=== PATIENT | male | born 1960 | race Caucasian/White ===

== ENCOUNTER → 2020-08-14 13:48 | Outpatient (BNVA) | payer OTHER, SELFPAY | PROVIDERS: PCP Internal Medicine; Referring Provider Internal Medicine; Visit Provider Internal Medicine | DX: R06.00 Dyspnea, unspecified (principal); J90 Pleural effusion, not elsewhere classified; N04.9 Nephrotic syndrome with unspecified morphologic changes; Z87.891 Personal history of nicotine dependence | CPT/HCPCS: 99203; 99214 ==

== ENCOUNTER 2020-09-05 12:34 | Outpatient (REF) | payer OTHER, SELFPAY ==
[2020-09-05 14:33] LABS: Glucose Urine UA NEG (NEG); Leukocyte Esterase Urine NEG (NEG); Nitrite Urine NEG (NEG); PH 6.5 (5.0-8.0); Specific Gravity - Urine 1.025 (1.005-1.025); Urine Blood 3+ (NEG); Urine Ketones NEG (NEG); Urine Protein 3+ MG/DL (NEG-TRACE)
[2020-09-05 14:34] LABS: Appearance Urine HAZY; Color Urine DARK YELLOW
[2020-09-05 14:40] LABS: Albumin Level 2.2 g/dL (3.5-5.0); Blood Urea Nitrogen 17 mg/dL (9-16); Calcium 7.4 mg/dL (8.4-10.2); Cholesterol 299 mg/dL; Estimated Glomerular Filt Rate > 60; HDL Cholesterol 46 mg/dL; LDL Cholesterol Calculated 230 mg/dl; Magnesium 2.2 mg/dL (1.6-2.6); Phosphorus 3.1 mg/dL (2.7-4.5); Triglycerides 116 mg/dL
[2020-09-05 14:43] LABS: Mucus Urine TRACE /LPF; RBC Urine 50-75 /HPF (0); WBC Urine 0-2 /HPF (0-4)
[2020-09-05 15:54] LABS: Creatinine Urine 293.96 mg/dL; Protein/Creatinine Ratio, Ur 6.55 (<0.2); Total Protein Urine Random 1925 mg/dL (<12)
[2020-09-05 15:55] LABS: Total Protein Urine Random 1925 mg/dL (<12)
[2020-09-05 17:10] LABS: Anion Gap 10 (12-20); Carbon Dioxide 27 mmol/L (22-29); Chloride 104 mmol/L (96-108); Potassium 3.8 mmol/l (3.3-5.1); Sodium 137 mmol/L (135-145)
[2020-09-05 18:43] LABS: Renal w Reflex Lab Use Only Order verified
[2020-09-08 17:57] LABS: LLE Markers 23
== END 2020-09-05 12:35 | disposition home or self-care (01) ==
LOC: HO.LAB 12:34
PROVIDERS: PCP Internal Medicine; Visit Provider Internal Medicine Nephrology
DX: N04.9 Nephrotic syndrome with unspecified morphologic changes (principal); N05.9 Unspecified nephritic syndrome with unspecified morphologic changes
CPT/HCPCS: 36415; 80051; 80061; 81001; 82040; 82043; 82310; 82565; 83735; 84100; 84156; 84520; 87086

== ENCOUNTER → 2020-09-10 16:32 | Outpatient (BNVA) | payer OTHER, SELFPAY | PROVIDERS: PCP Internal Medicine; Referring Provider Internal Medicine; Visit Provider Internal Medicine | DX: J44.9 Chronic obstructive pulmonary disease, unspecified (principal); J90 Pleural effusion, not elsewhere classified; Z79.899 Other long term (current) drug therapy; Z87.891 Personal history of nicotine dependence | CPT/HCPCS: 99212 ==

== ENCOUNTER 2020-09-26 10:59 | Outpatient (REF) | payer OTHER, SELFPAY ==
--- NOTE | 2020-09-26 13:23 | PFT_ITS ---
FLOWS: FEV1 of 57% of predicted at 2.30 L. FVC 57% of predicted at 3.04 L. FEV1 to FVC ratio of 0.76. No bronchodilator response. LUNG VOLUMES: Total lung capacity 61% of predicted at 4.68 L. Residual volume 64% of predicted at 1.54 L. Slow vital capacity 60% of predicted at 3.14 L. Expiratory reserve volume 76% of predicted at 1.22 L. Diffusion capacity is severely decreased, diffusion capacity adjust to being mildly decreased after correction for alveolar ventilation. IMPRESSION: Moderate restrictive ventilatory defect with no bronchodilator response. Decreased diffusion capacity suggests emphysema. MD MALINDA Lai/MODL / [id number]
== END 2020-09-26 11:00 | disposition home or self-care (01) ==
LOC: HO.RESP 10:59
PROVIDERS: PCP Internal Medicine; Visit Provider Internal Medicine
DX: R06.00 Dyspnea, unspecified (principal)
CPT/HCPCS: 94060; 94727; 94729

== ENCOUNTER 2020-09-26 14:06 | Outpatient (REF) | payer OTHER, SELFPAY ==
--- NOTE | 2020-09-26 | MR_ITS ---
EXAMINATION: MR LUMBAR SPINE WITHOUT AND WITH CONTRAST CLINICAL INFORMATION: Spinal stenosis. Neurogenic claudication. COMPARISON: CT abdomen and pelvis from 11/30/2019. CT chest from 01/25/2020. TECHNIQUE: MRI of the lumbar spine was obtained using routine sequences following the administration of 9 mL of Gadavist intravenous contrast. FINDINGS: Normal anatomic alignment. Moderate degenerative disease at L2-L3, L4-L5, and L5-S1. Overall, there is mildly decreased marrow signal throughout. Mixed Modic type discogenic endplate changes including mild Modic type I discogenic edema/enhancement from L2-L5. No suspicious marrow edema. The vertebral body heights are largely maintained. The conus medullaris terminates at the level of L2. The distal spinal cord is normal in appearance. No abnormal contrast enhancement. Moderate anasarca. Otherwise, no significant abnormalities of the paraspinal musculature. Limited evaluation of the intra-abdominal structures without significant abnormalities. The abdominal aorta is of normal contour and caliber. AXIAL SPINAL LEVELS: L1-L2: Normal annular contour. There is moderate bilateral facet joint arthropathy. There is no neural foraminal stenosis. There is no spinal canal stenosis. L2-L3: Shallow diffuse disc bulge. There is moderate bilateral facet joint arthropathy. There is no neural foraminal stenosis. There is narrowing of the subarticular zones with no overt spinal canal stenosis centrally. L3-L4: Mild diffuse disc bulge. There is moderate bilateral facet joint arthropathy. There is moderate right and mild left neural foraminal stenosis. There is narrowing of the subarticular zones with no overt spinal canal stenosis centrally moderate diffuse disc bulge. L4-L5: Moderate diffuse disc bulge. There is moderate bilateral facet joint arthropathy. There is moderate to severe left worse than right neural foraminal stenosis. There is stenosis of the left greater than right subarticular zones with mild spinal canal stenosis centrally. L5-S1: Mild diffuse disc bulge with superimposed right foraminal protrusion. There is moderate bilateral facet joint arthropathy. There is moderate to severe right worse than left neural foraminal stenosis. There is no spinal canal stenosis. MR/MR lumbar spine wo/w con IMPRESSION: 1. Moderate multilevel degenerative spinal arthropathy of the lumbar spine as described in detail above. Most notably, there is mild spinal canal stenosis at L4-L5. Narrowings of the subarticular zones from L2-L5. Moderate to severe neural foraminal stenoses from L3-S1. 2. Generalized decreased marrow signal throughout. Recommend correlation with potential underlying anemia/myelogenous disorders. 3. Moderate anasarca.
--- NOTE | 2020-09-26 14:14 | XR_ITS ---
EXAMINATION: XR SKULL CLINICAL INFORMATION: Metal shavings in eye. Foreign body. Pre-MRI screening exam. COMPARISON: None available. TECHNIQUE: 3 radiographic views of the orbits (lateral view and PA view looking up and looking down). FINDINGS: The osseous orbits are intact. Plate and screw fixation of the left frontozygomatic suture. Otherwise, no demonstrated metallic objects within the orbits. The visualized paranasal sinuses are largely clear. XR/XR pre mri screening IMPRESSION: Prior plate and screw fixation of the left frontozygomatic suture. Otherwise, no demonstrated radiopaque foreign bodies.
== END 2020-09-26 14:07 | disposition home or self-care (01) ==
LOC: HO.MRI 14:06
PROVIDERS: Visit Provider Psychiatry & Neurology Neurology
DX: M48.00 Spinal stenosis, site unspecified (principal); R06.00 Dyspnea, unspecified
CPT/HCPCS: 72158; A9585

== ENCOUNTER 2020-10-10 17:46 | Outpatient (REF) | payer OTHER, SELFPAY ==
--- NOTE | 2020-10-10 18:15 | MR_ITS ---
EXAMINATION: MR BRAIN/ORBITS WITHOUT AND WITH CONTRAST CLINICAL INFORMATION: Asymptomatic optic edema. COMPARISON: None available. TECHNIQUE: Multiplanar, multisequence MRI of the brain and orbits was obtained before and following the administration of 10 mL of Gadavist intravenous contrast. FINDINGS: No focal restricted diffusion is demonstrated to suggest acute or subacute cerebral ischemia. Few scattered periventricular and deep white matter T2 FLAIR hyperintensities most commonly seen with mild microangiopathy. The ventricles and sulcal spaces are proportional without evidence of obstructive hydrocephalus. No midline shift. No abnormalities of the posterior fossa with normal appearance of the brainstem and cerebellum. Normal positioning of the cerebellar tonsils. Susceptibility artifact associated with a metal plate along the left lateral orbital ridge. Otherwise, no demonstrated abnormalities of the orbits. No significant preseptal or retrobulbar edema. Normal appearance of the globes. Normal symmetric appearance of the extraocular musculature. No abnormalities of the intraconal or extraconal adipose tissue. Normal appearance of the optic nerves and their sheaths. Normal appearance of the lacrimal glands. No orbital fluid collections. No abnormalities of the orbital apices. Normal appearance of the optic chiasm. Normal appearance of the pituitary gland and infundibulum. Normal appearance of the cavernous sinuses without abnormal filling defects. No demonstrated abnormalities of the intracranial internal carotid or anterior cerebral arteries. Normal arterial and venous vascular flow voids are present. No abnormal contrast enhancement. The visualized premaxillary, retromaxillary, pterygopalatine fossa, and temporal fossa adipose tissue is maintained. Normal, homogeneous marrow signal. Mild mucosal thickening of the paranasal sinuses. No signal abnormalities within the mastoids. Pneumatization of the left petrous apex. MR/MR head/brain wo/w con IMPRESSION: 1. No acute intracranial abnormalities. No abnormal intracranial enhancement. 2. No MRI abnormalities of the orbits. 3. Minimal nonspecific white matter changes, most commonly seen with mild microangiopathy.
== END 2020-10-10 17:47 | disposition home or self-care (01) ==
LOC: HO.MRI 17:46
PROVIDERS: Visit Provider Psychiatry & Neurology Neurology
DX: H47.10 Unspecified papilledema (principal)
CPT/HCPCS: 70553; A9585

== ENCOUNTER 2020-11-04 11:53 | Outpatient (REF) | payer OTHER, SELFPAY ==
[2020-11-04 14:00] LABS: Anion Gap 7 (12-20); Blood Urea Nitrogen 23 mg/dL (9-16); Calcium 7.3 mg/dL (8.4-10.2); Carbon Dioxide 28 mmol/L (22-29); Chloride 109 mmol/L (96-108); Estimated Glomerular Filt Rate > 60; Magnesium 1.9 mg/dL (1.6-2.6); Phosphorus 3.5 mg/dL (2.7-4.5); Potassium 4.4 mmol/l (3.3-5.1); Sodium 140 mmol/L (135-145)
[2020-11-04 14:12] LABS: Vitamin D 25-OH Total 7.2 ng/mL (>30)
[2020-11-04 14:13] LABS: SARS COV2 IgG Negative (Negative)
[2020-11-04 16:47] LABS: Glucose Urine UA NEG (NEG); Leukocyte Esterase Urine NEG (NEG); Nitrite Urine NEG (NEG); Specific Gravity - Urine 1.025 (1.005-1.025); Urine Blood 3+ (NEG); Urine Ketones NEG (NEG); Urine Protein 3+ MG/DL (NEG-TRACE)
[2020-11-04 16:47] LABS: Renal w Reflex Lab Use Only Order verified
[2020-11-04 16:48] LABS: Appearance Urine CLEAR; Color Urine YELLOW
[2020-11-04 16:55] LABS: Bacteria Urine 1+ /LPF; WBC Urine 0 /HPF (0-4)
[2020-11-04 17:36] LABS: Creatinine Urine 131.94 mg/dL; Protein/Creatinine Ratio, Ur 3.93 (<0.2); Total Protein Urine Random 519 mg/dL (<12)
[2020-11-04 18:16] LABS: Creatinine Urine 131.82 mg/dL
[2020-11-05 18:33] LABS: Calcium (PTHI) 7.5 mg/dL (8.6-10.3); PTHI 80 pg/mL (14-64)
== END 2020-11-04 11:54 | disposition home or self-care (01) ==
LOC: HO.LAB 11:53
PROVIDERS: Visit Provider Internal Medicine Nephrology
DX: N04.9 Nephrotic syndrome with unspecified morphologic changes (principal); N05.9 Unspecified nephritic syndrome with unspecified morphologic changes; Z20.828 Contact with and (suspected) exposure to other viral communicable diseases
CPT/HCPCS: 80051; 81001; 82040; 82043; 82306; 82310; 82565; 83735; 83970; 84100; 84156; 84520; 86769

== ENCOUNTER → 2020-11-13 15:27 | Outpatient (BNVA) | payer OTHER, SELFPAY | PROVIDERS: Visit Provider Internal Medicine | DX: N04.9 Nephrotic syndrome with unspecified morphologic changes (principal); J90 Pleural effusion, not elsewhere classified; R06.00 Dyspnea, unspecified; J98.4 Other disorders of lung | CPT/HCPCS: 99212 ==

== ENCOUNTER 2020-12-18 16:43 | Outpatient (REF) | payer OTHER, SELFPAY | END 2020-12-18 16:44 | disposition home or self-care (01) | LOC: HO.LAB 16:43 | PROVIDERS: Visit Provider Internal Medicine | DX: Z20.822 Contact with and (suspected) exposure to COVID-19 (principal) | CPT/HCPCS: 36415; C9803; U0003; U0005 ==

== ENCOUNTER → 2021-01-27 10:48 | Outpatient (BNVA) | payer OTHER, SELFPAY | PROVIDERS: PCP Internal Medicine; Visit Provider Internal Medicine | DX: J98.4 Other disorders of lung (principal); J90 Pleural effusion, not elsewhere classified; R91.1 Solitary pulmonary nodule; R06.00 Dyspnea, unspecified; Z87.891 Personal history of nicotine dependence; Z79.899 Other long term (current) drug therapy | CPT/HCPCS: 99212 ==

== ENCOUNTER 2021-02-18 07:54 | Inpatient (IN) | payer OTHER, SELFPAY ==
--- NOTE | ~2021-02-18 | MR_ITS ---
EXAMINATION: MR BRAIN WITHOUT CONTRAST CLINICAL INFORMATION: Uncontrollable movement. Right arm paralysis. COMPARISON: CTA head and neck from 02/18/2021. TECHNIQUE: MRI of the brain was obtained using routine sequences without contrast. FINDINGS: Moderately motion degraded exam. There is a region of restricted diffusion involving the left arrington radiata and left caudate body. Faintly increased T2 FLAIR hyperintensity in this region. No additional restricted diffusion. No evidence of acute or chronic hemorrhagic products on heme-sensitive imaging. Scattered periventricular and deep white matter T2 FLAIR hyperintensities consistent with mild underlying microangiopathy. The ventricles are normal in morphology and size. No abnormal mass effect. No midline shift. Normal appearance of the pituitary gland. Normal positioning of the cerebellar tonsils. Normal arterial and venous vascular flow voids are present. Normal, homogeneous marrow signal. Mild mucosal thickening of the paranasal sinuses. No signal abnormalities within the mastoids. MR/MR head/brain wo con IMPRESSION: 1. Acute infarct of the left arrington radiata and left caudate body. No evidence of hemorrhagic conversion. 2. No additional acute intracranial abnormalities. Mild underlying microangiopathy.
--- NOTE | ~2021-02-18 | CT_ITS ---
EXAMINATION: CT HEAD WITHOUT CONTRAST (STROKE PROTOCOL) CLINICAL INFORMATION: Stroke protocol. Right arm paralysis since 1:30 AM. COMPARISON: MRI brain 10/10/2020 TECHNIQUE: Contiguous axial imaging was performed from the skull base to vertex without intravenous administration of contrast. Axial images are provided. This CT examination was performed using dose optimization techniques as appropriate, variously including the following: *Automated exposure control *Adjustment of mA and/or kV according to patient size (this includes techniques or standardized protocols for targeted exams where dose is matched to indication/reason for exam; i.e. extremities or head) *Use of iterative reconstruction technique DLP: 761 mGy-cm FINDINGS: There is no intracranial hemorrhage, hematoma, or extra-axial fluid collection. The ventricles are normal in size. There is no hydrocephalus, edema, or mass effect. The bueno-white matter differentiation appears symmetric. There is no visible acute territorial infarct or mass lesion. There is some left vertex dural or vascular calcification. No central dense vessel sign. There is calcification in the right basal ganglia. The calvarium appears intact. There is no pneumocephalus or orbital emphysema. The visualized sinuses and middle ears and mastoid air cells show no significant mucosal thickening. There are no air-fluid levels. There is prior reduction with hardware left superior lateral orbit. Results called and discussed with Dr. Willie Santos in the Emergency Department at [address]/CT head for stroke IMPRESSION: No acute intracranial abnormality.
--- NOTE | ~2021-02-18 | CT_ITS ---
EXAMINATION: CTA NECK WITH CONTRAST (STROKE) CTA BRAIN WITH CONTRAST (STROKE) CLINICAL INFORMATION: Suspect acute stroke. Assess for major vessel occlusion. Please call report. COMPARISON: CT scan of the head earlier 02/18/2021. MRI scan of the brain 10/10/2020. TECHNIQUE: Test bolus series followed by intravenous administration 70 mL of Omnipaque 350. Helical imaging was performed in the axial plane from the mediastinum to the skull vertex. The degree of stenosis is based off NASCET criteria. The data was processed at the geospatial information technologist workstation for generation of MIP images. Three-dimensional volume rendered reformatted images were also generated at an offline 3-D workstation. This CT examination was performed using dose optimization techniques as appropriate, variously including the following: *Automated exposure control *Adjustment of mA and/or kV according to patient size (this includes techniques or standardized protocols for targeted exams where dose is matched to indication/reason for exam; i.e. extremities or head) *Use of iterative reconstruction technique DLP: 1333 mGy-cm. FINDINGS: CT Head: There is no evidence of acute intracranial hemorrhage or territorial infarction. No abnormal mass-effect or midline shift is seen. Razo to white matter differentiation is well preserved. No extra-axial fluid collections are identified. The ventricles are normal in size. There is a small calcification in the right basal ganglia. Brain parenchymal attenuation otherwise appears normal. There is no abnormal enhancement. There are no acute osseous findings. Plate and screws are noted over the left zygomaticofrontal region. The mastoid air cells and visualized portions of the paranasal sinuses are well-aerated. CTA Neck: There is a classic configuration of the arch of the aorta. Beam hardening artifact from intravenous contrast mild distorts evaluation of the vasculature at the thoracic inlet. The great vessels of the neck are widely patent. The subclavian arteries appear normal bilaterally. The common carotid arteries have normal caliber. The carotid bifurcations bilaterally appear normal. Mild motion artifact is noted at the level of C2. The internal carotid arteries in the neck bilaterally have uniform and normal caliber. The origins of both vertebral arteries are well seen and appear normal. Both vertebral arteries are widely patent and demonstrate good opacification throughout their cervical course. The left vertebral artery is dominant. Nonvascular: There are moderate left and mild right pleural effusions. There are adjacent atelectatic changes. There are relatively extensive emphysematous changes in the upper lung zones bilaterally. There are multiple subpleural blebs and bullae are noted bilaterally. The thyroid gland appears normal. There is no cervical lymphadenopathy. There are moderate spondylitic and facet arthropathic changes in the cervical spine. CTA Head: In the anterior circulation, the distal internal carotid arteries within the neck appear normal. The intracranial internal carotid arteries and their bifurcations appear normal. The middle and anterior cerebral arteries bilaterally demonstrate normal caliber with no evidence of focal stenosis, aneurysm or vascular malformation. There is normal arborization of the middle cerebral artery branches. The anterior communicating artery is normal. In the posterior circulation, the left vertebral artery is dominant. The vertebral arteries intradurally have normal caliber; there is partial duplication of the proximal and mid intradural right vertebral artery. The basilar artery appears normal. The posterior cerebral arteries have normal caliber. The venous sinuses opacify normally. CT/CT angio head neck stroke IMPRESSION: CT head and neck: 1. There are no acute intracranial bleeds or territorial infarcts. 2. There are no masses or areas of abnormal enhancement. 3. There is fixation hardware in the left frontozygomatic region. 4. There are extensive emphysematous changes. 5. There are moderate left and mild right pleural effusions. Correlate with chest x-ray. CTA head and neck: 1. Artifact mildly degrades imaging as described above. 2. In the neck, there are no significant stenoses, and the carotid and vertebral arteries are widely patent. 3. Intracranially, there are no aneurysms, vascular malformations or areas of focal stenosis. This critical result was discussed with Dr. Kirt Santos by telephone on 02/18/2021 at 8:55 AM and it was ascertained that the content and urgency of the report was understood at the time of direct communication.
--- NOTE | ~2021-02-18 | XR_ITS ---
EXAMINATION: XR CHEST CLINICAL INFORMATION: Weakness. Rule out pneumonia. COMPARISON: CT chest 01/25/2020 TECHNIQUE: Frontal view of the chest was obtained. FINDINGS: The lungs are somewhat expanded with blunting of left CP angle and haziness left lung base likely effusion with underlying atelectasis. There is mild haziness in the right lung base with mild blunting of CP angle from small pleural effusion. Heart size is normal. Pulmonary vascularity is slightly prominent but no congestion seen. No gross bony abnormality seen. XR/XR chest 1V IMPRESSION: Bibasilar haziness and blunting of CP angle from pleural effusion, minimally larger on the left side.
--- NOTE | 2021-02-18 07:58 | ECG_ITS ---
Test Reason : STROKE PROTOCOL Blood Pressure : / mmHG Vent. Rate : 069 BPM Atrial Rate : 069 BPM P-R Int : 180 ms QRS Dur : 086 ms QT Int : 396 ms P-R-T Axes : 086 043 052 degrees QTc Int : 424 ms Normal sinus rhythm Normal ECG When compared with ECG of 02-DEC-2019 16:35, Vent. rate has decreased BY 34 BPM T wave amplitude has increased in Lateral leads Referred By: Kirt Santos Electronically Signed By:RASHAWN ROMERO
[2021-02-18 08:02] LABS: Prothrombin Time Whole Bld POC 11.9 sec (11.1-13.5)
[2021-02-18 08:10] VITALS: BP 125/67; BP 138/68; PULSE 74; PULSE 80; RESP 16; TEMP 36.9; O2SAT 100; BMI 27.3
[2021-02-18 08:27] LABS: MANUAL DIFF FLAG NO
[2021-02-18 08:29] LABS: Basophils Percent Auto 0.3 % (0-2); Eosinophils Absolute Auto 0.3 X10*3/uL (0.0-0.4); Eosinophils Percent Auto 5.4 % (0-4); Hematocrit 34.2 % (42-52); Hemoglobin 10.8 g/dl (14.0-18.0); Imm Gran Abs Auto 0.02 X10*3/uL (0.00-0.03); Imm Gran Pct Auto 0.3 % (0.0-0.4); Lymphocytes Absolute Auto 1.4 X10*3/uL (1.2-4.9); Lymphocytes Percent Auto 24.2 % (20-40); Mean Corpuscular HGB Conc 31.6 g/dl (31.0-36.0); Mean Corpuscular Hemoglobin 26.7 pg (27.0-33.0); Mean Corpuscular Volume 84.4 fL (80-98); Mean Platelet Volume 8.7 fL (9.4-12.4); Monocytes Absolute Auto 0.6 X10*3/uL (0.1-1.2); Monocytes Percent Auto 10.4 % (2-11); Neutrophils Absolute Auto 3.5 X10*3/uL (2.0-8.3); Neutrophils Percent Auto 59.4 % (45-73); Platelet Count 196 X10*3/uL (160-400); Red Blood Count 4.05 X10*6/uL (4.60-5.80); Red Cell Distribution Width 14.6 % (11.0-16.0); White Blood Count 5.9 X10*3/uL (4.8-10.8)
[2021-02-18 08:32] LABS: Glucose, Whole Blood 105 mg/dL (60-115)
[2021-02-18 08:33] LABS: INTERNATIONAL NORM RATIO 0.9 (0.9-1.1); Prothrombin Time 10.8 SEC (10.8-13.0)
[2021-02-18 08:36] LABS: Partial Thromboplastin Time 28.7 SEC (24.1-38.0)
[2021-02-18 08:39] LABS: Stroke Lab Use COMPLETE
[2021-02-18] MEDS: iohexoL 350 MG/ML 100 ML INFUS..BTL IV (08:39)
[2021-02-18 08:40] VITALS: BP 134/90
[2021-02-18 08:50] LABS: Alanine Aminotransferase 11 U/L (0-40); Albumin Level 1.7 g/dL (3.5-5.0); Alkaline Phosphatase 139 U/L (39-117); Anion Gap 8 (12-20); Aspartate Amino Transferase 24 U/L (5-37); Bilirubin Direct < 0.2 mg/dL (0.0-0.5); Bilirubin Total 0.3 mg/dL (0.0-1.0); Blood Urea Nitrogen 27 mg/dL (9-16); Calcium 7.2 mg/dL (8.4-10.2); Carbon Dioxide 23 mmol/L (22-29); Chloride 110 mmol/L (96-108); Creatinine Clr Calc Pharmacy 80.2; Estimated Glomerular Filt Rate > 60; Glucose Random 109 mg/dL (60-115); Potassium 4.9 mmol/L (3.3-5.1); Sodium 136 mmol/L (135-145)
[2021-02-18 08:53] LABS: Troponin-I High Sensitivity < 3.5 ng/L (<3.5-35.0)
--- NOTE | 2021-02-18 09:32 | ED_ITS ---
HPI - Neuro Symptoms/Deficit General Chief Complaint: Stroke Stated Complaint: STROKE ALERT,R SIDED WEAKNESS SINCE 0130 Time Seen by Provider: 02/18/21 07:58 Source: patient and family (, In[place]) Mode of arrival: EMS Limitations: no limitations History of Present Illness HPI Narrative: 60-year-old male who presents emergency department for evaluation of right-sided weakness. The patient woke up at 0130 hours to go to the bathroom. He states that he noticed weakness in his right arm and right leg. According to his , the patient fell backwards in the bathroom, he did not have any loss of consciousness. He was having difficulty moving his right arm and right leg but refused to go to the emergency department. The help the patient back to bed and the patient insisted on lying down on the floor. The patient woke up at 5:00 a.m. and was still unable to move his right arm and right leg. The states that it took her several hours to convince him to come to the emergency department. The patient presented to the emergency department as a stroke alert. I examined the patient immediately on presentation. He had some slightly dysarthric speech but answered all questions appropriately. The patient was only able to minimally move his right arm and right leg against gravity. He had decreased light touch on the right side compared to the left. The patient was taken immediately to CT scan for for CT scan of the head and a CTA of the head and neck Related Data Home Medications Medication Instructions Recorded Confirmed bupropion HCl 200 mg tablet,12 hr 200 mg PO DAILY 08/14/20 08/14/20 sustained-release carbidopa 50 mg-levodopa 200 1 tab PO DAILY 08/14/20 08/14/20 mg-entacapone 200 mg tablet cyclobenzaprine 5 mg tablet 5 mg PO BEDTIME 08/14/20 08/14/20 docusate sodium 100 mg tablet 100 mg PO BID 08/14/20 08/14/20 hydroxyzine pamoate 50 mg capsule 50 mg PO BEDTIME 08/14/20 08/14/20 melatonin 5 mg capsule 5 mg PO .qhs cap 08/14/20 08/14/20 ropinirole 1 mg tablet 1 mg PO BEDTIME 08/14/20 08/14/20 sertraline 50 mg tablet 75 mg PO DAILY tab 08/14/20 08/14/20 sildenafil 100 mg tablet 100 mg PO DAILY PRN 08/14/20 08/14/20 tamsulosin 0.4 mg capsule 0.4 mg PO BEDTIME 08/14/20 08/14/20 albuterol sulfate 90 mcg/actuation 2 puff INHALATION Q6H PRN 01/27/21 aerosol inhaler Allergies Allergy/AdvReac Type Severity Reaction Status Date / Time Penicillins [PENICILLINS] Allergy Unknown UNKNOWN Verified 01/27/21 10:58 Review of Systems Review of Systems: Yes all other systems are reviewed and are negative Neurologic: Reports Abnormal speech present (Dysarthric but comprehensible) [facility] Past Medical History [facility] Narrative: Past medical history, see below: Patient being evaluated for optic nerve swelling noted on 09/[address] Ramos, neurologist at [facility]. Patient also has Sjogren syndrome. The patient is a former smoker. He stopped smoking 6 years prior. He has a greater than 35 pack-year history of smoking, denies alcohol use. States he occasionally smokes marijuana. Medical History (Updated 02/18/21 @ 10:27 by Kirt Santos MD) Dyspnea on exertion Nephrotic syndrome Pleural effusion on right Pulmonary nodule Restrictive lung disease Social History Social History Smoking Status: Former smoker Years Smoked: 30 years of smoking Advance Directives: Yes Advance Directives Information Provided: Yes Advance Directives on File: No Physical Exam Vital Signs: Vital Signs: Last Vital Signs Temp 98.4 F 02/18/21 08:10 Pulse 80 02/18/21 08:10 Resp 16 02/18/21 08:10 BP 134/90 H 02/18/21 08:40 Pulse Ox 100 02/18/21 08:10 Body Mass Index 27.3 Const: General: cooperative, no acute distress, alert and awake Orientati on/consciousness: oriented to person, oriented to place and Other orientation findings (Speech is dysarthric but comprehensible) Limitations: no limitations HENMT: Head: Yes normal to inspection, Yes normocephalic and Yes atraumatic Ears: external ears normal Eyes: General: appearance normal, both eyes and all related structures Periorbital: periorbital findings normal Eyelids: Yes eyelids normal Conjunctivae: conjunctivae normal Sclerae: sclerae normal Corneas: corneas normal Pupils: Equal, round and reactive pupils present Direct Ophthalmoscopy: normal light reflex Neck: Neck: Yes normal visual inspection and Yes supple Lymphatic: no lymphadenopathy noted Chest: Chest palpation & inspection: normal inspection of the chest and normal palpation of entire chest wall Resp: Effort & Inspection: normal respiratory effort, abnormal respiratory pattern, no audible wheezes and no respiratory distress Auscultation: clear to auscultation bilaterally, no crackles, no rales, no rhonchi and no wheezes Cardio: Rate: regular rate Rhythm: regular rhythm Heart sounds: S1 normal heart sound present, S2 normal heart sound present and Murmur heart sound present GI: Inspection: No distended Palpation (GI): Soft to palpation, nontender, no guarding and No hepatosplenomegaly present Auscultation: normal bowel sounds : General: Yes no CVA tenderness Back/Spine/Pelvis: Back: no CVA tenderness Skin: General skin exam: no rashes or lesions noted Lesions: no lesions Rashes: no rashes Wounds: no wounds Neuro: General: oriented to person and oriented to place Cranial nerves: Ye s CN's II-XII intact bilaterally and Yes Equal, round and reactive pupils present Cognition (Neuro): normal cognition Speech: Abnormal speech present (Dysarthric but comprehensible) Motor exam (neuro): Other motor observations present (Minimal movement against gravity of right upper and lower extremities) Extrem: General: Yes normal to inspection, Yes full ROM, Yes no pedal edema and Yes no calf tenderness Psych: Appearance: grossly normal Mental Status: mental status grossly normal Speech and movement: Clear speech present Affect: normal affect Thought process: Normal thought process present Course Course Course Narrative: 60-year-old male who presents emergency department for evaluation of right upper and lower extremity weakness that began at 1:30 a.m. on the morning arrival. The patient had a NIH stroke scale of 10 and had only very minimal movement against gravity of his right upper and right lower extremities with some slight dysarthric speech. By the time the patient arrived in the emergency department at around 0820 he was outside the therapeutic window for tPA. CT scan of the brain revealed no acute process. CTA of the head and neck revealed no retrievable clots. CBC revealed mild anemia with an H&H of 10.8 and 34.2 which is chronic. Point of care glucose was 105. LFTs revealed an elevated alkaline phosphatase of 139. CK was elevated at 221 (the patient did sleep on the floor overnight). High sensitivity troponin was not detectable. I did discuss these findings with the covering neurologist Dr. Johns who recommended that the patient received aspirin 81 mg orally and that the patient be admitted to the hospital for further workup of his acute symptoms/stroke. 1026: I did discuss the patient's presentation with the covering hospitalist, Dr. Wiggins and the patient will be admitted to the hospital service for further treatment. MDM - Neuro Symptoms/Deficit Lab Data Result diagrams: 02/18/21 08:23 02/18/21 08:23 Labs: Lab Results 02/18/21 02/18/21 02/18/21 Range/Units 07:59 08:23 08:23 WBC 5.9 (4.8-10.8) X10*3/uL RBC 4.05 L (4.60-5.80) X10*6/uL Hgb 10.8 L (14.0-18.0) g/dl Hct 34.2 L (42-52) % MCV 84.4 (80-98) fL MCH 26.7 L (27.0-33.0) pg MCHC 31.6 (31.0-36.0) g/dl RDW 14.6 (11.0-16.0) % Plt Count 196 (160-400) X10*3/uL MPV 8.7 L (9.4-12.4) fL Immature Gran % (Auto) 0.3 (0.0-0.4) % Neut % (Auto) 59.4 (45-73) % Lymph % (Auto) 24.2 (20-40) % [place] % (Auto) 10.4 (2-11) % Eos % (Auto) 5.4 H (0-4) % Baso % (Auto) 0.3 (0-2) % Lymph # (Auto) 1.4 (1.2-4.9) X10*3/uL [place] # (Auto) 0.6 (0.1-1.2) X10*3/uL Eos # (Auto) 0.3 (0.0-0.4) X10*3/uL Baso # (Auto) 0.0 (0.0-0.2) X10*3/uL Abs Immat Gran (auto) 0.02 (0.00-0.03) X10*3/uL Absolute Neuts (auto) 3.5 (2.0-8.3) X10*3/uL Absolute Nucleated RBC 0.000 (0.0-0.012) X10*3/uL Nucleated RBC % (auto) 0.0 (0.0-0.2) /100WBC PT 10.8 (10.8-13.0) SEC Whole Blood PT 11.9 (11.1-13.5) sec INR 0.9 (0.9-1.1) Whole Blood INR 1.0 (0.9-1.1) APTT 28.7 (24.1-38.0) SEC Sodium (135-145) mmol/L Potassium (3.3-5.1) mmol/L Chloride (96-108) mmol/L Carbon Dioxide (22-29) mmol/L Anion Gap (12-20) BUN (9-16) mg/dL Creatinine (0.5-1.4) mg/dL Estim Creat Clear Calc Estimated GFR POC Glucose (60-115) mg/dL Random Glucose (60-115) mg/dL Calcium (8.4-10.2) mg/dL Total Bilirubin (0.0-1.0) mg/dL Direct Bilirubin (0.0-0.5) mg/dL AST (5-37) U/L ALT (0-40) U/L Alkaline Phosphatase (39-117) U/L Total Creatine Kinase (38-174) U/L Troponin I High Sens (<3.5-35.0) ng/L Total Protein (6.5-8.0) g/dL Albumin (3.5-5.0) g/dL 02/18/21 02/18/21 02/18/21 Range/Units 08:23 08:23 08:26 WBC (4.8-10.8) X10*3/uL RBC (4.60-5.80) X10*6/uL Hgb (14.0-18.0) g/dl Hct (42-52) % MCV (80-98) fL MCH (27.0-33.0) pg MCHC (31.0-36.0) g/dl RDW (11.0-16.0) % Plt Count (160-400) X10*3/uL MPV (9.4-12.4) fL Immature Gran % (Auto) (0.0-0.4) % Neut % (Auto) (45-73) % Lymph % (Auto) (20-40) % [place] % (Auto) (2-11) % Eos % (Auto) (0-4) % Baso % (Auto) (0-2) % Lymph # (Auto) (1.2-4.9) X10*3/uL [place] # (Auto) (0.1-1.2) X10*3/uL Eos # (Auto) (0.0-0.4) X10*3/uL Baso # (Auto) (0.0-0.2) X10*3/uL Abs Immat Gran (auto) (0.00-0.03) X10*3/uL Absolute Neuts (auto) (2.0-8.3) X10*3/uL Absolute Nucleated RBC (0.0-0.012) X10*3/uL Nucleated RBC % (auto) (0.0-0.2) /100WBC PT (10.8-13.0) SEC Whole Blood PT (11.1-13.5) sec INR (0.9-1.1) Whole Blood INR (0.9-1.1) APTT (24.1-38.0) SEC Sodium 136 (135-145) mmol/L Potassium 4.9 (3.3-5.1) mmol/L Chloride 110 H (96-108) mmol/L Carbon Dioxide 23 (22-29) mmol/L Anion Gap 8 L (12-20) BUN 27 H (9-16) mg/dL Creatinine 1.12 (0.5-1.4) mg/dL Estim Creat Clear Calc 80.2 Estimated GFR > 60 POC Glucose 105 (60-115) mg/dL Random Glucose 109 (60-115) mg/dL Calcium 7.2 L (8.4-10.2) mg/dL Total Bilirubin 0.3 (0.0-1.0) mg/dL Direct Bilirubin < 0.2 (0.0-0.5) mg/dL AST 24 (5-37) U/L ALT 11 (0-40) U/L Alkaline Phosphatase 139 H (39-117) U/L Total Creatine Kinase 221 H (38-174) U/L Troponin I High Sens < 3.5 (<3.5-35.0) ng/L Total Protein 4.0 L (6.5-8.0) g/dL Albumin 1.7 L (3.5-5.0) g/dL NIH Stroke Scale Internal: Initial- Upon Arrival Level of Consciousness: Alert Level of Consciousness Questions: Answers both questions correctly Level of Consciousness Commands: Performs both tasks correctly Best Gaze: Normal Visual: No visual loss Facial Palsy: Normal Motor Arm (Right): No movement Motor Arm (Left): No drift Motor Leg (Right): No movement Motor Leg (Left): No drift Limb Ataxia: Absent Sensory: Mild to moderate sensory loss Best Language: No aphasia Dysarthia: Mild to moderate dysarthria Extinction and Inattention: No abnormality Score: 10 Discharge Plan Discharge Clinical Impression: Stroke Patient Disposition: Admitted As Inpatient Prescriptions: No Action bupropion HCl 200 mg tablet sustained-release 12 hr 200 mg PO DAILY RF: 0 omqffkopj-zljrrikk-khtbtrkcrq 50-200-200 mg tablet 1 tab PO DAILY RF: 0 cyclobenzaprine 5 mg tablet 5 mg PO BEDTIME RF: 0 docusate sodium 100 mg tablet 100 mg PO BID RF: 0 hydroxyzine pamoate 50 mg capsule 50 mg PO BEDTIME RF: 0 melatonin 5 mg capsule 5 mg PO .qhs RF: 0 ropinirole 1 mg tablet 1 mg PO BEDTIME RF: 0 sertraline 50 mg tablet 75 mg PO DAILY RF: 0 sildenafil 100 mg tablet 100 mg PO DAILY PRNRF: 0 tamsulosin 0.4 mg capsule 0.4 mg PO BEDTIME RF: 0 albuterol sulfate [ProAir HFA] 90 mcg/actuation HFA aerosol inhaler 2 puff inhalation Q6H PRNRF: 0
[2021-02-18 10:00] VITALS: BP 140/77; PULSE 75; RESP 16; TEMP 36.9; O2SAT 96
[2021-02-18] MEDS: Aspirin 81 MG TAB.CHEW PO (10:56)
[2021-02-18] MEDS: ondansetron HCL 4 MG/2 ML VIAL IVPUSH (10:57)
[2021-02-18 12:00] VITALS: BP 147/80; PULSE 81; RESP 16; TEMP 36.8; O2SAT 96
--- NOTE | 2021-02-18 12:38 | MHC.STROKE ---
Addendum entered by Mireya Oneal RN 02/20/21 12:10: I MET WITH THE PATIENT AND HIS SO MARISOL TO REINFORCE STROKE EDUCATION. I PROVIDED A SCREENSHOT OF THE MRI LOCATION OF THE STROKE AND EXPLAINED THE DEFICITS RELATED TO THAT AREA OF THE BRAIN. I ANSWERED ALL OF THEIR QUESTIONS. HE IS INTERESTED IN GOING TO [place] AND HAS BEEN ACCEPTED PENDING INUSRANCE APPROVAL ALTHOUGH HE STATED [facility]. I ALSO SPOKE WITH THE SOTERO AND SHE REINFORCED THIS WITH THE PATIENT AND MARISOL. THEY ARE PLANNING FOR DISCHARGE TODAY. Addendum entered by Mireya Oneal RN 02/18/21 16:45: I MET WITH THE PATIENT AND SIGNIFICANT OTHER TO PROVIDE STROKE EDUCATION AND REVIEW THE PLAN OF CARE. THE PATIENT WAS LKW ON 02/17/21 2030 WHEN HE WENT TO BED ACCORDING TO MARISOL THE SO. SHE SAID HE GOT UP AROUND 0130 AND HE WAS WEAK BUT HE HAS A HISTORY OF NEUROLOGICAL ISSUES AND SEES A [id number] AT [facility], HE EVEN HAD A RECENT MRI BRAIN W/WO CONTRAST ON 02/04/21 AND SHE REPORTED NO ABNORMAL FINDINGS BUT SHE THOUGHT THEY WANTED A MRV. I DID RELAY THIS TO DR FARRIS BUT HE SAID IT IS NOT NEEDED AT THIS TIME. PATIENT WAS EXCLUDED FROM TPA BASED ON DELAY IN ARRIVAL FROM ONSET OF SYMPTOMS. I EXPLAINED THE PLAN OF CARE, MARISOL MENTIONED THAT HIS MOTHER WILL BE IN WITH SOME QUESTIONS. HE HAS 2 SONS AND ONE OF THEM HAS SEVERE LUNG CANCER. THE FAMILY IS GOING THROUGH A LOT. 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 MRI IS PENDING AND ALL STROKE MEASURES ARE IN PLACE. I WILL CONTINUE TO FOLLOW. Original Note: 0750 EMS PRE-NOTIFIED FOR STROKE ALERT . 0758 NOTIFIED BY THE ED, STROKE ALERT CALLED IN BY [facility]. PATIENT WITH RIGHT HEMIPARESIS ONSET 0130. NIHSS = 10. STAT CTH AND CTA H/N. NO LVO. EXCLUDED FROM TPA DUE TO DELAY IN ARRIVAL FROM SYMPTOM ONSET. PASSED SWALLOW SCREEN AT 0830 PRIOR TO ANY PO. I WILL CONTINUE TO FOLLOW.
--- NOTE | 2021-02-18 13:24 | P.CNNE_ITS ---
History of Present Illness Data of Consult Service Date: 02/18/21 Primary Care Provider: 60 years old man with underlying history of nephrotic syndrome and restrictive lung disease noted a right-sided weakness at about 01:00 in the morning today but refused to come to emergency room. He went back to bed and woke up few hours later and still noted the weakness and then came to emergency room few hours after that. When he arrived he was already out of to acute treatment protocol for stroke window and was not treated with intravenous tPA. He was noted to have right hemiparesis. It was investigated with CTA that did not reveal any large vessel disease. He was admitted for further evaluation. There was no associated headache speech or language difficulty or eye symptoms. Or dizziness. Review of Systems Review of Systems: No cold or flu-like illness trauma or seizure-like episode PMFSH Past Medical History Medical History (Updated 02/18/21 @ 13:30 by Kimberly Johns MD) Dyspnea on exertion Nephrotic syndrome Pleural effusion on right Pulmonary nodule Restrictive lung disease Social History Social History Smoking Status: Former smoker Years Smoked: 30 years of smoking Advance Directives: Yes Advance Directives Information Provided: Yes Advance Directives on File: No Meds Allergies Allergy/AdvReac Type Severity Reaction Status Date / Time Penicillins [PENICILLINS] Allergy Unknown UNKNOWN Verified 01/27/21 10:58 Active Medications: Current Medications Generic Name Dose Route Start Last Admin Trade Name Freq PRN Reason Stop Dose Admin Pharmacy Consult 1 each 02/18/21 10:50 Consult Rx Perform Med Rec MISCELLANE ONCE PRN Consult order Home Medications Medication Instructions Recorded Confirmed Last Taken Type bupropion HCl 200 mg tablet,12 hr 200 mg PO DAILY 08/14/20 02/18/21 02/17/21 History sustained-release carbidopa 50 mg-levodopa 200 2 tab PO DAILY 08/14/20 02/18/21 02/17/21 History mg-entacapone 200 mg tablet hydroxyzine pamoate 50 mg capsule 50 mg PO BEDTIME 08/14/20 02/18/21 Unknown History ropinirole 1 mg tablet 1 mg PO DAILY 08/14/20 02/18/21 02/18/21 History ropinirole 4 mg PO BEDTIME 02/18/21 02/18/21 02/17/21 History sertraline 1 tab PO BEDTIME 02/18/21 02/18/21 02/17/21 History torsemide 3 tab PO DAILY 02/18/21 02/18/21 02/17/21 History Physical Exam Vital Signs: Vital Signs: Last Vital Signs Temp 98.2 F 02/18/21 12:00 Pulse 81 02/18/21 12:00 Resp 16 02/18/21 12:00 BP 147/80 H 02/18/21 12:00 Pulse Ox 96 02/18/21 12:00 Body Mass Index 27.3 He was alert and awake with normal spontaneity of speech fluency comprehension and affect. Pupils were equal and reactive to light and extraocular muscles were intact. Visual gottlieb seem to be full to threat. There was mild right- sided facial weakness of central type. He was unable to lift his arm and leg against gravity and unable to wiggle toes. He was able to wiggle his fingers. Reflexes were absent with flexor plantars. There was no obvious neglect. Speech was slightly slurred. Results Labs CBC & Chem 7: 02/18/21 08:23 02/18/21 08:23 Labs: Short CBC 02/18/21 Range/Units 08:23 WBC 5.9 (4.8-10.8) X10*3/uL Hgb 10.8 L (14.0-18.0) g/dl Hct 34.2 L (42-52) % Plt Count 196 (160-400) X10*3/uL BMP 02/18/21 08:23 Sodium 136 Potassium 4.9 Chloride 110 H Carbon Dioxide 23 BUN 27 H Creatinine 1.12 Calcium 7.2 L Cardiac Enzymes 02/18/21 Range/Units 08:23 Total Creatine Kinase 221 H (38-174) U/L Liver Function 02/18/21 Range/Units 08:23 Total Bilirubin 0.3 (0.0-1.0) mg/dL Direct Bilirubin < 0.2 (0.0-0.5) mg/dL AST 24 (5-37) U/L ALT 11 (0-40) U/L Alkaline Phosphatase 139 H (39-117) U/L Albumin 1.7 L (3.5-5.0) g/dL His head CT without contrast did not reveal any obvious abnormality and CTA of brain and neck did not reveal any obvious vascular lesion. EKG revealed normal sinus rhythm Assessment and Plan (1) Stroke: Qualifiers: CVA mechanism: unspecified Qualified Code(s): I63.9 - Cerebral infarction, unspecified Problem details: 60 years old man who probably has a pontine infarct. This type of infarct happen from atherothrombotic disease of small to medium size arteries. Unfortun ately impact of this type of stroke would be tremendous with per minute significant hemiparesis. At this time mainstay of management is avoidance of hypotension, anti-platelet agent, statin and control of other vascular risk factors. He could be treated with subQ heparin for DVT prophylaxis. PT OT consultation is recommended. I also recommend an MRI brain without contrast to definitively make the diagnosis. Status: Acute
[2021-02-18 13:42] LABS: Glucose Urine UA NEG (NEG); Leukocyte Esterase Urine NEG (NEG); Nitrite Urine NEG (NEG); Specific Gravity - Urine 1.015 (1.005-1.025); Urine Blood 3+ (NEG); Urine Ketones NEG (NEG); Urine Protein 3+ MG/DL (NEG-TRACE)
[2021-02-18 13:43] LABS: Appearance Urine CLEAR; Color Urine YELLOW
[2021-02-18 13:50] LABS: COVID-19 Test Negative (Negative); IDNOW Serial# 08D9AD1C
[2021-02-18 14:01] LABS: WBC Urine 0 /HPF (0-4)
--- NOTE | 2021-02-18 14:14 | P.HPHOSP_ITS ---
History of Present Illness Date of Service: 02/18/21 Chief Complaint: Right sided weakness and aphasia 60-year-old male with Neuropathy, no HTN, no Diabetes, no prior history of stroke. He has neuropathy and has frequent falls. Around 130, he woke to the bathroom and fell and thought it was usual fall related to neuropathy. Around 5 am, he was noticealbly weak on right side and with garbled speech and this time brought to the ED. CT of head and CT of head and neck shows no acute changes. ECG shows no afib. Neuology recommends MRI without contrast, Aspirin and Statin. Review of Systems Review of Systems: Gen: no fever Resp: no sob, no cough CV: no chest, no JOE, no leg edema GI: No n/v, no abd pain Neuro: weak on right side, garbled speech Yes all other systems are reviewed and are negative [facility] Medical History BPH (benign prostatic hyperplasia) Depression Dyspnea on exertion Facial fracture Nephrotic syndrome Pleural effusion on right Pulmonary nodule Restless leg Restrictive lung disease Sjogren's syndrome Surgical History H/O facial fracture repair H/O left knee surgery H/O thumb surgery Social History Household Members: Spouse Housing: House Do you presently have visiting nurse or other home services: No Smoking Status: Former smoker Years Smoked: 30 years of smoking Use of substances other than those prescribed or required for medical reasons: No Have you been hit, kicked, punched, or otherwise hurt by someone within the past year? If so, by whom?: No Do you feel safe in your current relationship?: No Is there a partner from a previous relationship who is making you feel unsafe now?: No Are you made to feel afraid or neglected: No Advance Directives: Yes Advance Directives Information Provided: Yes Advance Directives on File: No Advance Directives Date on File: 02/19/21 Do you have thoughts of harming others: None Do you have a plan to hurt others: No Plan Recently lost weight without trying: No Meds Allergies Allergy/AdvReac Type Severity Reaction Status Date / Time Penicillins [PENICILLINS] Allergy Unknown UNKNOWN Verified 01/27/21 10:58 Active Medications: Current Medications Generic Name Dose Route Start Last Admin Trade Name Alize PRN Reason Stop Dose Admin Heparin Sodium (Porcine) 5,000 unit 02/18/21 14:15 Heparin Sodium,Porcine 5,000 Unit/Ml Vial SUBCUT Q8H [facility] Dextrose/Sodium Chloride 1,000 mls @ 100 mls/hr 02/18/21 14:15 D5ns IVCONT .Q10H [facility] Pharmacy Consult 1 each 02/18/21 10:50 Consult Rx Perform Med Rec MISCELLANE ONCE PRN Consult order Sodium Chloride 3 ml 02/18/21 16:00 0.9 % Sodium Chloride Flush 3 Ml Syringe IVFLUSH QSHIFT [facility] Home Medications Medication Instructions Recorded Confirmed Last Taken Type bupropion HCl 200 mg tablet,12 hr 200 mg PO DAILY 08/14/20 02/18/21 02/17/21 History sustained-release carbidopa 50 mg-levodopa 200 2 tab PO DAILY 08/14/20 02/18/21 02/17/21 History mg-entacapone 200 mg tablet hydroxyzine pamoate 50 mg capsule 50 mg PO BEDTIME 08/14/20 02/18/21 Unknown History ropinirole 1 mg tablet 1 mg PO DAILY 08/14/20 02/18/21 02/18/21 History ropinirole 4 mg PO BEDTIME 02/18/21 02/18/21 02/17/21 History sertraline 1 tab PO BEDTIME 02/18/21 02/18/21 02/17/21 History torsemide 3 tab PO DAILY 02/18/21 02/18/21 02/17/21 History Physical Exam Vital Signs and Narrative: Vital Signs: Last Vital Signs Temp 98.2 F 02/18/21 12:00 Pulse 81 02/18/21 12:00 Resp 16 02/18/21 12:00 BP 147/80 H 02/18/21 12:00 Pulse Ox 96 02/18/21 12:00 Body Mass Index 27.3 Const: Other: Constitutional Awake and Alert, No apparent distress, speech is not audible HEENT--normal eye, normal eye movment, mouth is crooked to the left Neck Supple, No lymphadenopathy Cardiovascular RRR, No M/R/G, S1 S2, No S3 S4, No pedal edema Respiratory Lungs clear, No respiratory distress Gastrointestinal Non tender, Non-distended Skin No rash Neurological Alert & oriented x3, right sided paralysis, Psychological Appropriate affect Results Labs CBC and Chem 7: 02/18/21 08:23 02/18/21 08:23 Labs: Laboratory Results - last 24 hr 02/18/21 02/18/21 02/18/21 07:59 08:23 08:23 MCV 84.4 MCH 26.7 L MCHC 31.6 RDW 14.6 Plt Count 196 MPV 8.7 L Immature Gran % (Auto) 0.3 Neut % (Auto) 59.4 Lymph % (Auto) 24.2 Foard % (Auto) 10.4 Eos % (Auto) 5.4 H Baso % (Auto) 0.3 Lymph # (Auto) 1.4 Foard # (Auto) 0.6 Eos # (Auto) 0.3 Baso # (Auto) 0.0 Abs Immat Gran (auto) 0.02 Absolute Neuts (auto) 3.5 Absolute Nucleated RBC 0.000 Nucleated RBC % (auto) 0.0 PT 10.8 Whole Blood PT 11.9 INR 0.9 Whole Blood INR 1.0 APTT 28.7 Anion Gap Estim Creat Clear Calc Estimated GFR POC Glucose Random Glucose Calcium Total Bilirubin Direct Bilirubin AST ALT Alkaline Phosphatase Total Creatine Kinase Troponin I High Sens Total Protein Albumin Urine Color Urine Appearance Urine pH Ur Specific [place] Urine Protein Urine Glucose (UA) Urine Ketones Urine Blood Urine Nitrite Ur Leukocyte Esterase Urine RBC Urine WBC Ur Squamous Epith Cells Urine Bacteria COVID-19 ([facility]) COVID-19 Clin Com 02/18/21 02/18/21 02/18/21 08:23 08:23 08:26 MCV MCH MCHC RDW Plt Count MPV Immature Gran % (Auto) Neut % (Auto) Lymph % (Auto) Foard % (Auto) Eos % (Auto) Baso % (Auto) Lymph # (Auto) Foard # (Auto) Eos # (Auto) Baso # (Auto) Abs Immat Gran (auto) Absolute Neuts (auto) Absolute Nucleated RBC Nucleated RBC % (auto) PT Whole Blood PT INR Whole Blood INR APTT Anion Gap 8 L Estim Creat Clear Calc 80.2 Estimated GFR > 60 POC Glucose 105 Random Glucose 109 Calcium 7.2 L Total Bilirubin 0.3 Direct Bilirubin < 0.2 AST 24 ALT 11 Alkaline Phosphatase 139 H Total Creatine Kinase 221 H Troponin I High Sens < 3.5 Total Protein 4.0 L Albumin 1.7 L Urine Color Urine Appearance Urine pH Ur Specific [place] Urine Protein Urine Glucose (UA) Urine Ketones Urine Blood Urine Nitrite Ur Leukocyte Esterase Urine RBC Urine WBC Ur Squamous Epith Cells Urine Bacteria COVID-19 ([facility]ONNY) COVID-19 Clin Com 02/18/21 02/18/21 13:25 13:25 MCV MCH MCHC RDW Plt Count MPV Immature Gran % (Auto) Neut % (Auto) Lymph % (Auto) Foard % (Auto) Eos % (Auto) Baso % (Auto) Lymph # (Auto) Foard # (Auto) Eos # (Auto) Baso # (Auto) Abs Immat Gran (auto) Absolute Neuts (auto) Absolute Nucleated RBC Nucleated RBC % (auto) PT Whole Blood PT INR Whole Blood INR APTT Anion Gap Estim Creat Clear Calc Estimated GFR POC Glucose Random Glucose Calcium Total Bilirubin Direct Bilirubin AST ALT Alkaline Phosphatase Total Creatine Kinase Troponin I High Sens Total Protein Albumin Urine Color YELLOW Urine Appearance CLEAR Urine pH 7.0 Ur Specific [place] 1.015 Urine Protein 3+ H Urine Glucose (UA) NEG Urine Ketones NEG Urine Blood 3+ H Urine Nitrite NEG Ur Leukocyte Esterase NEG Urine RBC 10-14 H Urine WBC 0 Ur Squamous Epith Cells NONE Urine Bacteria NONE COVID-19 ([facility]ONNY) Negative COVID-19 Clin Com See Note Imaging Radiologist's Impressions: Impressions Chest X-Ray 02/18/21 07:58 IMPRESSION: Bibasilar haziness and blunting of CP angle from pleural effusion, minimally larger on the left side. Head CT 02/18/21 07:58 IMPRESSION: No acute intracranial abnormality. Head/Neck CTA 02/18/21 07:58 IMPRESSION: CT head and neck: 1. There are no acute intracranial bleeds or territorial infarcts. 2. There are no masses or areas of abnormal enhancement. 3. There is fixation hardware in the left frontozygomatic region. 4. There are extensive emphysematous changes. 5. There are moderate left and mild right pleural effusions. Correlate with chest x-ray. CTA head and neck: 1. Artifact mildly degrades imaging as described above. 2. In the neck, there are no significant stenoses, and the carotid and vertebral arteries are widely patent. 3. Intracranially, there are no aneurysms, vascular malformations or areas of focal stenosis. This critical result was discussed with Dr. Kirt Santos by telephone on 02/18/2021 at 8:55 AM and it was ascertained that the content and urgency of the report was understood at the time of direct communication. Head/Neck CTA 02/18/21 07:58 IMPRESSION: CT head and neck: 1. There are no acute intracranial bleeds or territorial infarcts. 2. There are no masses or areas of abnormal enhancement. 3. There is fixation hardware in the left frontozygomatic region. 4. There are extensive emphysematous changes. 5. There are moderate left and mild right pleural effusions. Correlate with chest x-ray. CTA head and neck: 1. Artifact mildly degrades imaging as described above. 2. In the neck, there are no significant stenoses, and the carotid and vertebral arteries are widely patent. 3. Intracranially, there are no aneurysms, vascular malformations or areas of focal stenosis. This critical result was discussed with Dr. Kirt Santos by telephone on 02/18/2021 at 8:55 AM and it was ascertained that the content and urgency of the report was understood at the time of direct communication. Assessment and Plan (1) Stroke: Qualifiers: CVA mechanism: unspecified Qualified Code(s): I63.9 - Cerebral infarction, unspecified Status: Acute (2) COPD (chronic obstructive pulmonary disease): Status: Acute (3) Nephrotic syndrome: Status: Acute 60 year male with neuropathy, COPD here with left sided stroke with right sided troy paresis --likely from embolic stroke Plan: Acute embolic stroke-with sided weakness -MRI without contrast -ASA, Statin, -PT, OT, speech therapy -Monitor for AFIB -Get Echo -Fastin lipids Depression--Continue SSRI (Stertraline), Bupropion, Hydroxyzine Restless leg syndrome--continue ropinirole ? Parkinsonian--continue levodopa Nephrotic syndrome--not active right now, continue Torsemide Subcutaneous heparin for DVT prophylaxis.
[2021-02-18] MEDS: Heparin Sodium,Porcine 5,000 UNIT/ML VIAL 5000 UNIT SUBCUT ×2 (16:37→23:19)
[2021-02-18] MEDS: Dextrose 5 % and 0.9 % NaCl 1,000 ML 100 ML IVCONT (16:37)
[2021-02-18 17:08] VITALS: BP 139/47; PULSE 67; RESP 10; TEMP 36.6; O2SAT 98
[2021-02-18 19:26] VITALS: BP 129/76; PULSE 81; RESP 13; TEMP 36.4; O2SAT 95
--- NOTE | 2021-02-18 19:29 | PC.NURSE ---
Pt aaox4 resting on stretcher in NAD, breathing with ease on 2L NC not baseline. Pt denies complaints of pain/discomfort at this time. when asked why pt is at hospital, he states this leg wasn't working, motioning to his RLE. This RN appreciates R side facial droop, significant RUE weakness with hand grasps, significant RLE weakness unable to dorsi/plantarflex, unable to lift off stretcher against gravity. Pt stretcher is in lowest locked position, rails raised, call serrato within reach. Pt NSR on ekg monitor.
--- NOTE | 2021-02-18 20:18 | PC.NURSE ---
Report attempted x1, awaiting RN to call back
[2021-02-18 20:28] LABS: Glucose, Whole Blood 92 mg/dL (60-115)
--- NOTE | 2021-02-18 21:42 | PC.NURSE ---
Report attempted x 2
--- NOTE | 2021-02-18 21:46 | PC.NURSE ---
Provider TT with caroline to continue home meds so this RN can medicate with Requip for restless leg per pt's request.
--- NOTE | 2021-02-18 22:21 | PC.NURSE ---
Report given to MONTANA Serrano
[2021-02-19] VITALS (13 sets, daily range): BP systolic 124–164; BP diastolic 68–88; PULSE 71–98; RESP 14–20; TEMP 36.2–37.1; O2SAT 94–98; BMI 27.3
[2021-02-19] MEDS: diphenhydrAMINE HCL 50 MG/ML VIAL 25 MG IVPUSH (00:46)
[2021-02-19 01:33] LABS: Glucose, Whole Blood 124 mg/dL (60-115)
[2021-02-19] MEDS: LORazepam 2 MG/ML VIAL 0.5 MG IVPUSH (01:45)
[2021-02-19] MEDS: rOPINIRole HCL 1 MG TABLET PO ×2 (02:37→08:08)
[2021-02-19] MEDS: Dextrose 5 % and 0.9 % NaCl 1,000 ML 100 ML IVCONT ×2 (06:10→19:59)
[2021-02-19] MEDS: Heparin Sodium,Porcine 5,000 UNIT/ML VIAL 5000 UNIT SUBCUT ×3 (06:17→21:52)
[2021-02-19 08:06] LABS: Cholesterol 298 mg/dL; HDL Cholesterol 36 mg/dL; LDL Cholesterol Calculated 233 mg/dl; Triglycerides 149 mg/dL
[2021-02-19] MEDS: Torsemide 20 MG TABLET 60 MG PO (08:08)
[2021-02-19] MEDS: buPROPion HCl XL 150 MG TAB.ER.24H PO (08:08)
[2021-02-19] MEDS: Aspirin Enteric Coated 81 MG TABLET.DR PO (08:09)
--- NOTE | 2021-02-19 10:00 | CA_ITS ---
Transthoracic Echocardiogram Patient (Last, First, Middle): Ramses Leonard, Gender: Male Date of : 1960 Age: 60 Procedure Date: 02/19/2021 Procedure Type: Transthoracic Echocardiogram Location: [facility] Height: 185.42 cm Weight: 93.9 kg BSA: 2.18 m2 Heart Rate: bpm BP: 160 / 80 mmHg Lead Coater: KOREY Referring MD: Michael Kim MD Symptoms: Stroke Study Quality: Fair ECG Rhythm: Sinus Conclusions: - The left ventricular systolic function is normal. The visually estimated ejection fraction is between 55-60%. - No obvious valvular pathology seen on this study. Findings Left Ventricle Normal left ventricular cavity size. There is normal left ventricular wall thickness. The left ventricular systolic function is normal. The visually estimated ejection fraction is between 55-60%. There is no evidence of regional wall motion abnormalities. Diastolic function is normal for age. Right Ventricle Normal right ventricular cavity size and systolic function. Atria Both atria are normal in size. Aortic Valve There is a normal trileaflet aortic valve. There is no aortic valve stenosis. There is no aortic valve regurgitation. Mitral Valve The mitral valve appears normal. There is no mitral valve regurgitation. There is no mitral valve stenosis. Pulmonic Valve The pulmonic valve was not well visualized. Tricuspid Valve Normal tricuspid valve structure. There is no tricuspid valve regurgitation. Tricuspid regurgitation envelope is inadequate for calculation of right ventricular systolic pressure. Great Vessels The aortic annulus, sinuses of valsalva, and asc aorta are normal in size. Venous The inferior vena cava is normal in size and collapses greater than 50% with inspiration. Pericardium/Pleural There is no evidence of pericardial effusion. Prior Study Comparison No significant change compared to prior study dated: 02/04/2020. Recommendations, Care & Conclusions No obvious valvular pathology seen on this study. Measurements 2D Linear Measurements IVSd: 0.87 0.6-0.9/0.6-1.0 cm LVIDd: 4.74 3.9-5.3/4.2-5.9 cm LVIDd Index: 2.17 2.4-3.2/2.2-3.1 cm/m2 LVIDs: 3.03 2.0-3.6 cm LVPWd: 0.88 0.7-1.1 cm Ao Root: 3.40 2.1-3.5 cm LA Diam: 3.30 2.7-3.8/3.0-4.0 cm LAIDs Index: 1.51 1.5-2.3 cm/m2 LV Mass: 173.41 67-162/88-224 g LV Mass Index: 79.54 43-95/49-115 g/m2 LVOT Diam: 2.20 3.0+(-)1.3 cm 2D Systolic Function EF 4C: 55.70 >55% EF 2C: 62.80 >55% EF BiP: 58.20 >55% Mitral Valve MV Pk E: 0.74 MV PK A: 0.82 MV Decel Time: 289.00 E/A: 0.90 E'Lateral: 12.80 E'Medial: 9.38 E/E' Med: 7.90 E/E' Lat: 5.80 PHT: 85.00 MVA PHT: 2.59 Decel Calvert: 2.55 Aortic Valve AoV Pk Pablo: 1.38 AoV Mn Pablo: 0.95 AoV VTI: 0.31 AoV Pk Grad: 8.00 Aov Mn Grad: 4.00 KENN Cont.VTI: 2.58 LVOT LVOT Pk Pablo: 0.92 LVOT Mn Pablo: 0.58 LVOT VTI: 0.21 LVOT Pk Grad: 3.00 LVOT Mn Grad: 2.00 LVOT Diam: 2.20 LVOT Area: 3.80 Diastolic Function MV Pk E: 0.74 MV Pk A: 0.82 E/A: 0.90 E'Medial: 9.38 E/E' Med: 7.90 E' Laterial: 12.80 E/E' Lat: 5.80 Great Vessels Aorta Ao Root-2D: 3.40 2.0-3.7 cm Ao Asc: 3.40 2.1-3.4 cm Updated in Other Vendor System with Status of Final Salvatore Fuentes MD electronically signed on 02/19/2021 3:35:08 PM with status of Final
--- NOTE | 2021-02-19 10:04 | HO.PM.IMPN ---
Subjective Subjective Date of Service: 02/19/21 Interval History: Seen in f/u for acute stroke with right sided paralysis. He remains weak on right side but his speech is clear Review of Systems Gen: no fever Resp: no sob, no cough CV: no chest, no JOE, no leg edema GI: No n/v, no abd pain Neuro: No confusion, weak on right side Physical Exam Vital Signs: Vital Signs: Last Vital Signs Temp 97.7 F 02/19/21 07:40 Pulse 83 02/19/21 08:24 Resp 18 02/19/21 07:40 BP 160/88 H 02/19/21 08:24 Pulse Ox 97 02/19/21 08:24 Body Mass Index 27.3 Const: Other: Constitutional Awake and Alert, No apparent distress, speech is not audible HEENT--normal eye, normal eye movment, mouth is crooked to the left Neck Supple, No lymphadenopathy Cardiovascular RRR, No M/R/G, S1 S2, No S3 S4, No pedal edema Respiratory Lungs clear, No respiratory distress Gastrointestinal Non tender, Non-distended Skin No rash Neurological Alert & oriented x3, right sided paralysis, Psychological Appropriate affect Objective Data Current Medications Generic Name Dose Route Start Last Admin Trade Name Freq PRN Reason Stop Dose Admin Acetaminophen 650 mg 02/18/21 19:33 Acetaminophen Supp 650 Mg Supp.Rect [place] Q6H PRN Pain, Mild (Pain Scale 1-3) Aspirin 81 mg 02/19/21 09:00 02/19/21 08:09 Aspirin Enteric Coated 81 Mg Tablet.Dr PO 81 mg DAILY MARTY Administration Bupropion HCl 150 mg 02/19/21 09:00 02/19/21 08:08 Bupropion Hcl Xl 150 Mg Tab.Er.24h PO 150 mg DAILY MARTY Administration Heparin Sodium (Porcine) 5,000 unit 02/18/21 14:15 02/19/21 06:17 Heparin Sodium,Porcine 5,000 Unit/Ml Vial SUBCUT 5,000 unit Q8H MARTY Administration Dextrose/Sodium Chloride 1,000 mls @ 100 mls/hr 02/18/21 14:15 02/19/21 08:09 D5ns IVCONT 0 mls/hr .Q10H MARTY Infusion Non-Formulary Medication 2 tab 02/19/21 09:00 Xnuffkyae-Gqsdofxc-Vqqxyoslyz PO DAILY COUNT INCLUDES THE [facility] Pharmacy Consult 1 each 02/18/21 10:50 Consult Rx Perform Med Rec MISCELLANE ONCE PRN Consult order Pravastatin Sodium 40 mg 02/19/21 21:00 Pravastatin Sodium 40 Mg Tablet PO BEDTIME MARTY Ropinirole HCl 4 mg 02/19/21 21:00 Ropinirole Hcl 1 Mg Tablet PO BEDTIME MARTY Ropinirole HCl 1 mg 02/19/21 09:00 02/19/21 08:08 Ropinirole Hcl 1 Mg Tablet PO 1 mg DAILY MARTY Administration Sertraline HCl 50 mg 02/19/21 21:00 Sertraline Hcl 50 Mg Tablet PO BEDTIME MARTY Sodium Chloride 3 ml 02/18/21 16:00 02/18/21 23:18 0.9 % Sodium Chloride Flush 3 Ml Syringe IVFLUSH Not Given QSHIFT MARTY Torsemide 60 mg 02/19/21 09:00 02/19/21 08:08 Torsemide 20 Mg Tablet PO 60 mg DAILY MARTY Administration Protocol Labs CBC & Chem 7: 02/18/21 08:23 02/18/21 08:23 Assessment and Plan (1) Stroke: Status: Acute (2) COPD (chronic obstructive pulmonary disease): Status: Acute (3) Nephrotic syndrome: Status: Acute Assessment and Plan: 60 year male with neuropathy, COPD here with left sided stroke with right sided troy paresis --likely from embolic stroke Plan: Acute embolic stroke-with sided weakness -MRI confirms acute infarct of the left arrington radiata and left caudate body. -ASA -PT, OT, speech therapy -No AFIB on monitor -Echo today -Fastin lipids: TG149, Chol 298, LDL 233, HdL 36 -Lipitor 80 Depression--Continue SSRI (Stertraline), Bupropion, Hydroxyzine Restless leg syndrome--continue ropinirole ? Parkinsonian--continue levodopa Nephrotic syndrome--not active right now, continue Torsemide Subcutaneous heparin for DVT prophylaxis.: Heparin
--- NOTE | 2021-02-19 11:50 | MHC.CM.PN ---
CM met with Patient and his /HCP, at Bedside. The goal for dc is Acute Rehab and Patient's first choice is [facility], but he is agreeable to the 2 other area Acute Rehabs as well. CM has initiated and will follow for dc planning. 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
[2021-02-19] MEDS: Sertraline HCL 50 MG TABLET 75 MG PO (21:52)
[2021-02-19] MEDS: Pravastatin Sodium 40 MG TABLET PO (21:52)
[2021-02-19] MEDS: rOPINIRole HCL 1 MG TABLET 4 MG PO (21:52)
[2021-02-20] VITALS (8 sets, daily range): BP systolic 119–176; BP diastolic 65–88; PULSE 68–79; RESP 14–20; TEMP 36.4–36.7; O2SAT 92–98
[2021-02-20] MEDS: Dextrose 5 % and 0.9 % NaCl 1,000 ML 100 ML IVCONT ×2 (05:05→14:06)
[2021-02-20] MEDS: Heparin Sodium,Porcine 5,000 UNIT/ML VIAL 5000 UNIT SUBCUT ×3 (05:10→21:03)
[2021-02-20] MEDS: Aspirin Enteric Coated 81 MG TABLET.DR PO (08:27)
[2021-02-20] MEDS: rOPINIRole HCL 1 MG TABLET PO (08:27)
[2021-02-20] MEDS: Torsemide 20 MG TABLET 60 MG PO (08:27)
[2021-02-20] MEDS: 0.9 % Sodium Chloride Flush 3 ML SYRINGE IVFLUSH ×3 (08:30→21:03)
--- NOTE | 2021-02-20 11:17 | PM.DS ---
DS: Providers Provider Date of Service: 03/10/21 Date of admission: 02/18/21 14:03 Primary care physician: Finn Ray Consults: 02/19/21 09:57 Consult to Neurology Routine Consulting Provider: [facility] Reason for consultation: stroke Has provider been notified: Yes DS: Diagnosis Discharge Diagnosis (1) Stroke: Status: Acute (2) COPD (chronic obstructive pulmonary disease): (3) Nephrotic syndrome: DS: Medications Discharge Medications Home Medications: Home Medications Medication Instructions Recorded Confirmed bupropion HCl 200 mg tablet,12 hr 200 mg PO DAILY 08/14/20 02/18/21 sustained-release hydroxyzine pamoate 50 mg capsule 50 mg PO BEDTIME 08/14/20 02/18/21 ropinirole 1 mg tablet 1 mg PO DAILY 08/14/20 02/18/21 ropinirole 4 mg PO BEDTIME 02/18/21 02/18/21 sertraline 1.5 tab PO BEDTIME 02/18/21 02/19/21 lidocaine 1 appl TOPICAL BID 02/19/21 02/19/21 melatonin 10 mg PO BEDTIME PRN 02/19/21 02/19/21 DS: Summary Hospital Course Hospital Course: Chief Complaint: Right sided weakness and aphasia 60-year-old male with Neuropathy, no HTN, no Diabetes, no prior history of stroke. He has neuropathy and has frequent falls. Around 130, he woke to the bathroom and fell and thought it was usual fall related to neuropathy. Around 5 am, he was noticealbly weak on right side and with garbled speech and this time brought to the ED. CT of head and CT of head and neck shows no acute changes. ECG shows no afib. Neuology recommends MRI without contrast, Aspirin and Statin. Hospital course: He presented with right sided weakness with MRI finding of acute embolic stroke of arrington radiata and caudate body. He was out of window for TPA. Further w/u with CT of head and neck show no significant corotid disease., Echo showed no cardiac clot with normal EF--see details. He has hyperlipidemia with -Fastin lipids: TG149, Chol 298, LDL 233, HdL 36. There has not been evidence of AFIB on monitor. He has been evaulated by Neurologist Dr. Johns who recommend Statin, ASA, and BP controll. He has been on Asprin, lipitor , initially was noted to have elevated systolic blood pressure, Bur blood pressure is stable in last 24 hours, will require close outpatient blood pressure follow-up. He has been evaluated by rehab team include PT, OT and speech. His speech is back to normal and now eating with no swallowing problem. He remains weak on right side, however he showed signs sign of slight movment in the right leg continue Medical therapy including ASA, Lipitor and to be started on Blood pressure meds if needed. Acute embolic stroke-with right sided weakness Depression--Continue SSRI (Stertraline), Bupropion, Hydroxyzine Restless leg syndrome--continue ropinirole twice daily Nephrotic syndrome--not active right now, continue Torsemide To acute inpatient rehab upon discharge. Time Spent with Patient Time attestation: Total time spent providing and/or coordinating discharge services: Discharge coordination time: Greater than 30 minutes Quality: Stroke Pt Provided Written Stroke Discharge Instructions: Patient given written information Physical Exam Vital Signs: Vital Signs: Last Vital Signs Temp 97.6 F 02/20/21 07:53 Pulse 71 02/20/21 08:24 Resp 20 02/20/21 07:53 BP 176/84 H 02/20/21 08:24 Pulse Ox 96 02/20/21 08:24 Body Mass Index 27.3 Constitutional Awake and Alert, No apparent distress Neck Supple, No lymphadenopathy Cardiovascular RRR, No M/R/G, S1 S2, No S3 S4, No pedal edema Respiratory Lungs clear, No respiratory distress Gastrointestinal Non tender, Non-distended Skin No rash Neurological Alert & oriented x3, weak on right side--negligeable movment in right foot, intact speech Psychological Appropriate affect DS: Data Additional Comments Additional comments: Echo-- The left ventricular systolic function is normal. The visually estimated ejection fraction is between 55-60%. - No obvious valvular pathology seen on this study. MRI:IMPRESSION: 1. Acute infarct of the left arrington radiata and left caudate body. No evidence of hemorrhagic conversion. 2. No additional acute intracranial abnormalities. Mild underlying microangiopathy. Discharge Plan Discharge Anticipated Discharge Date/Time: 02/20/21 10:57 Patient Disposition: er SNF Discharge Diagnosis: Acute embolic stroke Referrals: [facility] [Outside] - 1 Week Finn Ray [Primary Care Provider] - 1 Week Discharge Medications: New aspirin 81 mg Tablet,Delayed Release (Dr/Ec) 81 mg PO DAILY Qty: 30 RF: 0 atorvastatin [Lipitor] 80 mg tablet 80 mg PO BEDTIME Qty: 30 RF: 0 Continued ropinirole 1 mg Tablet 4 mg PO BEDTIME RF: 0 sertraline 50 mg tablet 1.5 tab PO BEDTIME RF: 0 lidocaine 5 % Ointment 1 appl TOPICAL BID RF: 0 melatonin 10 mg Tablet 10 mg PO BEDTIME PRN (Reason: Insomnia) RF: 0 bupropion HCl 200 mg tablet sustained-release 12 hr 200 mg PO DAILY RF: 0 hydroxyzine pamoate 50 mg capsule 50 mg PO BEDTIME RF: 0 ropinirole 1 mg tablet 1 mg PO DAILY RF: 0 Discharge Orders: Discharge Order (Routine); Ordered 02/21/21 Ordered By: Michael Kim Diet: advance to usual diet Activity on Discharge: As tolerated Stand Alone Forms: Patient Portal Discharge page Care Plan Goals: Rehab for recovery from stroke Health Concerns: Acute stroke Plan of Treatment: Subacute rehab Assessment: Acuite stroke with right sided paralysis and needs rehab Discharge Date/Time: 02/21/21 16:30
--- NOTE | 2021-02-20 15:55 | MHC.CM.PN ---
pt is dcd continue to wait for ins auth from [employer] calls placed and messages left for venita [phone] did receive a call back from [employer] suggesting we call pradeep [phone] ,but, that the approval was till pending , call placed to pradeep and message was left ..additikonall a contact was made with huan from,the [employer] who says that shi is not contracted with [employer] that pts secondatry insurance which is [employer] would be the payor.cm will continue to follow and check for approval in the am another [employer] number for mpre cert is [phone] dr hall is aware caesar contacted as well [phone].
--- NOTE | 2021-02-20 18:05 | P.PNIM_ITS ---
Subjective Subjective Date of Service: 02/20/21 Interval History: Seen in f/u for acute stroke with right sided paralysis. He remains weak on right, side with subtle movment in righ leg Review of Systems Gen: no fever Resp: no sob, no cough CV: no chest, no JOE, no leg edema GI: No n/v, no abd pain Neuro: No confusion, weak on right side Physical Exam Vital Signs: Vital Signs: Last Vital Signs Temp 97.7 F 02/20/21 15:06 Pulse 72 02/20/21 15:06 Resp 18 02/20/21 15:06 BP 145/72 H 02/20/21 15:06 Pulse Ox 96 02/20/21 15:06 Body Mass Index 27.3 Const: Other: Constitutional Awake and Alert, No apparent distress, speech is not audible HEENT--normal eye, normal eye movment, mouth is crooked to the left Neck Supple, No lymphadenopathy Cardiovascular RRR, No M/R/G, S1 S2, No S3 S4, No pedal edema Respiratory Lungs clear, No respiratory distress Gastrointestinal Non tender, Non-distended Skin No rash Neurological Alert & oriented x3, right sided paralysis, Psychological Appropriate affect Objective Data Current Medications Generic Name Dose Route Start Last Admin Trade Name Freq PRN Reason Stop Dose Admin Acetaminophen 650 mg 02/18/21 19:33 Acetaminophen Supp 650 Mg Supp.Rect [place] Q6H PRN Pain, Mild (Pain Scale 1-3) Aspirin 81 mg 02/19/21 09:00 02/20/21 08:27 Aspirin Enteric Coated 81 Mg Tablet.Dr PO 81 mg DAILY MRATY Administration Bupropion HCl 150 mg 02/19/21 09:00 02/19/21 08:08 Bupropion Hcl Xl 150 Mg Tab.Er.24h PO 150 mg DAILY MARTY Administration Heparin Sodium (Porcine) 5,000 unit 02/18/21 14:15 02/20/21 14:06 Heparin Sodium,Porcine 5,000 Unit/Ml Vial SUBCUT 5,000 unit Q8H MARTY Administration Dextrose/Sodium Chloride 1,000 mls @ 100 mls/hr 02/18/21 14:15 02/20/21 14:06 D5ns IVCONT 100 mls/hr .Q10H MARTY Administration Pharmacy Consult 1 each 02/18/21 10:50 Consult Rx Perform Med Rec MISCELLANE ONCE PRN Consult order Pravastatin Sodium 40 mg 02/19/21 21:00 02/19/21 21:52 Pravastatin Sodium 40 Mg Tablet PO 40 mg BEDTIME MARTY Administration Ropinirole HCl 4 mg 02/19/21 21:00 02/19/21 21:52 Ropinirole Hcl 1 Mg Tablet PO 4 mg BEDTIME MARTY Administration Ropinirole HCl 1 mg 02/19/21 09:00 02/20/21 08:27 Ropinirole Hcl 1 Mg Tablet PO 1 mg DAILY MARTY Administration Sertraline HCl 75 mg 02/19/21 21:00 02/19/21 21:52 Sertraline Hcl 50 Mg Tablet PO 75 mg BEDTIME MARTY Administration Sodium Chloride 3 ml 02/18/21 16:00 02/20/21 15:41 0.9 % Sodium Chloride Flush 3 Ml Syringe IVFLUSH 3 ml QSHIFT MARTY Administration Torsemide 60 mg 02/19/21 09:00 02/20/21 08:27 Torsemide 20 Mg Tablet PO 60 mg DAILY MARTY Administration Protocol Labs CBC & Chem 7: 02/18/21 08:23 02/18/21 08:23 Assessment and Plan (1) Stroke: Status: Acute (2) COPD (chronic obstructive pulmonary disease): Status: Acute (3) Nephrotic syndrome: Status: Acute Assessment and Plan: 60 year male with neuropathy, COPD here with left sided stroke with right sided troy paresis --likely from embolic stroke Plan: Acute embolic stroke-with sided weakness -MRI confirms acute infarct of the left arrington radiata and left caudate body. -ASA, -PT, OT, speech therapy -No AFIB on monitor -Echo 02/19, normal EF, no clot -Fasting lipids: TG149, Chol 298, LDL 233, HdL 36--Lipitor 80 -Permissive HTN for72 hours, if BP high tomorrow, start Norvasc 5 Depression--Continue SSRI (Stertraline), Bupropion, Hydroxyzine Restless leg syndrome--continue ropinirole Nephrotic syndrome--not active right now, continue Torsemide Subcutaneous heparin for DVT prophylaxis.: Heparin He was supposed to go to rehab today but there won't be insurance authorization until Tuesday given that Tuesday is Holiday () in [facility]
--- NOTE | 2021-02-20 19:00 | MHC.CM.PN ---
CM in contact with liaison from [facility]. They do not have auth yet. It is in MD review. Pt will be here over weekend, as [employer] is not open on Tuesday. Unsure if insurance is open on Tuesday, [employer] Day. RN aware and will speak with pt. Expect d/c to [facility] either Tuesday or Tuesday. CM to follow for d/c needs.
[2021-02-20] MEDS: rOPINIRole HCL 1 MG TABLET 4 MG PO (21:40)
[2021-02-20] MEDS: Sertraline HCL 50 MG TABLET 75 MG PO (21:41)
[2021-02-21 04:00] VITALS: BP 126/69; PULSE 70; RESP 18; TEMP 36.3; O2SAT 94
[2021-02-21] MEDS: Heparin Sodium,Porcine 5,000 UNIT/ML VIAL 5000 UNIT SUBCUT ×2 (05:55→13:09)
[2021-02-21] MEDS: Aspirin Enteric Coated 81 MG TABLET.DR PO (07:45)
[2021-02-21] MEDS: 0.9 % Sodium Chloride Flush 3 ML SYRINGE IVFLUSH (07:45)
[2021-02-21 07:58] VITALS: BP 121/69; PULSE 65; RESP 17; TEMP 36.3; O2SAT 93
--- NOTE | 2021-02-21 08:25 | MHC.CM.PN ---
Pt has been accepted at [facility]. Auth request was sent to [facility] who sent it to their MD to review late Tuesday. [facility] failed to provide a determination by the end of the business day on Tuesday and they are closed through the weekend.
[2021-02-21 08:44] VITALS: BP 121/69; PULSE 65; O2SAT 93
[2021-02-21 11:22] VITALS: BP 135/61; PULSE 65; RESP 18; TEMP 36.6; O2SAT 94
--- NOTE | 2021-02-21 12:18 | P.PNIM_ITS ---
Subjective Subjective Date of Service: 02/21/21 Interval History: Patient awake alert answering questions appropriately offers no acute complaints , denies pain, has persistent right-sided weakness, some improvement in right lower extremity weakness. ROS General no headache, no dizziness, no fever chills. CVS no chest pain, no palpitation. Respiratory no cough , no sob. Gastrointestinal no nausea, no vomiting, no abdominal pain Physical Exam Vital Signs: Vital Signs: Last Vital Signs Temp 97.8 F 02/21/21 11:22 Pulse 65 02/21/21 11:22 Resp 18 02/21/21 11:22 BP 135/61 02/21/21 11:22 Pulse Ox 94 02/21/21 11:22 Body Mass Index 27.3 General no acute distress, resting in recliner. Neck is supple no JVD. CVS regular rate rhythm, Respiratory lungs clear to auscultation, no respiratory distress, no wheeze, no rhonchi. Gastrointestinal abdomen soft, nontender, bowel sounds audible Extremities no edema. Neuro alert oriented x3 speech clear, persistent right-sided paralysis , some improvement in right lower extremity weakness. Skin no rash Objective Data Current Medications Generic Name Dose Route Start Last Admin Trade Name Freq PRN Reason Stop Dose Admin Acetaminophen 650 mg 02/18/21 19:33 Acetaminophen Supp 650 Mg Supp.Rect LA Q6H PRN Pain, Mild (Pain Scale 1-3) Aspirin 81 mg 02/19/21 09:00 02/21/21 07:45 Aspirin Enteric Coated 81 Mg Tablet. PO 81 mg DAILY [facility] Administration Bupropion HCl 150 mg 02/19/21 09:00 02/21/21 07:49 Bupropion Hcl Xl 150 Mg Tab.Er.24h PO Not Given DAILY [facility] Heparin Sodium (Porcine) 5,000 unit 02/18/21 14:15 02/21/21 05:55 Heparin Sodium,Porcine 5,000 Unit/Ml Vial SUBCUT 5,000 unit Q8H [facility] Administration Pharmacy Consult 1 each 02/18/21 10:50 Consult Rx Perform Med Rec MISCELLANE ONCE PRN Consult order Pravastatin Sodium 40 mg 02/19/21 21:00 02/19/21 21:52 Pravastatin Sodium 40 Mg Tablet PO 40 mg BEDTIME MARTY Administration Ropinirole HCl 4 mg 02/19/21 21:00 02/20/21 21:40 Ropinirole Hcl 1 Mg Tablet PO 4 mg BEDTIME MARTY Administration Ropinirole HCl 1 mg 02/19/21 09:00 02/20/21 08:27 Ropinirole Hcl 1 Mg Tablet PO 1 mg DAILY MARTY Administration Sertraline HCl 75 mg 02/19/21 21:00 02/20/21 21:41 Sertraline Hcl 50 Mg Tablet PO 75 mg BEDTIME MARTY Administration Sodium Chloride 3 ml 02/18/21 16:00 02/21/21 07:45 0.9 % Sodium Chloride Flush 3 Ml Syringe IVFLUSH 3 ml QSHIFT MARTY Administration Torsemide 60 mg 02/19/21 09:00 02/21/21 07:49 Torsemide 20 Mg Tablet PO Not Given DAILY MARTY Protocol Labs CBC & Chem 7: 02/18/21 08:23 02/18/21 08:23 Assessment and Plan (1) Stroke: Status: Acute (2) Restless leg: Status: Acute (3) Depression: Status: Acute (4) Nephrotic syndrome: Status: Acute (5) COPD (chronic obstructive pulmonary disease): Status: Acute Assessment and Plan: 60 year male with neuropathy, COPD here with left sided stroke with right sided troy paresis --likely from embolic stroke Acute embolic stroke-with sided weakness No significant change in neuro examination,MRI confirms acute infarct of the left arrington radiata and left caudate body. Will continue ASA, and Lipitor 80 mg, LDL 233, total cholesterol 298 no AFib on tele monitor, echo 02/19 showed normal EF no clot stable blood pressure cont. PT, OT, speech therapy, awaiting insurance authorization for discharge to acute rehab facility Depression--Continue SSRI (Stertraline), Bupropion, Hydroxyzine Restless leg syndrome--continue ropinirole resume home dose. Nephrotic syndrome--not active right now, continue Torsemide Subcutaneous heparin for DVT prophylaxis
--- NOTE | 2021-02-21 13:16 | MHC.CM.PN ---
Addendum entered by Alexandrea Hoyt 02/21/21 13:29: PT SET TO DC TO [facility] TODAY AT 1530 HOURS [facility]. Original Note: CM received a call from [facility] [place] liaison, who reports she received a message from [employer] today and they have provided auth for pt to be transfered to acute rehab. Pt will need an updated COVID swab. [facility] requests transport be scheduled for 1530 hours. Pt aware and reports he will call his .
--- NOTE | 2021-02-21 13:16 | PM.DS ---
DS: Providers Provider Date of Service: 02/21/21 Date of admission: 02/18/21 14:03 Primary care physician: Finn Ray Consults: 02/19/21 09:57 Consult to Neurology Routine Consulting Provider: [facility] Reason for consultation: stroke Has provider been notified: Yes DS: Diagnosis Discharge Diagnosis (1) Stroke: Status: Acute (2) Restless leg: Status: Acute (3) Depression: Status: Acute (4) Nephrotic syndrome: Status: Acute (5) COPD (chronic obstructive pulmonary disease): Status: Acute DS: Medications Discharge Medications Home Medications: Home Medications Medication Instructions Recorded Confirmed bupropion HCl 200 mg tablet,12 hr 200 mg PO DAILY 08/14/20 02/18/21 sustained-release hydroxyzine pamoate 50 mg capsule 50 mg PO BEDTIME 08/14/20 02/18/21 ropinirole 1 mg tablet 1 mg PO DAILY 08/14/20 02/18/21 ropinirole 4 mg PO BEDTIME 02/18/21 02/18/21 sertraline 1.5 tab PO BEDTIME 02/18/21 02/19/21 lidocaine 1 appl TOPICAL BID 02/19/21 02/19/21 melatonin 10 mg PO BEDTIME PRN 02/19/21 02/19/21 Previous Rx's Medication Instructions Recorded aspirin 81 mg PO DAILY #30 tab 02/20/21 atorvastatin [Lipitor] 80 mg PO BEDTIME #30 tab 02/20/21 DS: Summary Hospital Course Hospital Course: Chief Complaint: Right sided weakness and aphasia 60-year-old male with Neuropathy, no HTN, no Diabetes, no prior history of stroke. He has neuropathy and has frequent falls. Around 130, he woke to the bathroom and fell and thought it was usual fall related to neuropathy. Around 5 am, he was noticealbly weak on right side and with garbled speech and this time brought to the ED. CT of head and CT of head and neck shows no acute changes. ECG shows no afib. Neuology recommends MRI without contrast, Aspirin and Statin. Hospital course: He presented with right sided weakness with MRI finding of acute embolic stroke of arrington radiata and caudate body. He was out of window for TPA. Further w/u with CT of head and neck show no significant corotid disease., Echo showed no cardiac clot with normal EF--see details. He has hyperlipidemia with -Fastin lipids: TG149, Chol 298, LDL 233, HdL 36. There has not been evidence of AFIB on monitor. He has been evaulated by Neurologist Dr. Johns who recommend Statin, ASA, and BP controll. He has been on Asprin, lipitor , initially was noted to have elevated systolic blood pressure, Bur blood pressure is stable in last 24 hours, will require close outpatient blood pressure follow-up. He has been evaluated by rehab team include PT, OT and speech. His speech is back to normal and now eating with no swallowing problem. He remains weak on right side, however he showed signs sign of slight movment in the right leg continue Medical therapy including ASA, Lipitor and to be started on Blood pressure meds if needed. Acute embolic stroke-with right sided weakness Depression--Continue SSRI (Stertraline), Bupropion, Hydroxyzine Restless leg syndrome--continue ropinirole twice daily Nephrotic syndrome--not active right now, continue Torsemide To acute inpatient rehab upon discharge. Time Spent with Patient Time attestation: Total time spent providing and/or coordinating discharge services: Discharge coordination time: Greater than 30 minutes Quality: Stroke Pt Provided Written Stroke Discharge Instructions: Patient given written information Physical Exam Vital Signs: Vital Signs: Last Vital Signs Temp 97.8 F 02/21/21 11:22 Pulse 65 02/21/21 11:22 Resp 18 02/21/21 11:22 BP 135/61 02/21/21 11:22 Pulse Ox 94 02/21/21 11:22 Body Mass Index 27.3 General patient resting comfortably in no acute distress. Neck is supple no JVD. CVS regular rate rhythm, Respiratory lungs clear to auscultation, no respiratory distress, no wheeze, no rhonchi. Gastrointestinal abdomen soft, nontender, bowel sounds audible, no guarding , no rigidity. Extremities no edema. Neuro persistent right-sided weakness, able to move right leg, speech clear. Skin no rash Discharge Plan Discharge Anticipated Discharge Date/Time: 02/20/21 10:57 Patient Disposition: Xfer SNF Discharge Diagnosis: Acute embolic stroke Referrals: Finn Ray [Primary Care Provider] - 1 Week Discharge Medications: New aspirin 81 mg Tablet,Delayed Release (Dr/Ec) 81 mg PO DAILY Qty: 30 RF: 0 atorvastatin [Lipitor] 80 mg tablet 80 mg PO BEDTIME Qty: 30 RF: 0 Continued ropinirole 1 mg Tablet 4 mg PO BEDTIME RF: 0 sertraline 50 mg tablet 1.5 tab PO BEDTIME RF: 0 lidocaine 5 % Ointment 1 appl TOPICAL BID RF: 0 melatonin 10 mg Tablet 10 mg PO BEDTIME PRN (Reason: Insomnia) RF: 0 bupropion HCl 200 mg tablet sustained-release 12 hr 200 mg PO DAILY RF: 0 hydroxyzine pamoate 50 mg capsule 50 mg PO BEDTIME RF: 0 ropinirole 1 mg tablet 1 mg PO DAILY RF: 0 Discharge Orders: Discharge Order (Routine); Ordered 02/21/21 Ordered By: Michael Kim Diet: advance to usual diet Activity on Discharge: As tolerated Stand Alone Forms: Patient Portal Discharge page Care Plan Goals: Rehab for recovery from stroke Health Concerns: Acute stroke Plan of Treatment: Subacute rehab Assessment: Acuite stroke with right sided paralysis and needs rehab
[2021-02-21] MEDS: rOPINIRole HCL 1 MG TABLET PO (13:28)
[2021-02-21 14:04] LABS: COVID-19 Test Negative (Negative)
== END 2021-02-21 16:30 | disposition skilled nursing facility (03) | DRG 65 ==
LOC: HO.ED 10:27 → HO.EDOVER 14:19 → HO.IMC 20:06
PROVIDERS: Admitting Provider Internal Medicine; Emergency Provider Emergency Medicine Emergency Medical Services; PCP Internal Medicine; Visit Provider Hospitalist
DX: I63.19 Cerebral infarction due to embolism of other precerebral artery (principal); N04.9 Nephrotic syndrome with unspecified morphologic changes; R29.710 NIHSS score 10; R47.01 Aphasia; J44.9 Chronic obstructive pulmonary disease, unspecified; G62.9 Polyneuropathy, unspecified; F32.9 Major depressive disorder, single episode, unspecified; G25.81 Restless legs syndrome; G20 Parkinson's disease; Z20.822 Contact with and (suspected) exposure to COVID-19; Z88.0 Allergy status to penicillin; Z79.82 Long term (current) use of aspirin; Z79.899 Other long term (current) drug therapy
CPT/HCPCS: 36415; 70450; 70496; 70498; 70551; 71045; 80048; 80061; 80076; 81001; 82550; 82947; 84484; 85025; 85610; 85730; 87635; 92507; 93005; 93306; 96125; 96374; 97110; 97112; 97116; 97162; 97167; 97535; 99285; J1200; J2060; J2405; Q9967

== ENCOUNTER → 2021-03-30 14:56 | Outpatient (BNVA) | payer OTHER, SELFPAY | PROVIDERS: PCP Internal Medicine; Visit Provider Internal Medicine ==

== ENCOUNTER 2021-04-01 11:50 | Outpatient (REF) | payer OTHER, SELFPAY ==
--- NOTE | ~2021-04-01 | XR_ITS ---
EXAMINATION: XR CHEST CLINICAL INFORMATION: J90 - Pleural effusion, not elsewhere classified COMPARISON: Chest radiographs 03/20/2021, 01/23/2020, CT chest noncontrast 01/25/2020 TECHNIQUE: Sitting AP and lateral views of the chest are obtained. FINDINGS: There are chronic bibasilar effusions, both increased since prior study 02/18/2021. Right effusion is larger than left, small to moderate in size with associated fluid tracking in the oblique fissure. Vascularity is within normal. There is no central vascular engorgement or definite Skye B lines. No lobar or segmental airspace consolidation. The cardiac and hilar and mediastinal contours and bony structures are unremarkable. XR/XR chest 2V IMPRESSION: Chronic bibasilar effusions, larger on right, both increased since prior study 02/18/2021.
[2021-04-01 12:43] LABS: MANUAL DIFF FLAG NO
[2021-04-01 12:47] LABS: Basophils Percent Auto 0.2 % (0-2); Eosinophils Absolute Auto 0.4 X10*3/uL (0.0-0.4); Eosinophils Percent Auto 7.2 % (0-4); Hematocrit 35.7 % (42-52); Hemoglobin 11.8 g/dl (14.0-18.0); Imm Gran Abs Auto 0.01 X10*3/uL (0.00-0.03); Imm Gran Pct Auto 0.2 % (0.0-0.4); Lymphocytes Absolute Auto 1.2 X10*3/uL (1.2-4.9); Lymphocytes Percent Auto 21.6 % (20-40); Mean Corpuscular HGB Conc 33.1 g/dl (31.0-36.0); Mean Corpuscular Volume 84.6 fL (80-98); Mean Platelet Volume 9.1 fL (9.4-12.4); Monocytes Absolute Auto 0.3 X10*3/uL (0.1-1.2); Monocytes Percent Auto 5.5 % (2-11); Neutrophils Absolute Auto 3.7 X10*3/uL (2.0-8.3); Neutrophils Percent Auto 65.3 % (45-73); Platelet Count 210 X10*3/uL (160-400); Red Blood Count 4.22 X10*6/uL (4.60-5.80); White Blood Count 5.7 X10*3/uL (4.8-10.8)
[2021-04-01 13:25] LABS: Anion Gap 9 (12-20); Blood Urea Nitrogen 29 mg/dL (9-16); Carbon Dioxide 28 mmol/L (22-29); Chloride 105 mmol/L (96-108); Estimated Glomerular Filt Rate > 60; Magnesium 2.1 mg/dL (1.6-2.6); Phosphorus 4.4 mg/dL (2.7-4.5); Potassium 4.2 mmol/L (3.3-5.1); Sodium 138 mmol/L (135-145)
[2021-04-01 13:31] LABS: Vitamin D 25-OH Total 6.6 ng/mL (>30)
[2021-04-01 13:39] LABS: Albumin Level 1.8 g/dL (3.5-5.0); Calcium 7.5 mg/dL (8.4-10.2)
[2021-04-01 14:22] LABS: Appearance Urine CLOUDY; Color Urine DARK YELLOW; Glucose Urine UA NEG (NEG); Leukocyte Esterase Urine NEG (NEG); Nitrite Urine NEG (NEG); Specific Gravity - Urine 1.025 (1.005-1.025); Urine Blood 2+ (NEG); Urine Ketones NEG (NEG); Urine Protein 3+ MG/DL (NEG-TRACE)
[2021-04-01 14:33] LABS: Granular Casts Urine 0-2 /LPF; Mucus Urine TRACE /LPF; WBC Urine 0-2 /HPF (0-4)
[2021-04-01 16:48] LABS: Total Protein Urine Random 1816 mg/dL (<12)
[2021-04-01 16:51] LABS: Creatinine Urine 281.27 mg/dL; Protein/Creatinine Ratio, Ur 6.46 (<0.2)
[2021-04-02 15:47] LABS: Antibody to SS-A Antigen >8.0 POS AI (<1.0 NEG); Antibody to SS-B Antigen <1.0 NEG AI (<1.0 NEG)
[2021-04-03 10:22] LABS: Calcium (PTHI) 7.7 mg/dL (8.6-10.3); PTHI 82 pg/mL (14-64)
[2021-04-03 22:57] LABS: Anti Nuclear Antibody Screen POSITIVE (NEGATIVE)
== END 2021-04-01 11:51 | disposition home or self-care (01) ==
LOC: HO.XRAY 11:50
PROVIDERS: Internal Medicine Nephrology; PCP Internal Medicine; Visit Provider Internal Medicine
DX: J90 Pleural effusion, not elsewhere classified (principal)
CPT/HCPCS: 36415; 71046; 80051; 81001; 82040; 82043; 82306; 82310; 82565; 83735; 83970; 84100; 84156; 84520; 85025; 86038; 86039; 86235; 87086

== ENCOUNTER 2021-04-13 15:20 | Inpatient (IN) | payer OTHER, SELFPAY ==
--- NOTE | ~2021-04-13 | US_ITS ---
EXAMINATION: US VENOUS ULTRASOUND WITH DOPPLER LOWER EXTREMITY, RIGHT CLINICAL INFORMATION: Swelling COMPARISON: None TECHNIQUE: Ultrasound of the deep veins is performed from the hip to the calf with compression sonography and color and pulse Doppler assessment. Spectral analysis with color-flow imaging is performed. FINDINGS: There is normal venous compression and respiratory variation and augmented flow. The visualized common femoral vein, superficial femoral vein, profunda femoral vein, popliteal vein, and the trifurcation region shows no evidence of deep venous thrombosis. Right peroneal vein is not well appreciated on these images. There is no significant popliteal fossa cyst. Diffuse soft tissue edema. If the patient's symptoms persist, followup ultrasound in 5 days 7 days might be of value to exclude proximal propagation from a non-visualized calf vein. US/US venous duplex LE RT IMPRESSION: No DVT demonstrated in the right lower extremity. The peroneal vein is not well appreciated on these images, possibly technique related.
--- NOTE | ~2021-04-13 | XR_ITS ---
EXAMINATION: XR CHEST CLINICAL INFORMATION: CHF. COMPARISON: Chest 04/01/2021 TECHNIQUE: Frontal view of the chest was obtained. FINDINGS: There is bibasilar haziness suggestive of effusion and underlying atelectasis. The upper lungs are clear. The heart size and pulmonary vascularity is normal. No gross bony abnormality seen. XR/XR chest 1V IMPRESSION: Bibasilar effusion with underlying atelectasis. Infiltrate cannot be excluded.
[2021-04-13 15:23] VITALS: BP 123/65; PULSE 85; RESP 16; TEMP 35.8; O2SAT 96; BMI 26.7
--- NOTE | 2021-04-13 16:15 | ED.GENADULT ---
HPI - General Adult General Chief complaint: General Medical Stated complaint: leg swelling Time Seen by Provider: 04/13/21 16:15 Source: patient Mode of arrival: ambulatory Limitations: no limitations History of Present Illness HPI narrative: Patient's history of CVA with right-sided weakness sjogrens syndrome, membranous glomerulonephropathy comes in with increased swelling of the right leg which is going on for last 1 month patient does have a swelling of right leg all the time but for last 1 month it is getting worse spreading to the lower abdomen and scrotum seen by a rustic fence builder advised to get IV diuresis patient already on torsemide 20 mg daily patient does complain of exertional shortness of breath Related Data Home Medications Medication Instructions Recorded Confirmed aspirin 81 mg PO DAILY 04/13/21 04/13/21 bupropion HCl 200 mg PO BEDTIME 04/13/21 04/13/21 hydroxyzine HCl 50 mg PO BEDTIME 04/13/21 04/13/21 ropinirole 1 mg PO DAILY 04/13/21 04/13/21 ropinirole 4 mg PO BEDTIME 04/13/21 04/13/21 sertraline 50 mg PO BEDTIME 04/13/21 04/13/21 tamsulosin 0.4 mg PO BEDTIME 04/13/21 04/13/21 torsemide 60 mg PO DAILY 04/13/21 04/13/21 Allergies Allergy/AdvReac Type Severity Reaction Status Date / Time Penicillins [PENICILLINS] Allergy Unknown UNKNOWN Verified 04/13/21 19:23 atorvastatin [From Lipitor] AdvReac Unknown Vomiting Verified 04/13/21 19:23 Review of Systems Review of Systems: Constitutional : No Weight loss, No Fever, No Chills ENT/Mouth : No sore throat, No Rhinorrhea Eyes: No Eye Pain, No Swelling Cardiovascular : No Chest Pain, no palpitations Respiratory : No Cough, No Sputum, ++ shortness of breath Gastrointestinal : no Nausea, No Vomiting, No Diarrhea, No abdominal Pain, no black stools Genitourinary : No Dysuria, No Urinary Frequency Musculoskeletal : No joint pain, No Myalgias, No Joint Swelling Skin : No Skin Lesions, No rash Neuro : No Weakness, No Numbness, No Dizziness, No Headache Psych : No Anxiety/Panic, No Depression Heme/Lymph: No Bruising, No Lymphadenopathy Endocrine : No Polyuria, No Polydipsia All other systems reviewed and are negative [facility] Past Medical History Medical History BPH (benign prostatic hyperplasia) COPD (chronic obstructive pulmonary disease) Depression Dyspnea on exertion Facial fracture Nephrotic syndrome Pleural effusion on right Pulmonary nodule Restless leg Restrictive lung disease Sjogren's syndrome Surgical History H/O facial fracture repair H/O left knee surgery H/O thumb surgery Social History Social History Household Members: Spouse Housing: Apartment Do you presently have visiting nurse or other home services: No Patient Tobacco Use Status: Never used Tobacco Years Smoked: 30 years of smoking Use of substances other than those prescribed or required for medical reasons: Yes Substance Use Type: Marijuana Substance Use Frequency: Occasionally Last Used Substance: Unknown Currently Displaying Signs/Symptoms of Drug Intoxication Withdrawal: No Any prior treatment program specific to substance use: No Have you been hit, kicked, punched, or otherwise hurt by someone within the past year? If so, by whom?: No Do you feel safe in your current relationship?: Yes Is there a partner from a previous relationship who is making you feel unsafe now?: No Are you made to feel afraid or neglected: No Advance Directives: Yes Advance Directives on File: Yes Advance Directives Date on File: 02/19/21 Do you have thoughts of harming others: None Do you have a plan to hurt others: No Plan Recently lost weight without trying: No Nutrition Risks: No Nutritional Risk Poor oral hygiene: No service: Yes Current occupational status: employed Physical Exam Vital Signs: Vital Signs: Last Vital Signs Temp 98.2 F 04/13/21 23:54 Pulse 76 04/13/21 23:54 Resp 18 04/13/21 23:54 BP 153/85 H 04/13/21 23:54 Pulse Ox 94 04/13/21 23:54 Body Mass Index 26.7 Appearance: Alert. Oriented X3. No acute distress. Eyes: PERRLA, No Nystagmus ENT: Pharynx normal. Oral Mucosa moist Neck: Normal inspection. Neck supple. CVS: Normal heart rate and rhythm. Pulses normal. Respiratory: No respiratory distress. Equal air entry bilateral, no wheezing/rales/rhonchi Abdomen: Soft and nontender. Bowel sounds are present, no mass palpable, no CVA tenderness Skin: Skin warm and dry. Normal skin color. Normal skin turgor. Extremities: Right 3+ lower extremity edema. No calf tenderness Neuro: Oriented X 3. Right-sided hemiparesis No sensory deficit.No cerebellar signs , cranial nerves II-XII intact Medical Decision Making MDM Narrative Medical decision making narrative: Patient with nephrotic syndrome secondary to membranous glomerulonephropathy with significant swelling of the right leg with hypoalbuminemia .case discussed Dr. Booker rustic fence builder who sent the patient to the ER for admission advised to have IV diuresis. Also wants neurologist to see the patient for hypercoagulable state in nephrotic syndrome will admit the patient for further evaluation venous Doppler negative for DVT in right leg Lab Data Lab results reviewed: Yes I reviewed the patient's lab results. Result diagrams: 04/13/21 17:15 04/13/21 17:15 Labs: Lab Results 04/13/21 04/13/21 04/13/21 Range/Units 17:15 17:15 17:15 WBC 5.9 (4.8-10.8) X10*3/uL RBC 3.98 L (4.60-5.80) X10*6/uL Hgb 11.0 L (14.0-18.0) g/dl Hct 34.0 L (42-52) % MCV 85.4 (80-98) fL MCH 27.6 (27.0-33.0) pg MCHC 32.4 (31.0-36.0) g/dl RDW 13.8 (11.0-16.0) % Plt Count 218 (160-400) X10*3/uL MPV 9.0 L (9.4-12.4) fL Immature Gran % (Auto) 0.3 (0.0-0.4) % Neut % (Auto) 55.6 (45-73) % Lymph % (Auto) 24.1 (20-40) % [place] % (Auto) 10.4 (2-11) % Eos % (Auto) 9.4 H (0-4) % Baso % (Auto) 0.2 (0-2) % Lymph # (Auto) 1.4 (1.2-4.9) X10*3/uL [place] # (Auto) 0.6 (0.1-1.2) X10*3/uL Eos # (Auto) 0.6 H (0.0-0.4) X10*3/uL Baso # (Auto) 0.0 (0.0-0.2) X10*3/uL Abs Immat Gran (auto) 0.02 (0.00-0.03) X10*3/uL Absolute Neuts (auto) 3.3 (2.0-8.3) X10*3/uL Absolute Nucleated RBC 0.000 (0.0-0.012) X10*3/uL Nucleated RBC % (auto) 0.0 (0.0-0.2) /100WBC PT 11.4 (10.8-13.0) SEC INR 1.0 (0.9-1.1) Sodium 141 (135-145) mmol/L Potassium 4.2 (3.3-5.1) mmol/L Chloride 107 (96-108) mmol/L Carbon Dioxide 30 H (22-29) mmol/L Anion Gap 8 L (12-20) BUN 30 H (9-16) mg/dL Creatinine 1.23 (0.5-1.4) mg/dL Estim Creat Clear Calc 70.0 Estimated GFR > 60 Random Glucose 75 (60-115) mg/dL Calcium 7.4 L (8.4-10.2) mg/dL Phosphorus 4.6 H (2.7-4.5) mg/dL Magnesium 2.1 (1.6-2.6) mg/dL Total Bilirubin 0.3 (0.0-1.0) mg/dL Direct Bilirubin < 0.2 (0.0-0.5) mg/dL AST 14 D (5-37) U/L ALT < 6 (0-40) U/L Alkaline Phosphatase 150 H (39-117) U/L B-Natriuretic Peptide (<100) pg/mL Total Protein 4.0 L (6.5-8.0) g/dL Albumin 1.7 L (3.5-5.0) g/dL Urine Color Urine Appearance Urine pH (5.0-8.0) Ur Specific [place] (1.005-1.025) Urine Protein (NEG-TRACE) MG/DL Urine Glucose (UA) (NEG) MG/DL Urine Ketones (NEG) MG/DL Urine Blood (NEG) Urine Nitrite (NEG) Ur Leukocyte Esterase (NEG) Urine RBC (0) /HPF Urine WBC (0-4) /HPF Ur Squamous Epith Cells /LPF Urine Bacteria /LPF Granular Casts /LPF Urine Yeast /HPF U Random Total Protein (<12) mg/dL Urine Creatinine mg/dL 04/13/21 04/13/21 04/13/21 Range/Units 17:15 17:15 17:15 WBC (4.8-10.8) X10*3/uL RBC (4.60-5.80) X10*6/uL Hgb (14.0-18.0) g/dl Hct (42-52) % MCV (80-98) fL MCH (27.0-33.0) pg MCHC (31.0-36.0) g/dl RDW (11.0-16.0) % Plt Count (160-400) X10*3/uL MPV (9.4-12.4) fL Immature Gran % (Auto) (0.0-0.4) % Neut % (Auto) (45-73) % Lymph % (Auto) (20-40) % [place] % (Auto) (2-11) % Eos % (Auto) (0-4) % Baso % (Auto) (0-2) % Lymph # (Auto) (1.2-4.9) X10*3/uL [place] # (Auto) (0.1-1.2) X10*3/uL Eos # (Auto) (0.0-0.4) X10*3/uL Baso # (Auto) (0.0-0.2) X10*3/uL Abs Immat Gran (auto) (0.00-0.03) X10*3/uL Absolute Neuts (auto) (2.0-8.3) X10*3/uL Absolute Nucleated RBC (0.0-0.012) X10*3/uL Nucleated RBC % (auto) (0.0-0.2) /100WBC PT (10.8-13.0) SEC INR (0.9-1.1) Sodium (135-145) mmol/L Potassium (3.3-5.1) mmol/L Chloride (96-108) mmol/L Carbon Dioxide (22-29) mmol/L Anion Gap (12-20) BUN (9-16) mg/dL Creatinine (0.5-1.4) mg/dL Estim Creat Clear Calc Estimated GFR Random Glucose (60-115) mg/dL Calcium (8.4-10.2) mg/dL Phosphorus (2.7-4.5) mg/dL Magnesium (1.6-2.6) mg/dL Total Bilirubin (0.0-1.0) mg/dL Direct Bilirubin (0.0-0.5) mg/dL AST (5-37) U/L ALT (0-40) U/L Alkaline Phosphatase (39-117) U/L B-Natriuretic Peptide 14 (<100) pg/mL Total Protein (6.5-8.0) g/dL Albumin (3.5-5.0) g/dL Urine Color DARK YELLOW Urine Appearance HAZY Urine pH 6.0 (5.0-8.0) Ur Specific [place] 1.025 (1.005-1.025) Urine Protein 3+ H (NEG-TRACE) MG/DL Urine Glucose (UA) NEG (NEG) MG/DL Urine Ketones NEG (NEG) MG/DL Urine Blood 2+ H (NEG) Urine Nitrite NEG (NEG) Ur Leukocyte Esterase NEG (NEG) Urine RBC 10-14 H (0) /HPF Urine WBC 1-4 (0-4) /HPF Ur Squamous Epith Cells NONE /LPF Urine Bacteria 1+ /LPF Granular Casts 1-4 /LPF Urine Yeast 1+ /HPF U Random Total Protein 1537 H (<12) mg/dL Urine Creatinine 307.75 mg/dL Discharge Plan Discharge Clinical Impression: Nephrotic syndrome, Right leg swelling Patient Disposition: Admitted As Inpatient Interventions: Admission Worksheet (ED) Last Done: 04/13/21 23:22 Discharge Date/Time: 04/13/21 23:43
[2021-04-13 17:22] LABS: MANUAL DIFF FLAG NO
[2021-04-13 17:24] LABS: Basophils Percent Auto 0.2 % (0-2); Eosinophils Absolute Auto 0.6 X10*3/uL (0.0-0.4); Eosinophils Percent Auto 9.4 % (0-4); Imm Gran Abs Auto 0.02 X10*3/uL (0.00-0.03); Imm Gran Pct Auto 0.3 % (0.0-0.4); Lymphocytes Absolute Auto 1.4 X10*3/uL (1.2-4.9); Lymphocytes Percent Auto 24.1 % (20-40); Mean Corpuscular HGB Conc 32.4 g/dl (31.0-36.0); Mean Corpuscular Hemoglobin 27.6 pg (27.0-33.0); Mean Corpuscular Volume 85.4 fL (80-98); Monocytes Absolute Auto 0.6 X10*3/uL (0.1-1.2); Monocytes Percent Auto 10.4 % (2-11); Neutrophils Absolute Auto 3.3 X10*3/uL (2.0-8.3); Neutrophils Percent Auto 55.6 % (45-73); Platelet Count 218 X10*3/uL (160-400); Red Blood Count 3.98 X10*6/uL (4.60-5.80); Red Cell Distribution Width 13.8 % (11.0-16.0); White Blood Count 5.9 X10*3/uL (4.8-10.8)
[2021-04-13 17:31] LABS: Prothrombin Time 11.4 SEC (10.8-13.0)
[2021-04-13 17:36] LABS: Glucose Urine UA NEG (NEG); Leukocyte Esterase Urine NEG (NEG); Nitrite Urine NEG (NEG); Specific Gravity - Urine 1.025 (1.005-1.025); Urine Blood 2+ (NEG); Urine Ketones NEG (NEG); Urine Protein 3+ MG/DL (NEG-TRACE)
[2021-04-13 17:48] LABS: Appearance Urine HAZY; Color Urine DARK YELLOW
[2021-04-13 18:04] LABS: Bacteria Urine 1+ /LPF
[2021-04-13 18:08] LABS: Alanine Aminotransferase < 6 U/L (0-40); Albumin Level 1.7 g/dL (3.5-5.0); Alkaline Phosphatase 150 U/L (39-117); Anion Gap 8 (12-20); Aspartate Amino Transferase 14 U/L (5-37); Bilirubin Direct < 0.2 mg/dL (0.0-0.5); Bilirubin Total 0.3 mg/dL (0.0-1.0); Blood Urea Nitrogen 30 mg/dL (9-16); Calcium 7.4 mg/dL (8.4-10.2); Carbon Dioxide 30 mmol/L (22-29); Chloride 107 mmol/L (96-108); Estimated Glomerular Filt Rate > 60; Glucose Random 75 mg/dL (60-115); Magnesium 2.1 mg/dL (1.6-2.6); Phosphorus 4.6 mg/dL (2.7-4.5); Potassium 4.2 mmol/L (3.3-5.1); Sodium 141 mmol/L (135-145)
[2021-04-13 18:09] LABS: B Type Natriuretic Peptide 14 pg/mL (<100); Creatinine Urine 307.75 mg/dL
[2021-04-13 18:26] LABS: Total Protein Urine Random 1537 mg/dL (<12)
--- NOTE | 2021-04-13 19:39 | PC.NURSE ---
Contacted pharmacy to obtain medication reconciliation from patient.
[2021-04-13 19:49] VITALS: BP 118/70; PULSE 76; RESP 16; TEMP 36.1; O2SAT 98
--- NOTE | 2021-04-13 19:56 | PM.IMHP ---
History of Present Illness Date of Service: 04/13/21 Chief Complaint: Right lower extremity swelling 61-year-old male with a past medical history of COPD, left chronic syndrome, Sjogren syndrome, restrictive lung disease, pulmonary nodule, history of right pleural effusion, restless leg syndrome, recent history of CVA with residual right-sided weakness; presented to the hospital with chief complaint of right lower extremity swelling. Patient reports that he has been having right lower extremity swelling for some time which has been gradually increasing. On Bumex as outpatient, follows Nephrology Dr. Booker who has seen him in the clinic today and felt that prior other extremities increasing in size and recommended him to go to the ER for further evaluation. Patient denies any pain. Patient denies any chest pain palpitations shortness of breath. Denies any fever chills cough. Denies any GI or symptoms. Review of all other systems is negative except mentioned above ER course: Per ER team patient right lower extremity appears to be swollen, venous duplex was negative for any DVT. Spoke to Dr. Booker who recommended admission for IV diuresis and further evaluation including question hypercoagulable to workup. [facility] Medical History BPH (benign prostatic hyperplasia) COPD (chronic obstructive pulmonary disease) Depression Dyspnea on exertion Facial fracture Nephrotic syndrome Pleural effusion on right Pulmonary nodule Restless leg Restrictive lung disease Sjogren's syndrome Surgical History H/O facial fracture repair H/O left knee surgery H/O thumb surgery Social History Household Members: Spouse Housing: Apartment Do you presently have visiting nurse or other home services: No Patient Tobacco Use Status: Never used Tobacco Years Smoked: 30 years of smoking Use of substances other than those prescribed or required for medical reasons: Yes Substance Use Type: Marijuana Substance Use Frequency: Occasionally Last Used Substance: Unknown Currently Displaying Signs/Symptoms of Drug Intoxication Withdrawal: No Any prior treatment program specific to substance use: No Have you been hit, kicked, punched, or otherwise hurt by someone within the past year? If so, by whom?: No Do you feel safe in your current relationship?: Yes Is there a partner from a previous relationship who is making you feel unsafe now?: No Are you made to feel afraid or neglected: No Advance Directives: Yes Advance Directives on File: Yes Advance Directives Date on File: 02/19/21 Do you have thoughts of harming others: None Do you have a plan to hurt others: No Plan Recently lost weight without trying: No Nutrition Risks: No Nutritional Risk Poor oral hygiene: No service: Yes Current occupational status: employed Meds Allergies Allergy/AdvReac Type Severity Reaction Status Date / Time Penicillins [PENICILLINS] Allergy Unknown UNKNOWN Verified 04/13/21 19:23 atorvastatin [From Lipitor] AdvReac Unknown Vomiting Verified 04/13/21 19:23 Active Medications: Current Medications Generic Name Dose Route Start Last Admin Trade Name Freq PRN Reason Stop Dose Admin Acetaminophen 650 mg 04/13/21 19:49 Acetaminophen 325 Mg Tablet PO Q6H PRN Pain, Mild (Pain Scale 1-3) Enoxaparin Sodium 40 mg 04/13/21 20:00 Enoxaparin Sodium 40 Mg/0.4 Ml Syringe SUBCUT Q24H [facility] Furosemide 40 mg 04/14/21 09:00 Furosemide 40 Mg/4 Ml Vial IVPUSH DAILY [facility] Protocol Albumin Human 100 mls @ 100 mls/hr 04/13/21 19:30 Kedbumin 25 % IV 04/13/21 21:29 Q1H MARTY Magnesium Hydroxide 30 ml 04/13/21 19:49 Milk Of Magnesia 30 Ml Oral.Susp PO DAILY PRN Constipation Pharmacy Consult 1 each 04/13/21 19:52 Consult Rx Perform Med Rec MISCELLANE ONCE PRN Consult order Senna 17.2 mg 04/13/21 19:49 Sennosides 8.6 Mg Tablet PO BEDTIME PRN Constipation Sodium Chloride 3 ml 04/14/21 00:00 0.9 % Sodium Chloride Flush 3 Ml Syringe IVFLUSH QSHIFT [facility] Home Medications Medication Instructions Recorded Confirmed Last Taken Type bupropion HCl 200 mg PO BEDTIME 04/13/21 04/13/21 04/12/21 History hydroxyzine HCl 50 mg PO BEDTIME 04/13/21 04/13/21 04/12/21 History ropinirole 1 mg PO DAILY 04/13/21 04/13/21 04/13/21 History ropinirole 4 mg PO BEDTIME 04/13/21 04/13/21 04/12/21 History sertraline 50 mg PO BEDTIME 04/13/21 04/13/21 04/12/21 History tamsulosin 0.4 mg PO BEDTIME 04/13/21 04/13/21 04/12/21 History torsemide 60 mg PO DAILY 04/13/21 04/13/21 04/13/21 History Physical Exam Vital Signs and Narrative: Vital Signs: Last Vital Signs Temp 96.4 F L 04/13/21 15:23 Pulse 85 04/13/21 15:23 Resp 16 04/13/21 15:23 BP 123/65 04/13/21 15:23 Pulse Ox 96 04/13/21 15:23 Body Mass Index 26.7 Gen: Appears be in no acute distress HEENT: NCAT, Moist mucosa. Pulmonary: Vesicular breath sounds, fair air entry CVS: Normal S1-S2 Abdomen: BS+, Soft, Nontender Extremities: Warm well perfused; right lower extremity swelling, pitting edema present, no erythema or tenderness. Neuro: Alert and awake. Noted right-sided weakness, patient is more weak on the right upper extremity than right lower extremity. Results Labs CBC and Chem 7: 04/15/21 05:00 04/15/21 04:53 Labs: Laboratory Results - last 24 hr 04/13/21 04/13/21 04/13/21 17:15 17:15 17:15 MCV 85.4 MCH 27.6 MCHC 32.4 RDW 13.8 Plt Count 218 MPV 9.0 L Immature Gran % (Auto) 0.3 Neut % (Auto) 55.6 Lymph % (Auto) 24.1 [place] % (Auto) 10.4 Eos % (Auto) 9.4 H Baso % (Auto) 0.2 Lymph # (Auto) 1.4 [place] # (Auto) 0.6 Eos # (Auto) 0.6 H Baso # (Auto) 0.0 Abs Immat Gran (auto) 0.02 Absolute Neuts (auto) 3.3 Absolute Nucleated RBC 0.000 Nucleated RBC % (auto) 0.0 PT 11.4 INR 1.0 Anion Gap 8 L Estim Creat Clear Calc 70.0 Estimated GFR > 60 Random Glucose 75 Calcium 7.4 L Phosphorus 4.6 H Magnesium 2.1 Total Bilirubin 0.3 Direct Bilirubin < 0.2 AST 14 D ALT < 6 Alkaline Phosphatase 150 H B-Natriuretic Peptide Total Protein 4.0 L Albumin 1.7 L Urine Color Urine Appearance Urine pH Ur Specific [place] Urine Protein Urine Glucose (UA) Urine Ketones Urine Blood Urine Nitrite Ur Leukocyte Esterase Urine RBC Urine WBC Ur Squamous Epith Cells Urine Bacteria Granular Casts Urine Yeast U Random Total Protein Urine Creatinine 04/13/21 04/13/21 04/13/21 17:15 17:15 17:15 MCV MCH MCHC RDW Plt Count MPV Immature Gran % (Auto) Neut % (Auto) Lymph % (Auto) [place] % (Auto) Eos % (Auto) Baso % (Auto) Lymph # (Auto) [place] # (Auto) Eos # (Auto) Baso # (Auto) Abs Immat Gran (auto) Absolute Neuts (auto) Absolute Nucleated RBC Nucleated RBC % (auto) PT INR Anion Gap Estim Creat Clear Calc Estimated GFR Random Glucose Calcium Phosphorus Magnesium Total Bilirubin Direct Bilirubin AST ALT Alkaline Phosphatase B-Natriuretic Peptide 14 Total Protein Albumin Urine Color DARK YELLOW Urine Appearance HAZY Urine pH 6.0 Ur Specific [place] 1.025 Urine Protein 3+ H Urine Glucose (UA) NEG Urine Ketones NEG Urine Blood 2+ H Urine Nitrite NEG Ur Leukocyte Esterase NEG Urine RBC 10-14 H Urine WBC 1-4 Ur Squamous Epith Cells NONE Urine Bacteria 1+ Granular Casts 1-4 Urine Yeast 1+ U Random Total Protein 1537 H Urine Creatinine 307.75 Imaging Radiologist's Impressions: Impressions Venous Duplex 04/13/21 16:24 IMPRESSION: No DVT demonstrated in the right lower extremity. The peroneal vein is not well appreciated on these images, possibly technique related. Chest X-Ray 04/13/21 16:30 IMPRESSION: Bibasilar effusion with underlying atelectasis. Infiltrate cannot be excluded. Assessment and Plan (1) Right leg swelling: Status: Acute 61-year-old male with a past medical history of nephrology syndrome, CVA with right-sided weakness, Sjogren syndrome, restrictive lung disease, restless leg syndrome, BPH presented to the hospital with a chief complaint of right lower extremity swelling. Right extremity swelling: Patient reported it has been present chronically but has been gradually increasing. Denies any pain or tenderness. No signs of infection. Venous duplex negative for DVT. Nephrology recommended IV diuresis. Will give the patient Lasix 40 mg IV daily. Patient has known history of nephrotic syndrome. History of CVA: Question hypercoagulable state contributing to the CVA. Will consult Neurology and Hematology for further recommendations including if needed for any anticoagulation. Patient denies any new symptoms. For all other chronic conditions, home medications will be continued. DVT prophylaxis: Lovenox Code status: Full code
[2021-04-13] MEDS: Albumin Human 25 % 100 ML IV ×2 (20:25→21:36)
[2021-04-13] MEDS: Furosemide 20 MG/2 ML VIAL IVPUSH (20:25)
[2021-04-13] MEDS: Enoxaparin Sodium 40 MG/0.4 ML SYRINGE SUBCUT (20:26)
[2021-04-13 21:00] LABS: COVID-19 Test Negative (Negative)
[2021-04-13] MEDS: Sertraline HCL 50 MG TABLET PO (21:36)
[2021-04-13] MEDS: buPROPion HCl XL 150 MG TAB.ER.24H PO (21:36)
[2021-04-13] MEDS: Tamsulosin HCL 0.4 MG CAPSULE PO (21:36)
[2021-04-13] MEDS: hydrOXYzine HCL 50 MG TABLET PO (21:36)
[2021-04-13 23:54] VITALS: BP 153/85; PULSE 76; RESP 18; TEMP 36.8; O2SAT 94
[2021-04-13] MEDS: 0.9 % Sodium Chloride Flush 3 ML SYRINGE IVFLUSH (23:56)
[2021-04-14 03:44] VITALS: BP 137/76; PULSE 73; RESP 18; TEMP 36.8; O2SAT 94
[2021-04-14 06:44] LABS: MANUAL DIFF FLAG NO
[2021-04-14 06:49] LABS: Basophils Percent Auto 0.4 % (0-2); Eosinophils Absolute Auto 0.6 X10*3/uL (0.0-0.4); Eosinophils Percent Auto 11.1 % (0-4); Hematocrit 29.2 % (42-52); Hemoglobin 9.6 g/dl (14.0-18.0); Imm Gran Abs Auto 0.01 X10*3/uL (0.00-0.03); Imm Gran Pct Auto 0.2 % (0.0-0.4); Lymphocytes Absolute Auto 1.6 X10*3/uL (1.2-4.9); Lymphocytes Percent Auto 29.8 % (20-40); Mean Corpuscular HGB Conc 32.9 g/dl (31.0-36.0); Mean Corpuscular Hemoglobin 27.9 pg (27.0-33.0); Mean Corpuscular Volume 84.9 fL (80-98); Mean Platelet Volume 9.4 fL (9.4-12.4); Monocytes Absolute Auto 0.6 X10*3/uL (0.1-1.2); Monocytes Percent Auto 11.9 % (2-11); Neutrophils Absolute Auto 2.4 X10*3/uL (2.0-8.3); Neutrophils Percent Auto 46.6 % (45-73); Platelet Count 193 X10*3/uL (160-400); Red Blood Count 3.44 X10*6/uL (4.60-5.80); Red Cell Distribution Width 13.7 % (11.0-16.0); White Blood Count 5.2 X10*3/uL (4.8-10.8)
[2021-04-14 07:19] LABS: Magnesium 2.1 mg/dL (1.6-2.6)
[2021-04-14 07:31] LABS: Anion Gap 8 (12-20); Blood Urea Nitrogen 26 mg/dL (9-16); Calcium 7.5 mg/dL (8.4-10.2); Carbon Dioxide 27 mmol/L (22-29); Chloride 110 mmol/L (96-108); Creatinine Clr Calc Pharmacy 82.9; Estimated Glomerular Filt Rate > 60; Glucose Random 89 mg/dL (60-115); Potassium 3.9 mmol/L (3.3-5.1); Sodium 141 mmol/L (135-145)
[2021-04-14 07:41] VITALS: BP 126/69; PULSE 68; RESP 18; TEMP 36.8; O2SAT 95
--- NOTE | 2021-04-14 08:35 | MHC.CM.PN ---
CM met with Patient at bedside; Patient lives in an apartment with his /HCP and he uses a w/c to assist with mobility. [facility].Returning home is the goal for dc and CM has initiated and will follow for dc planning. PCP is Dr. Finn Ray.
[2021-04-14] MEDS: rOPINIRole HCL 1 MG TABLET PO (09:16)
[2021-04-14] MEDS: Furosemide 40 MG/4 ML VIAL IVPUSH ×2 (09:16→17:36)
[2021-04-14] MEDS: Torsemide 20 MG TABLET 60 MG PO (09:17)
[2021-04-14] MEDS: 0.9 % Sodium Chloride Flush 3 ML SYRINGE IVFLUSH ×3 (09:17→20:32)
[2021-04-14] MEDS: Aspirin Enteric Coated 81 MG TABLET.DR PO (09:17)
[2021-04-14 11:07] VITALS: BP 119/67; PULSE 68; RESP 20; TEMP 37; O2SAT 94
[2021-04-14 16:00] VITALS: BP 132/68; PULSE 53; RESP 16; TEMP 36.8; O2SAT 95
--- NOTE | 2021-04-14 16:02 | HO.PM.IMPN ---
Subjective Subjective Date of Service: 04/14/21 Interval History: the patient was seen and evaluated this morning Laying in bed, feels comfortable overall Right lower extremity swollen but no tenderness reported Notified right-sided upper extremity significant weakness Denies any fever, chills or shortness of breath No reported other overnight events. Systemic review: No fever, chills but reports increase weakness No chest pain, palpitation , right lower extremity swelling No shortness of breath or coughing No abdominal pain, nausea or vomiting No urinary symptoms No any rash or wounds Physical Exam Vital Signs: Vital Signs: Last Vital Signs Temp 98.6 F 04/14/21 11:07 Pulse 68 04/14/21 11:07 Resp 20 04/14/21 11:07 BP 119/67 04/14/21 11:07 Pulse Ox 94 04/14/21 11:07 Body Mass Index 26.7 Const: Other: Constitutional : Alert, oriented, not in distress Neck : Normal inspection, Supple Cardiovascular : RRR, S1 S2, +3 right lower extremity edema Respiratory : Good bilateral air entry, no crackles, wheezes or rhonchi Gastrointestinal: soft, lax, Normal bowel sounds, Non tender Skin : Warm/Dry, No rash Neurological : Alert & oriented x3, right hemiparesis Objective Data Current Medications Generic Name Dose Route Start Last Admin Trade Name Freq PRN Reason Stop Dose Admin Acetaminophen 650 mg 04/13/21 19:49 Acetaminophen 325 Mg Tablet PO Q6H PRN Pain, Mild (Pain Scale 1-3) Aspirin 81 mg 04/14/21 09:00 04/14/21 09:17 Aspirin Enteric Coated 81 Mg Tablet.Dr PO 81 mg DAILY MARTY Administration Bupropion HCl 150 mg 04/13/21 21:25 04/13/21 21:38 Bupropion Hcl Xl 150 Mg Tab.Er.24h PO Not Given BEDTIME MARTY Enoxaparin Sodium 40 mg 04/13/21 20:00 04/13/21 20:26 Enoxaparin Sodium 40 Mg/0.4 Ml Syringe SUBCUT 40 mg Q24H MARTY Administration Furosemide 40 mg 04/14/21 09:00 04/14/21 09:16 Furosemide 40 Mg/4 Ml Vial IVPUSH 40 mg DAILY MARTY Administration Protocol Hydroxyzine HCl 50 mg 04/13/21 21:00 04/13/21 21:36 Hydroxyzine Hcl 50 Mg Tablet PO 50 mg BEDTIME MARTY Administration Magnesium Hydroxide 30 ml 04/13/21 19:49 Milk Of Magnesia 30 Ml Oral.Susp PO DAILY PRN Constipation Pharmacy Consult 1 each 04/13/21 19:52 Consult Rx Perform Med Rec MISCELLANE ONCE PRN Consult order Ropinirole HCl 1 mg 04/14/21 09:00 04/14/21 09:16 Ropinirole Hcl 1 Mg Tablet PO 1 mg DAILY MARTY Administration Ropinirole HCl 4 mg 04/13/21 21:25 04/13/21 21:38 Ropinirole Hcl 2 Mg Tablet PO Not Given BEDTIME MARTY Senna 17.2 mg 04/13/21 19:49 Sennosides 8.6 Mg Tablet PO BEDTIME PRN Constipation Sertraline HCl 50 mg 04/13/21 21:00 04/13/21 21:36 Sertraline Hcl 50 Mg Tablet PO 50 mg BEDTIME MARTY Administration Sodium Chloride 3 ml 04/14/21 00:00 04/14/21 09:17 0.9 % Sodium Chloride Flush 3 Ml Syringe IVFLUSH 3 ml QSHIFT MARTY Administration Tamsulosin HCl 0.4 mg 04/13/21 21:00 04/13/21 21:36 Tamsulosin Hcl 0.4 Mg Capsule PO 0.4 mg BEDTIME MARTY Administration Torsemide 60 mg 04/14/21 09:00 04/14/21 09:17 Torsemide 20 Mg Tablet PO 60 mg DAILY MARTY Administration Protocol Labs CBC & Chem 7: 04/14/21 05:57 04/14/21 05:57 Assessment and Plan (1) Right leg swelling: Status: Acute Assessment and Plan: 61-year-old male with a past medical history of nephrology syndrome, CVA with right-sided weakness, Sjogren syndrome, restrictive lung disease, restless leg syndrome, BPH presented to the hospital with a chief complaint of right lower extremity swelling. Right extremity swelling Secondary to fluid overload Nephrotic syndrome Venous duplex negative for DVT. Continue IV diuresis b.i.d. Nephrology input appreciated History of CVA Question hypercoagulable state contributing to CVA. Consult placed for Neurology and Hematology for further recommendations including if needed for any anticoagulation to prevent further CVA Patient denies any new symptoms. For all other chronic conditions, home medications will be continued. DVT prophylaxis: Lovenox
--- NOTE | 2021-04-14 16:37 | P.CNNE_ITS ---
History of Present Illness Data of Consult Service Date: 04/14/21 Primary Care Provider: Finn SARGENT Reason for consult: Swelling of the right lower extremity. Left hemisphere stroke in February This is a 61-year-old man with a history of nephrotic syndrome, Sjogren's syndrome, Stroke in the left hemisphere in February 2021, restrictive pulmonary disease and pleural effusion, who is now admitted because of increased swelling in the right lower extremity. His venous duplex does not show any evidence of DVT. He has right hemiparalysis from his previous stroke. We were asked to consult upon him regarding anticoagulation. Review of Systems Eyes: Eyes: Reports no additional eye complaints ENT: Reports system reviewed and no additional complaints, except as documented and Reports Normal hearing present Cardiovascular: Cardiovascular: Reports no additional cardiovascular complaints Respiratory: Respiratory: Reports no additional respiratory complaints Gastrointestinal: Gastrointestinal: Reports no additional gastrointestinal complaints Genitourinary: Genitourinary: Reports no additional male genitourinary complaints Musculoskeletal: Musculoskeletal: Reports no additional musculoskeletal complaints Integumentary/Breasts: Skin/Breast: Reports system reviewed and no additional complaints, except as docu Neurologic: Reports as per HPI and Reports Normal hearing present Psychiatric: Psychiatric: Reports as per HPI Endocrine: Endocrine: Reports no additional endocrine complaints Hematologic/Lymphatic: Hematologic/Lymphatic: Reports no additional hematologic/lymphatic complaints Allergic/Immunologic: Allergic/Immunologic: Reports no additional allergic/immunologic complaints [facility] Past Medical History Medical History BPH (benign prostatic hyperplasia) COPD (chronic obstructive pulmonary disease) Depression Dyspnea on exertion Facial fracture Nephrotic syndrome Pleural effusion on right Pulmonary nodule Restless leg Restrictive lung disease Sjogren's syndrome Surgical History Surgical History H/O facial fracture repair H/O left knee surgery H/O thumb surgery Social History Social History Household Members: Spouse Housing: Apartment Do you presently have visiting nurse or other home services: No Patient Tobacco Use Status: Never used Tobacco Years Smoked: 30 years of smoking Use of substances other than those prescribed or required for medical reasons: Yes Substance Use Type: Marijuana Substance Use Frequency: Occasionally Last Used Substance: Unknown Currently Displaying Signs/Symptoms of Drug Intoxication Withdrawal: No Any prior treatment program specific to substance use: No Have you been hit, kicked, punched, or otherwise hurt by someone within the past year? If so, by whom?: No Do you feel safe in your current relationship?: Yes Is there a partner from a previous relationship who is making you feel unsafe now?: No Are you made to feel afraid or neglected: No Advance Directives: Yes Advance Directives on File: Yes Advance Directives Date on File: 02/19/21 Do you have thoughts of harming others: None Do you have a plan to hurt others: No Plan Recently lost weight without trying: No Nutrition Risks: No Nutritional Risk Poor oral hygiene: No service: Yes Current occupational status: employed Meds Allergies Allergy/AdvReac Type Severity Reaction Status Date / Time Penicillins [PENICILLINS] Allergy Unknown UNKNOWN Verified 04/13/21 19:23 atorvastatin [From Lipitor] AdvReac Unknown Vomiting Verified 04/13/21 19:23 Active Medications: Current Medications Generic Name Dose Route Start Last Admin Trade Name Freq PRN Reason Stop Dose Admin Acetaminophen 650 mg 04/13/21 19:49 Acetaminophen 325 Mg Tablet PO Q6H PRN Pain, Mild (Pain Scale 1-3) Aspirin 81 mg 04/14/21 09:00 04/14/21 09:17 Aspirin Enteric Coated 81 Mg Tablet. PO 81 mg DAILY MARTY Administration Bupropion HCl 150 mg 04/13/21 21:25 04/13/21 21:38 Bupropion Hcl Xl 150 Mg Tab.Er.24h PO Not Given BEDTIME MARTY Enoxaparin Sodium 40 mg 04/13/21 20:00 04/13/21 20:26 Enoxaparin Sodium 40 Mg/0.4 Ml Syringe SUBCUT 40 mg Q24H MARTY Administration Furosemide 40 mg 04/14/21 18:00 Furosemide 40 Mg/4 Ml Vial IVPUSH BID@0900,1800 [facility] Protocol Hydroxyzine HCl 50 mg 04/13/21 21:00 04/13/21 21:36 Hydroxyzine Hcl 50 Mg Tablet PO 50 mg BEDTIME MARTY Administration Magnesium Hydroxide 30 ml 04/13/21 19:49 Milk Of Magnesia 30 Ml Oral.Susp PO DAILY PRN Constipation Pharmacy Consult 1 each 04/13/21 19:52 Consult Rx Perform Med Rec MISCELLANE ONCE PRN Consult order Ropinirole HCl 1 mg 04/14/21 09:00 04/14/21 09:16 Ropinirole Hcl 1 Mg Tablet PO 1 mg DAILY MARTY Administration Ropinirole HCl 4 mg 04/13/21 21:25 04/13/21 21:38 Ropinirole Hcl 2 Mg Tablet PO Not Given BEDTIME MARTY Senna 17.2 mg 04/13/21 19:49 Sennosides 8.6 Mg Tablet PO BEDTIME PRN Constipation Sertraline HCl 50 mg 04/13/21 21:00 04/13/21 21:36 Sertraline Hcl 50 Mg Tablet PO 50 mg BEDTIME MARTY Administration Sodium Chloride 3 ml 04/14/21 00:00 04/14/21 09:17 0.9 % Sodium Chloride Flush 3 Ml Syringe IVFLUSH 3 ml QSHIFT MARTY Administration Tamsulosin HCl 0.4 mg 04/13/21 21:00 04/13/21 21:36 Tamsulosin Hcl 0.4 Mg Capsule PO 0.4 mg BEDTIME MARTY Administration Home Medications Medication Instructions Recorded Confirmed Last Taken Type aspirin 81 mg PO DAILY 04/13/21 04/13/21 04/13/21 History bupropion HCl 200 mg PO BEDTIME 04/13/21 04/13/21 04/12/21 History hydroxyzine HCl 50 mg PO BEDTIME 04/13/21 04/13/21 04/12/21 History ropinirole 1 mg PO DAILY 04/13/21 04/13/21 04/13/21 History ropinirole 4 mg PO BEDTIME 04/13/21 04/13/21 04/12/21 History sertraline 50 mg PO BEDTIME 04/13/21 04/13/21 04/12/21 History tamsulosin 0.4 mg PO BEDTIME 04/13/21 04/13/21 04/12/21 History torsemide 60 mg PO DAILY 04/13/21 04/13/21 04/13/21 History Physical Exam Vital Signs: Vital Signs: Last Vital Signs Temp 98.3 F 04/14/21 16:00 Pulse 53 04/14/21 16:00 Resp 16 04/14/21 16:00 BP 132/68 04/14/21 16:00 Pulse Ox 95 04/14/21 16:00 Body Mass Index 26.7 Const: General: cooperative, comfortable, no acute distress, well developed, alert and awake Nutritional Appearance: well nourished Orientation/consciousness: oriented to person, oriented to place and oriented to time Limitations: no limitations HENMT: Head: Yes normal to inspection, Yes normocephalic and Yes atraumatic Ears: hearing grossly normal bilaterally General nose exam: Normal external nose present Face and sinus: Yes normal facial exam Mouth: Normal oral and palatal mucosa present Eyes: General: appearance normal, both eyes and all related structures Visual Sullivan: normal visual sullivan by confrontation Alignment and Position: alignment normal Periorbital: periorbital findings normal Eyelids: Yes eyelids normal Conjunctivae: conjunctivae normal Sclerae: sclerae normal Corneas: corneas normal Pupils: Equal, round and reactive pupils present and Pupil accommodation reflex normal EOM: EOMs intact bilaterally Direct Ophthalmoscopy: normal light reflex Neck: Neck: Yes normal visual inspection, Yes full ROM and Yes no meningeal signs Thyroid: Thyroid normal Carotids: normal carotid upstroke and bounding pulses Chest: Chest palpation & inspection: normal inspection of the chest Resp: Effort & Inspection: normal respiratory effort Auscultation: clear to auscultation bilaterally Cardio: Rate: regular rate Rhythm: regular rhythm Heart sounds: S1 normal heart sound present and S2 normal heart sound present Peripheral pulses: Peripheral pulses 2+ throughout GI: Inspection: Yes normal to inspection Percussion: Yes normal to percussion Auscultation: normal bowel sounds Rectal Exam - Male: Yes deferred Back/Spine/Pelvis: Cervical Spine: normal cervical lordosis and cervical ROM normal Thoracic/Lumbar Spine: thoracic and lumbar spine normal to inspection Skin: General skin exam: no rashes or lesions noted Neuro: Other: Spastic right hemiplegia with upper extremity 2/5. Right lower extremity 4 minus/5, with edema and right-sided hyperreflexia. Extensor plantar response on the right General: oriented to person, oriented to place, oriented to time, gait normal, tone normal, moves all extremities, Normal light touch and pain sensation, no meningeal signs, no focal motor deficits, CN's II-XI intact bilaterally, normal sensation to monofilament and deep tendon reflexes 2+ bilaterally Cranial nerves: Yes CN's II-XII intact bilaterally, Yes Equal, round and reactive pupils present, Yes Bilaterally intact EOM present, Yes Nystagmus not present, Yes Normal facial strength present, Yes Midline tongue present, Yes Normal gag reflex present, Yes Symmetric palate elevation present, Yes Normal hearing present and Yes Ability to bilaterally rotate head present Cognition (Neuro): normal cognition Speech: Other speech findings present (Neuro) Motor exam (neuro): no tremor noted, no asterixis, Motor fasciculations not present and Motor abnormalities not present Sensory Exam: Bilaterally intact graphesthesia Deep tendon reflexes (DTR's): Right triceps reflex intensity grade: 2+, Left triceps reflex intensity grade: 3+, Rt Biceps (C5, C6): 2+, Left biceps reflex intensity grade: 2+, Right brachioradialis reflex intensity grade: 2+, Left brachioradialis reflex intensity grade: 2+, Right patellar reflex intensity grade: 2+, Left patellar reflex intensity grade: 2+, Right ankle reflex intensity grade: 2+ and Left ankle reflex intensity grade: 2+ Plantar Reflex Responses: downgoing: left and upgoing (positive Babinski): right Pupils: Normal pupillary reactivity/response: bilateral Extrem: General: Yes normal to inspection, Yes normal exam except as noted and Yes no pedal edema Psych: Appearance: grossly normal Mental Status: mental status grossly normal Speech and movement: Normal speech and movement present and Clear speech present Affect: normal affect Attitude: cooperative Thought process: Normal thought process present Results Labs CBC & Chem 7: 04/14/21 05:57 04/14/21 05:57 Labs: Short CBC 04/13/21 04/14/21 Range/Units 17:15 05:57 WBC 5.9 5.2 (4.8-10.8) X10*3/uL Hgb 11.0 L 9.6 L (14.0-18.0) g/dl Hct 34.0 L 29.2 L (42-52) % Plt Count 218 193 (160-400) X10*3/uL BMP 04/13/21 04/14/21 17:15 05:57 Sodium 141 141 Potassium 4.2 3.9 Chloride 107 110 H Carbon Dioxide 30 H 27 BUN 30 H 26 H Creatinine 1.23 1.04 Calcium 7.4 L 7.5 L Liver Function 04/13/21 Range/Units 17:15 Total Bilirubin 0.3 (0.0-1.0) mg/dL Direct Bilirubin < 0.2 (0.0-0.5) mg/dL AST 14 D (5-37) U/L ALT < 6 (0-40) U/L Alkaline Phosphatase 150 H (39-117) U/L Albumin 1.7 L (3.5-5.0) g/dL Urine 04/13/21 Range/Units 17:15 Urine Color DARK YELLOW Urine Appearance HAZY Urine pH 6.0 (5.0-8.0) Ur Specific [place] 1.025 (1.005-1.025) Urine Protein 3+ H (NEG-TRACE) MG/DL Urine Glucose (UA) NEG (NEG) MG/DL Assessment and Plan (1) Stroke: Qualifiers: CVA mechanism: unspecified Qualified Code(s): I63.9 - Cerebral infarction, unspecified Status: Acute 6 weeks status post left hemisphere ischemic infarct in the [place] radiate and basal ganglia. Spastic right hemiparesis. I would recommend starting physical therapy. He can be started on anticoagulation as there is no contraindication. Check previous workup to see if he had an echocardiogram bubble study. CTA Of head and neck in February 2021 did not reveal any major occlusive disease. (2) Nephrotic syndrome: Status: Acute Procedures Date of Service Date of Service: 04/14/21
[2021-04-14 19:24] VITALS: BP 121/66; PULSE 71; RESP 17; TEMP 36.7; O2SAT 95
[2021-04-14] MEDS: buPROPion HCl XL 150 MG TAB.ER.24H PO (20:31)
[2021-04-14] MEDS: hydrOXYzine HCL 50 MG TABLET PO (20:31)
[2021-04-14] MEDS: rOPINIRole HCL 2 MG TABLET 4 MG PO (20:31)
[2021-04-14] MEDS: Sertraline HCL 50 MG TABLET PO (20:32)
[2021-04-14] MEDS: Tamsulosin HCL 0.4 MG CAPSULE PO (20:32)
[2021-04-14] MEDS: Enoxaparin Sodium 40 MG/0.4 ML SYRINGE SUBCUT (20:32)
--- NOTE | 2021-04-14 21:13 | PM.CNNEP ---
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 Sincethen his edema R leg >> L and repeat doppler -for DVT. I saw himin office 04/13/21 and had him adm to hosp to get a better handle on edema diuretic resistatnt r/o DVT and initiate him on a.c. given hus hypercoag state from NSyndrome. His Wt is up15 lbs from his bsl WT despite taking usu dose of diuretic with signif scrotal edema. In February his prio CVA etiol unclear and Neuro has been reconsulted to see if any further w/u including ques of PFO may be culprit. Overall feeling better today. Review of Systems Review of Systems Constitutional : No Weight loss, No Fever, No Chills ENT/Mouth : No sore throat, No Rhinorrhea Eyes: No Eye Pain, No Swelling Cardiovascular : No Chest Pain, no palpitations Respiratory : No Cough, No Sputum, ++ shortness of breath Gastrointestinal : no Nausea, No Vomiting, No Diarrhea, No abdominal Pain, no black stools Genitourinary : No Dysuria, No Urinary Frequency Musculoskeletal : No joint pain, No Myalgias, No Joint Swelling Skin : No Skin Lesions, No rash Neuro : No Weakness, No Numbness, No Dizziness, No Headache Psych : No Anxiety/Panic, No Depression Heme/Lymph: No Bruising, No Lymphadenopathy Endocrine : No Polyuria, No Polydipsia All other systems reviewed and are negative Eyes: Reports no additional eye complaints Reports system reviewed and no additional complaints, except as documented and Reports Normal hearing present Cardiovascular: Reports no additional cardiovascular complaints Respiratory: Reports no additional respiratory complaints Gastrointestinal: Reports no additional gastrointestinal complaints Genitourinary: Reports no additional male genitourinary complaints Musculoskeletal: Reports no additional musculoskeletal complaints Skin/Breast: Reports system reviewed and no additional complaints, except as docu Reports as per HPI and Reports Normal hearing present Psychiatric: Reports as per HPI Endocrine: Reports no additional endocrine complaints Hematologic/Lymphatic: Reports no additional hematologic/lymphatic complaints Allergic/Immunologic: Reports no additional allergic/immunologic complaints PENDING SALE TO [facility] Past Medical History Medical History BPH (benign prostatic hyperplasia) COPD (chronic obstructive pulmonary disease) Depression Dyspnea on exertion Facial fracture Nephrotic syndrome Pleural effusion on right Pulmonary nodule Restless leg Restrictive lung disease Sjogren's syndrome Surgical History Surgical History H/O facial fracture repair H/O left knee surgery H/O thumb surgery Social History Social History Household Members: Spouse Housing: Apartment Do you presently have visiting nurse or other home services: No Patient Tobacco Use Status: Never used Tobacco Years Smoked: 30 years of smoking Use of substances other than those prescribed or required for medical reasons: Yes Substance Use Type: Marijuana Substance Use Frequency: Occasionally Last Used Substance: Unknown Currently Displaying Signs/Symptoms of Drug Intoxication Withdrawal: No Any prior treatment program specific to substance use: No Have you been hit, kicked, punched, or otherwise hurt by someone within the past year? If so, by whom?: No Do you feel safe in your current relationship?: Yes Is there a partner from a previous relationship who is making you feel unsafe now?: No Are you made to feel afraid or neglected: No Advance Directives: Yes Advance Directives on File: Yes Advance Directives Date on File: 02/19/21 Do you have thoughts of harming others: None Do you have a plan to hurt others: No Plan Recently lost weight without trying: No Nutrition Risks: No Nutritional Risk Poor oral hygiene: No service: Yes Current occupational status: employed Meds Allergies Allergy/AdvReac Type Severity Reaction Status Date / Time Penicillins [PENICILLINS] Allergy Unknown UNKNOWN Verified 04/13/21 19:23 atorvastatin [From Lipitor] AdvReac Unknown Vomiting Verified 04/13/21 19:23 Active Medications: Current Medications Generic Name Dose Route Start Last Admin Trade Name Alize PRN Reason Stop Dose Admin Acetaminophen 650 mg 04/13/21 19:49 Acetaminophen 325 Mg Tablet PO Q6H PRN Pain, Mild (Pain Scale 1-3) Aspirin 81 mg 04/14/21 09:00 04/14/21 09:17 Aspirin Enteric Coated 81 Mg Tablet.Dr PO 81 mg DAILY MARTY Administration Bupropion HCl 150 mg 04/13/21 21:25 04/14/21 20:31 Bupropion Hcl Xl 150 Mg Tab.Er.24h PO 150 mg BEDTIME MARTY Administration Enoxaparin Sodium 40 mg 04/13/21 20:00 04/14/21 20:32 Enoxaparin Sodium 40 Mg/0.4 Ml Syringe SUBCUT 40 mg Q24H MARTY Administration Furosemide 40 mg 04/14/21 18:00 04/14/21 17:36 Furosemide 40 Mg/4 Ml Vial IVPUSH 40 mg BID@0900,1800 MARTY Administration Protocol Hydroxyzine HCl 50 mg 04/13/21 21:00 04/14/21 20:31 Hydroxyzine Hcl 50 Mg Tablet PO 50 mg BEDTIME MATRY Administration Magnesium Hydroxide 30 ml 04/13/21 19:49 Milk Of Magnesia 30 Ml Oral.Susp PO DAILY PRN Constipation Pharmacy Consult 1 each 04/13/21 19:52 Consult Rx Perform Med Rec MISCELLANE ONCE PRN Consult order Ropinirole HCl 1 mg 04/14/21 09:00 04/14/21 09:16 Ropinirole Hcl 1 Mg Tablet PO 1 mg DAILY MARTY Administration Ropinirole HCl 4 mg 04/13/21 21:25 04/14/21 20:31 Ropinirole Hcl 2 Mg Tablet PO 4 mg BEDTIME MARTY Administration Senna 17.2 mg 04/13/21 19:49 Sennosides 8.6 Mg Tablet PO BEDTIME PRN Constipation Sertraline HCl 50 mg 04/13/21 21:00 04/14/21 20:32 Sertraline Hcl 50 Mg Tablet PO 50 mg BEDTIME MARTY Administration Sodium Chloride 3 ml 04/14/21 00:00 04/14/21 20:32 0.9 % Sodium Chloride Flush 3 Ml Syringe IVFLUSH 3 ml QSHIFT MARTY Administration Tamsulosin HCl 0.4 mg 04/13/21 21:00 04/14/21 20:32 Tamsulosin Hcl 0.4 Mg Capsule PO 0.4 mg BEDTIME MARTY Administration Home Medications Medication Instructions Recorded Confirmed Last Taken Type aspirin 81 mg PO DAILY 04/13/21 04/13/21 04/13/21 History bupropion HCl 200 mg PO BEDTIME 04/13/21 04/13/21 04/12/21 History hydroxyzine HCl 50 mg PO BEDTIME 04/13/21 04/13/21 04/12/21 History ropinirole 1 mg PO DAILY 04/13/21 04/13/21 04/13/21 History ropinirole 4 mg PO BEDTIME 04/13/21 04/13/21 04/12/21 History sertraline 50 mg PO BEDTIME 04/13/21 04/13/21 04/12/21 History tamsulosin 0.4 mg PO BEDTIME 04/13/21 04/13/21 04/12/21 History torsemide 60 mg PO DAILY 04/13/21 04/13/21 04/13/21 History Physical Exam Vital Signs: Last Vital Signs Temp 98.1 F 04/14/21 19:24 Pulse 71 04/14/21 19:24 Resp 17 04/14/21 19:24 BP 121/66 04/14/21 19:24 Pulse Ox 95 04/14/21 19:24 Body Mass Index 26.7 Const Other: Constitutional : Alert, oriented, not in distress Neck : Normal inspection, Supple Cardiovascular : RRR, S1 S2, +3 right lower extremity edema Respiratory : Good bilateral air entry, no crackles, wheezes or rhonchi Gastrointestinal: soft, lax, Normal bowel sounds, Non tender Skin : Warm/Dry, No rash Neurological : Alert & oriented x3, right hemiparesis General: cooperative, comfortable, no acute distress, well developed, alert and awake Nutritional Appearance: well nourished Orientation/consciousness: oriented to person, oriented to place and oriented to time Limitations: no limitations [facility] Head: Yes normal to inspection, Yes normocephalic and Yes atraumatic Ears: hearing grossly normal bilaterally General nose exam: Normal external nose present Face and sinus: Yes normal facial exam Mouth: Normal oral and palatal mucosa present Eyes General: appearance normal, both eyes and all related structures Visual Gottlieb: normal visual gottlieb by confrontation Alignment and Position: alignment normal Periorbital: periorbital findings normal Eyelids: Yes eyelids normal Conjunctivae: conjunctivae normal Sclerae: sclerae normal Corneas: corneas normal Pupils: Equal, round and reactive pupils present and Pupil accommodation reflex normal EOM: EOMs intact bilaterally Direct Ophthalmoscopy: normal light reflex Neck Neck: Yes normal visual inspection, Yes full ROM and Yes no meningeal signs Thyroid: Thyroid normal Carotids: normal carotid upstroke and bounding pulses Chest Chest palpation & inspection: normal inspection of the chest Resp Effort & Inspection: normal respiratory effort Auscultation: clear to auscultation bilaterally Cardio Rate: regular rate Rhythm: regular rhythm Heart sounds: S1 normal heart sound present and S2 normal heart sound present Peripheral pulses: Peripheral pulses 2+ throughout GI Inspection: Yes normal to inspection Percussion: Yes normal to percussion Auscultation: normal bowel sounds Rectal Exam - Male: Yes deferred Back/Spine/Pelvis Cervical Spine: normal cervical lordosis and cervical ROM normal Thoracic/Lumbar Spine: thoracic and lumbar spine normal to inspection Skin General skin exam: no rashes or lesions noted Neuro Other: Spastic right hemiplegia with upper extremity 2/5. Right lower extremity 4 minus/5, with edema and right-sided hyperreflexia. Extensor plantar response on the right General: oriented to person, oriented to place, oriented to time, gait normal, tone normal, moves all extremities, Normal light touch and pain sensation, no meningeal signs, no focal motor deficits, CN's II-XI intact bilaterally, normal sensation to monofilament and deep tendon reflexes 2+ bilaterally Cranial nerves: Yes CN's II-XII intact bilaterally, Yes Equal, round and reactive pupils present, Yes Bilaterally intact EOM present, Yes Nystagmus not present, Yes Normal facial strength present, Yes Midline tongue present, Yes Normal gag reflex present, Yes Symmetric palate elevation present, Yes Normal hearing present and Yes Ability to bilaterally rotate head present Cognition (Neuro): normal cognition Speech: Other speech findings present (Neuro) Motor exam (neuro): no tremor noted, no asterixis, Motor fasciculations not present and Motor abnormalities not present Sensory Exam: Bilaterally intact graphesthesia Deep tendon reflexes (DTR's): Right triceps reflex intensity grade: 2+, Left triceps reflex intensity grade: 3+, Rt Biceps (C5, C6): 2+, Left biceps reflex intensity grade: 2+, Right brachioradialis reflex intensity grade: 2+, Left brachioradialis reflex intensity grade: 2+, Right patellar reflex intensity grade: 2+, Left patellar reflex intensity grade: 2+, Right ankle reflex intensity grade: 2+ and Left ankle reflex intensity grade: 2+ Plantar Reflex Responses: downgoing: left and upgoing (positive Babinski): right Pupils: Normal pupillary reactivity/response: bilateral Extrem General: Yes normal to inspection, Yes normal exam except as noted and Yes no pedal edema Psych Appearance: grossly normal Mental Status: mental status grossly normal Speech and movement: Normal speech and movement present and Clear speech present Affect: normal affect Attitude: cooperative Thought process: Normal thought process present Results Lab Results Result Diagrams: 04/14/21 05:57 04/14/21 05:57 Lab results: Chemistry 04/13/21 04/14/21 17:15 05:57 Sodium 141 141 Potassium 4.2 3.9 Carbon Dioxide 30 H 27 BUN 30 H 26 H Creatinine 1.23 1.04 Calcium 7.4 L 7.5 L Phosphorus 4.6 H Albumin 1.7 L Hematology 04/13/21 04/14/21 17:15 05:57 WBC 5.9 5.2 Hgb 11.0 L 9.6 L Plt Count 218 193 Urinalysis 04/13/21 17:15 Urine Color DARK YELLOW Urine Appearance HAZY Urine pH 6.0 Ur Specific [place] 1.025 Urine Protein 3+ H Urine Glucose (UA) NEG Urine Ketones NEG Urine Blood 2+ H Urine Nitrite NEG Ur Leukocyte Esterase NEG Urine RBC 10-14 H Urine WBC 1-4 Ur Squamous Epith Cells NONE Urine Studies 04/13/21 17:15 Urine Creatinine 307.75 Assessment and Plan (1) Stroke: Qualifiers: CVA mechanism: unspecified Qualified Code(s): I63.9 - Cerebral infarction, unspecified Status: Acute (2) Nephrotic syndrome: Status: Acute 61 y/o wM H/O MGN PLA2R- presiumed d/t /Sjorgrens RECURRENT NSYNDROME WITH HYPERCOAG STATE AND RISK FOR THROBOEMBOLIC EVENT AND RECENT CVA (FEBRUARY 2021) 1. NSyndrome: recurrent flare MGN and needs additional IS treatment and options include retrial of rituxin as he responded in the past and cocnern for non-compliance with cytoxan/pred regiement Other Tx options could include ACTHAR or Tacrolimus/pred Unclear why he is not on his ARB andwill r/s for its antiprot effect 2. Hypercoag state: Alb remains < 2.5andnow < 2.0 in setting of MGN assoc NSYn and recent CVA all supports a.c.; literature suggest coumadin vs lovenox as hsitorical prefferred Tx options BUT his h/o poor complicane would favor DOCA ( Eliquis) Heme is going to see PT and render an opinion 3. TBFOL/edema: cont iv lasix and diuresis; needsclose outptmonitoring with adjsutment of diurteics/WT monitoring REC: cont lasix; start full a.c.; start losartan 25 qd; will look to resatrt rituxin 1gm IV in next several days but may need to switch toalternative IS depending on response will follow david with team Procedures Date of Service Date of Service: 04/14/21
[2021-04-14 23:21] VITALS: BP 127/88; PULSE 72; RESP 17; TEMP 36.8; O2SAT 92
[2021-04-15 04:00] VITALS: BP 128/62; PULSE 71; RESP 17; TEMP 36.9; O2SAT 93
[2021-04-15 05:56] LABS: MANUAL DIFF FLAG NO
[2021-04-15 06:06] LABS: B Type Natriuretic Peptide 106 pg/mL (<100)
[2021-04-15 06:10] LABS: Basophils Percent Auto 0.4 % (0-2); Eosinophils Absolute Auto 0.4 X10*3/uL (0.0-0.4); Eosinophils Percent Auto 7.9 % (0-4); Hematocrit 29.7 % (42-52); Hemoglobin 9.9 g/dl (14.0-18.0); Imm Gran Abs Auto 0.01 X10*3/uL (0.00-0.03); Imm Gran Pct Auto 0.2 % (0.0-0.4); Lymphocytes Absolute Auto 1.4 X10*3/uL (1.2-4.9); Lymphocytes Percent Auto 27.2 % (20-40); Mean Corpuscular HGB Conc 33.3 g/dl (31.0-36.0); Mean Corpuscular Hemoglobin 28.3 pg (27.0-33.0); Mean Corpuscular Volume 84.9 fL (80-98); Mean Platelet Volume 9.4 fL (9.4-12.4); Monocytes Absolute Auto 0.5 X10*3/uL (0.1-1.2); Monocytes Percent Auto 9.2 % (2-11); Neutrophils Absolute Auto 2.9 X10*3/uL (2.0-8.3); Neutrophils Percent Auto 55.1 % (45-73); Platelet Count 197 X10*3/uL (160-400); Red Cell Distribution Width 13.7 % (11.0-16.0); White Blood Count 5.2 X10*3/uL (4.8-10.8)
[2021-04-15 08:00] VITALS: BP 142/76; PULSE 68; RESP 20; TEMP 36.4; O2SAT 95
[2021-04-15] MEDS: Furosemide 40 MG/4 ML VIAL IVPUSH (08:24)
[2021-04-15] MEDS: Aspirin Enteric Coated 81 MG TABLET.DR PO (08:24)
[2021-04-15] MEDS: rOPINIRole HCL 1 MG TABLET PO (08:24)
[2021-04-15] MEDS: 0.9 % Sodium Chloride Flush 3 ML SYRINGE IVFLUSH (08:25)
[2021-04-15 08:55] LABS: Anion Gap 7 (12-20); Blood Urea Nitrogen 26 mg/dL (9-16); Calcium 7.4 mg/dL (8.4-10.2); Carbon Dioxide 29 mmol/L (22-29); Chloride 109 mmol/L (96-108); Creatinine Clr Calc Pharmacy 77.6; Estimated Glomerular Filt Rate > 60; Glucose Random 88 mg/dL (60-115); Potassium 4.1 mmol/L (3.3-5.1); Sodium 141 mmol/L (135-145)
[2021-04-15 09:27] LABS: ~Hepatitis B Surface Antibody NONREACTIVE (Nonreactive)
[2021-04-15 10:05] LABS: HBc Num1 0.07 S/CO (0.00-0.79); HBsAGNum1 0.21 S/CO (0.00-0.99); Hepatitis B Core Antibody Nonreactive (Nonreactive); Hepatitis B Surface Antigen Negative (Negative)
[2021-04-15] MEDS: Apixaban 5 MG TABLET PO (10:40)
[2021-04-15 11:39] VITALS: BP 147/82; PULSE 64; RESP 19; TEMP 36.3; O2SAT 96
--- NOTE | 2021-04-15 13:09 | P.DS_ITS ---
DS: Providers Provider Date of Service: 04/15/21 Date of admission: 04/13/21 19:49 Primary care physician: Finn Ray Consults: 04/13/21 19:49 Consult to Hematology / Oncology Routine Consulting Provider: Johan Bassett Reason for consultation: pt with hx nephrotic syndrome; ?hypercoagulable state Consult to Nephrology Routine Consulting Provider: Scott Booker Reason for consultation: Nephrotic syndrome; RLE swelling Consult to Neurology Routine Consulting Provider: [facility] Reason for consultation: hx CVA; pt with hx Nephrotic syndrome; ?need for anticoagulation DS: Diagnosis Discharge Diagnosis (1) Stroke: Status: Acute (2) Nephrotic syndrome: Status: Acute (3) Membranous glomerulonephritis: Status: Acute (4) Right leg swelling: Status: Acute DS: Medications Discharge Medications Home Medications: Home Medications Medication Instructions Recorded Confirmed bupropion HCl 200 mg PO BEDTIME 04/13/21 04/13/21 hydroxyzine HCl 50 mg PO BEDTIME 04/13/21 04/13/21 ropinirole 1 mg PO DAILY 04/13/21 04/13/21 ropinirole 4 mg PO BEDTIME 04/13/21 04/13/21 sertraline 50 mg PO BEDTIME 04/13/21 04/13/21 tamsulosin 0.4 mg PO BEDTIME 04/13/21 04/13/21 torsemide 60 mg PO DAILY 04/13/21 04/13/21 Previous Rx's Medication Instructions Recorded apixaban [Eliquis] 5 mg PO BID #60 tab 04/15/21 DS: Summary Hospital Course Hospital Course: patient was admitted for edema from 3rd spacing from nephrotic syndrome. he was diuresed with IV lasix, duplex was negative for DVT. he was seen by nephrology who recommended eliquis and outpatinet follow up for rituxin. patient is feeling well, edema improved (still with some RLE edema), will be discharged home. Time Spent with Patient Time attestation: Total time spent providing and/or coordinating discharge services: Discharge coordination time: Greater than 30 minutes Quality: Stroke Does the patient have a stroke diagnosis?: No Physical Exam Vital Signs: Vital Signs: Last Vital Signs Temp 97.4 F 04/15/21 11:39 Pulse 64 04/15/21 11:39 Resp 19 04/15/21 11:39 BP 147/82 H 04/15/21 11:39 Pulse Ox 96 04/15/21 11:39 Body Mass Index 26.7 General: AO X 3, no acute distress Resp: CTA bilateral CVS: S1,S2,RRR GI: soft, non tender, non distended Neuro: right hemiparesis Psych: appropriate affect RLE edema DS: Data Data Completed and Pending Labs on day of discharge: Laboratory Results - last 24 hr 04/15/21 04/15/21 04/15/21 04:53 04:53 04:53 WBC RBC Hgb Hct MCV MCH MCHC RDW Plt Count MPV Immature Gran % (Auto) Neut % (Auto) Lymph % (Auto) [place] % (Auto) Eos % (Auto) Baso % (Auto) Lymph # (Auto) [place] # (Auto) Eos # (Auto) Baso # (Auto) Abs Immat Gran (auto) Absolute Neuts (auto) Absolute Nucleated RBC Nucleated RBC % (auto) Sodium 141 Potassium 4.1 Chloride 109 H Carbon Dioxide 29 Anion Gap 7 L BUN 26 H Creatinine 1.11 Estim Creat Clear Calc 77.6 Estimated GFR > 60 Random Glucose 88 Calcium 7.4 L B-Natriuretic Peptide 106 H Hep Bs Antigen Negative Hep Bs Antibody NONREACTIVE Hep B Core Total Ab Nonreactive 04/15/21 05:00 WBC 5.2 RBC 3.50 L Hgb 9.9 L Hct 29.7 L MCV 84.9 MCH 28.3 MCHC 33.3 RDW 13.7 Plt Count 197 MPV 9.4 Immature Gran % (Auto) 0.2 Neut % (Auto) 55.1 Lymph % (Auto) 27.2 [place] % (Auto) 9.2 Eos % (Auto) 7.9 H Baso % (Auto) 0.4 Lymph # (Auto) 1.4 [place] # (Auto) 0.5 Eos # (Auto) 0.4 Baso # (Auto) 0.0 Abs Immat Gran (auto) 0.01 Absolute Neuts (auto) 2.9 Absolute Nucleated RBC 0.000 Nucleated RBC % (auto) 0.0 Sodium Potassium Chloride Carbon Dioxide Anion Gap BUN Creatinine Estim Creat Clear Calc Estimated GFR Random Glucose Calcium B-Natriuretic Peptide Hep Bs Antigen Hep Bs Antibody Hep B Core Total Ab Discharge Plan Discharge Patient Disposition: Home, Self-Care Discharge Diagnosis: nephrotic syndrome Referrals: Finn Ray [Primary Care Provider] - 1 Week Scott Booker MD [Physician] - 1 Week Discharge Medications: New Eliquis 5 mg Tablet 5 mg PO BID Qty: 60 RF: 0 Continued ropinirole 1 mg tablet 1 mg PO DAILY RF: 0 sertraline 50 mg tablet 50 mg PO BEDTIME RF: 0 ropinirole 4 mg tablet 4 mg PO BEDTIME RF: 0 torsemide 20 mg Tablet 60 mg PO DAILY RF: 0 hydroxyzine HCl 50 mg Tablet 50 mg PO BEDTIME RF: 0 tamsulosin 0.4 mg Capsule 0.4 mg PO BEDTIME RF: 0 bupropion HCl 200 mg Tablet Sustained-Release 12 Hr 200 mg PO BEDTIME RF: 0 Discontinued aspirin 81 mg Tablet,Delayed Release (Dr/Ec) 81 mg PO DAILY RF: 0 Discharge Orders: Discharge Order (Routine); Ordered 04/15/21 Ordered By: Luis Wigigns Diet: advance to usual diet Activity on Discharge: As tolerated Stand Alone Forms: Patient Portal Discharge page Care Plan Goals: recovery Health Concerns: neprhotic syndrome Plan of Treatment: start eliquis, follow up with nephrology for rituximab, monitor weights to determine when to increase torsemide dose Assessment: see above Discharge Date/Time: 04/15/21 14:10
--- NOTE | 2021-04-15 13:31 | MHC.CM.PN ---
PT DISCHARGING TODAY HOME SELF-CARE, DUE TO PT NEW TO [facility] PT GIVEN [facility] FREE CARD, PT'S SPOUSE FOR TRANSPORT.
== END 2021-04-15 14:10 | disposition home or self-care (01) | DRG 699 ==
LOC: HO.ED 21:52 → HO.IMC 21:57
PROVIDERS: Internal Medicine Nephrology; Student in an Organized Health Care Education/Training Program; Admitting Provider Hospitalist; Emergency Provider Internal Medicine; PCP Internal Medicine; Visit Provider Internal Medicine
DX: N04.2 Nephrotic syndrome with diffuse membranous glomerulonephritis (principal); I69.951 Hemiplegia and hemiparesis following unspecified cerebrovascular disease affecting right dominant side; G25.81 Restless legs syndrome; Z20.822 Contact with and (suspected) exposure to COVID-19; Z88.0 Allergy status to penicillin; Z79.01 Long term (current) use of anticoagulants; Z79.899 Other long term (current) drug therapy
CPT/HCPCS: 36415; 71045; 80048; 80076; 81001; 83735; 83880; 84100; 84156; 85025; 85610; 86704; 86706; 87340; 87635; 93971; 96374; 99285; J1650; J1940; P9047

== ENCOUNTER 2021-04-27 12:53 | Outpatient (REF) | payer OTHER, SELFPAY ==
--- NOTE | ~2021-04-27 | MR_ITS ---
EXAMINATION: MR ANGIOGRAPHY BRAIN WITHOUT CONTRAST CLINICAL INFORMATION: Evaluate intracranial venous system for evidence of venous sinus stenosis. COMPARISON: CT scan of the head 02/18/2021. CT angiogram of the head and neck 02/19/2020. TECHNIQUE: A 3-dimensional [id number]-[id number] MR angiogram of the head was obtained and a two-dimensional [id number] MR venogram of the head was obtained. MIP reconstructions were generated in multiple orientations at the acquisition workstation. Multiple three-dimensional surface rendered images and maximum intensity projection images were generated on a dedicated 3-D lab workstation. Arterial stenoses are measured in accordance with NASCET criteria or similar method if applicable. FINDINGS: Intracranial internal carotid arteries are normal. The intradural vertebral artery segments and basilar artery are normal. Anterior, middle, and posterior cerebral complexes are normal. No high-grade stenosis or proximal occlusion is visualized within the intracranial vessels. The internal cerebral veins, vein of Jeancarlos, and straight sinus are patent. The superior sagittal sinus and torcula are patent. There is an arachnoid granulation located within the left transverse sinus. The transverse sinuses, sigmoid sinuses, and visualized upper internal jugular veins are otherwise widely patent. Although the brain parenchyma is not well assessed on this examination there appears to be an age indeterminant left striatocapsular infarct that is new when compared to the brain MRI from 02/18/2021. MR/MR angio head wo con IMPRESSION: Although the brain parenchyma is not well depicted on this examination due to the acquisition technique there appears to be an age indeterminant left striatocapsular infarct that is new when compared to the brain MRI from 02/18/2021. Otherwise unremarkable MR angiogram and MR venogram of the head.
== END 2021-04-27 12:54 | disposition home or self-care (01) ==
LOC: HO.MRI 12:53
PROVIDERS: PCP Internal Medicine; Visit Provider Psychiatry & Neurology Neurology
DX: I63.9 Cerebral infarction, unspecified (principal)
CPT/HCPCS: 70544

== ENCOUNTER → 2021-07-30 13:40 | Outpatient (BNVA) | payer OTHER, SELFPAY | PROVIDERS: PCP Internal Medicine; Visit Provider Internal Medicine | DX: J98.4 Other disorders of lung (principal); N04.9 Nephrotic syndrome with unspecified morphologic changes; R91.1 Solitary pulmonary nodule; R06.00 Dyspnea, unspecified | CPT/HCPCS: 99212 ==

== ENCOUNTER 2021-12-03 10:41 | Outpatient (REF) | payer OTHER, SELFPAY ==
[2021-12-03 11:36] LABS: Appearance Urine CLEAR; Color Urine YELLOW; Glucose Urine UA NEG (NEG); Leukocyte Esterase Urine NEG (NEG); Nitrite Urine NEG (NEG); Specific Gravity - Urine 1.015 (1.005-1.025); Urine Blood 2+ (NEG); Urine Ketones NEG (NEG); Urine Protein 2+ MG/DL (NEG-TRACE)
[2021-12-03 12:02] LABS: Bacteria Urine 2+ /LPF; RBC Urine 0-2 /HPF (0); WBC Urine 0 /HPF (0-4)
[2021-12-03 12:05] LABS: Anion Gap 8 (12-20); Blood Urea Nitrogen 20 mg/dL (9-16); Calcium 8.1 mg/dL (8.4-10.2); Carbon Dioxide 30 mmol/L (22-29); Chloride 102 mmol/L (96-108); Estimated Glomerular Filt Rate > 60; Potassium 4.5 mmol/L (3.3-5.1); Sodium 135 mmol/L (135-145)
[2021-12-03 12:11] LABS: Protein/Creatinine Ratio, Ur 2.59 (<0.2); Total Protein Urine Random 92 mg/dL (<12)
[2021-12-03 12:24] LABS: Microalbum/Creatinine Ratio Ur 1721.1 ug/mg cr
== END 2021-12-03 10:42 | disposition home or self-care (01) ==
LOC: HO.LAB 10:41
PROVIDERS: Visit Provider Internal Medicine Nephrology
DX: N04.9 Nephrotic syndrome with unspecified morphologic changes (principal); N04.2 Nephrotic syndrome with diffuse membranous glomerulonephritis; N05.9 Unspecified nephritic syndrome with unspecified morphologic changes; E78.00 Pure hypercholesterolemia, unspecified
CPT/HCPCS: 36415; 80051; 81001; 82043; 82310; 82565; 84156; 84520

== ENCOUNTER 2021-12-07 13:12 | Outpatient (REF) | payer OTHER, SELFPAY ==
--- NOTE | ~2021-12-07 | CT_ITS ---
EXAMINATION: CT CHEST WITHOUT CONTRAST CLINICAL INFORMATION: Solitary pulmonary nodule. COMPARISON: CT chest without contrast 01/25/2020. TECHNIQUE: Multidetector volumetric CT imaging of the chest was done. Axial MIP volume rendering provided. Sagittal and coronal reformatted images were obtained. This CT examination was performed using dose optimization techniques as appropriate, variously including the following: *Automated exposure control *Adjustment of mA and/or kV according to patient size (this includes techniques or standardized protocols for targeted exams where dose is matched to indication/reason for exam; i.e. extremities or head) *Use of iterative reconstruction technique DLP: 228 mGy-cm FINDINGS: ELECTROCARDIOGRAPH REPAIRER: Well-inflated lungs with moderate opacity left lung base likely loculated effusion. LUNGS: There is centrilobular emphysema. There is bibasilar dependent atelectasis and/or minimal infiltrates secondary to large left and moderate right pleural effusion. No pulmonary nodule, mass or ground-glass attenuation seen. MEDIASTINUM: The heart size and the great vessels are normal caliber. There are coronary artery calcifications. Central trachea and the bronchi are widely patent. The thyroid lobes are symmetrical and normal. There are small shotty pretracheal and precarinal lymph nodes. The largest pretracheal lymph node measures 6 mm in short axis axial image 24/4. PLEURA: There is moderate left and small moderate right pleural effusions. AXILLA: There are small shotty bilateral axillary lymph nodes. The chest wall is unremarkable. UPPER ABDOMEN: Visualized liver, spleen, pancreas and bilateral adrenal glands are unremarkable. OSSEOUS STRUCTURES: No lytic or sclerotic process seen. There is moderate ventral spondylosis upper mid and lower dorsal spine. CT/CT chest wo con IMPRESSION: Moderate left and [id number] right pleural effusions with underlying compressive atelectasis. Infiltrate is considered less likely but cannot be entirely excluded. No visible pulmonary nodule, mass seen. There are small reactive lymph nodes in the mediastinum. Fleischner guidelines were followed.
== END 2021-12-07 13:13 | disposition home or self-care (01) ==
LOC: HO.CT 13:12
PROVIDERS: PCP Radiology Diagnostic Radiology; Visit Provider Internal Medicine
DX: R91.1 Solitary pulmonary nodule (principal)
CPT/HCPCS: 71250

== ENCOUNTER → 2022-01-25 12:48 | Outpatient (BNVA) | payer OTHER, SELFPAY | PROVIDERS: PCP Radiology Diagnostic Radiology; Visit Provider Internal Medicine | DX: J90 Pleural effusion, not elsewhere classified (principal); J98.4 Other disorders of lung; N05.2 Unspecified nephritic syndrome with diffuse membranous glomerulonephritis; N04.9 Nephrotic syndrome with unspecified morphologic changes | CPT/HCPCS: 99212 ==

== ENCOUNTER 2022-04-02 09:49 | Outpatient (REF) | payer OTHER, SELFPAY ==
[2022-04-02 10:06] LABS: MANUAL DIFF FLAG NO
[2022-04-02 10:27] LABS: Basophils Percent Auto 0.3 % (0-2); Eosinophils Absolute Auto 0.3 X10*3/uL (0.0-0.4); Eosinophils Percent Auto 4.8 % (0-4); Hematocrit 33.6 % (42.0-52.0); Hemoglobin 10.8 g/dl (14.0-18.0); Imm Gran Abs Auto 0.02 X10*3/uL (0.00-0.03); Imm Gran Pct Auto 0.3 % (0.0-0.4); Lymphocytes Absolute Auto 1.1 X10*3/uL (1.2-4.9); Lymphocytes Percent Auto 17.1 % (20-40); Mean Corpuscular HGB Conc 32.1 g/dl (31.0-36.0); Mean Corpuscular Hemoglobin 25.4 pg (27.0-33.0); Mean Corpuscular Volume 78.9 fL (80.0-98.0); Monocytes Absolute Auto 0.8 X10*3/uL (0.1-1.2); Monocytes Percent Auto 11.8 % (2-11); Neutrophils Absolute Auto 4.4 x10*3/uL (2.0-8.3); Neutrophils Percent Auto 65.7 % (45-73); Platelet Count 269 X10*3/uL (160-400); Red Blood Count 4.26 X10*6/uL (4.60-5.80); Red Cell Distribution Width 15.6 % (11.0-16.0); White Blood Count 6.6 X10*3/uL (4.8-10.8)
[2022-04-02 10:50] LABS: Albumin Level 2.2 g/dL (3.5-5.0); Anion Gap 9 (12-20); Blood Urea Nitrogen 21 mg/dL (9-16); Calcium 8.1 mg/dL (8.4-10.2); Carbon Dioxide 28 mmol/L (22-29); Chloride 104 mmol/L (96-108); Estimated Glomerular Filt Rate > 60; Phosphorus 3.7 mg/dL (2.7-4.5); Potassium 4.4 mmol/L (3.3-5.1); Sodium 137 mmol/L (135-145)
[2022-04-02 11:11] LABS: Vitamin D 25-OH Total 30.2 ng/mL (>30)
[2022-04-02 13:51] LABS: Appearance Urine CLEAR; Color Urine YELLOW; Glucose Urine UA NEG (NEG); Leukocyte Esterase Urine NEG (NEG); Nitrite Urine NEG (NEG); Specific Gravity - Urine 1.025 (1.005-1.025); Urine Blood 2+ (NEG); Urine Ketones NEG (NEG); Urine Protein 3+ MG/DL (NEG-TRACE)
[2022-04-02 13:59] LABS: WBC Urine 0-2 /HPF (0-4)
[2022-04-02 14:00] LABS: Mucus Urine TRACE /LPF
[2022-04-02 14:10] LABS: Creatinine Urine 175.23 mg/dL
[2022-04-02 14:22] LABS: Protein/Creatinine Ratio, Ur 4.42 (<0.2); Total Protein Urine Random 775 mg/dL (<12)
[2022-04-06 13:41] LABS: Calcium (PTHI) 8.1 mg/dL (8.6-10.3); PTHI 79 pg/mL (16-77)
== END 2022-04-02 09:50 | disposition home or self-care (01) ==
LOC: HO.LAB 09:49
PROVIDERS: PCP Internal Medicine; Visit Provider Internal Medicine Nephrology
DX: N03.2 Chronic nephritic syndrome with diffuse membranous glomerulonephritis (principal); M35.03 Sjogren syndrome with myopathy
CPT/HCPCS: 36415; 80051; 81001; 82040; 82043; 82306; 82310; 82565; 83735; 83970; 84100; 84156; 84520; 85025; 87086

== ENCOUNTER → 2022-07-26 12:37 | Outpatient (BNVA) | payer OTHER, SELFPAY | PROVIDERS: PCP Internal Medicine; Visit Provider Internal Medicine | DX: N05.2 Unspecified nephritic syndrome with diffuse membranous glomerulonephritis (principal); N04.9 Nephrotic syndrome with unspecified morphologic changes; J98.4 Other disorders of lung; J90 Pleural effusion, not elsewhere classified; R06.00 Dyspnea, unspecified | CPT/HCPCS: 99212 ==

== ENCOUNTER → 2022-07-27 13:09 | Outpatient (BNVA) | payer OTHER, SELFPAY | PROVIDERS: PCP Internal Medicine; Visit Provider Nurse Practitioner | DX: Z01.818 Encounter for other preprocedural examination (principal); D12.6 Benign neoplasm of colon, unspecified; J98.4 Other disorders of lung; N04.9 Nephrotic syndrome with unspecified morphologic changes; I69.351 Hemiplegia and hemiparesis following cerebral infarction affecting right dominant side | CPT/HCPCS: 99202 ==

== ENCOUNTER 2022-12-31 10:33 | Outpatient (REF) | payer OTHER, SELFPAY ==
[2022-12-31 10:50] LABS: MANUAL DIFF FLAG NO
[2022-12-31 11:48] LABS: Basophils Percent Auto 0.4 % (0-2); Eosinophils Absolute Auto 0.7 X10*3/uL (0.0-0.4); Eosinophils Percent Auto 9.9 % (0-4); Hematocrit 33.2 % (42.0-52.0); Hemoglobin 10.7 g/dl (14.0-18.0); Imm Gran Abs Auto 0.02 X10*3/uL (0.00-0.03); Imm Gran Pct Auto 0.3 % (0.0-0.4); Lymphocytes Absolute Auto 1.2 X10*3/uL (1.2-4.9); Mean Corpuscular HGB Conc 32.2 g/dl (31.0-36.0); Mean Corpuscular Hemoglobin 25.4 pg (27.0-33.0); Mean Corpuscular Volume 78.7 fL (80.0-98.0); Mean Platelet Volume 9.6 fL (9.4-12.4); Monocytes Absolute Auto 0.7 X10*3/uL (0.1-1.2); Monocytes Percent Auto 10.2 % (2-11); Neutrophils Absolute Auto 4.5 x10*3/uL (2.0-8.3); Neutrophils Percent Auto 62.2 % (45-73); Platelet Count 241 X10*3/uL (160-400); Red Blood Count 4.22 X10*6/uL (4.60-5.80); Red Cell Distribution Width 16.2 % (11.0-16.0); White Blood Count 7.3 X10*3/uL (4.8-10.8)
[2022-12-31 11:50] LABS: Appearance Urine Clear; Color Urine Yellow; Glucose Urine UA Negative (Negative); Leukocyte Esterase Urine Negative (Negative); Nitrite Urine Negative (Negative); PH 6.5 (5.0-9.0); UMIC TRIGGER UA YES; Urine Blood Trace (Negative); Urine Ketones Negative (Negative); Urine Protein 100 (2+) mg/dL (Neg-Trace)
[2022-12-31 11:56] LABS: Bacteria Urine None Seen (None Seen); Hyaline Casts Urine 0-2 /LPF (0-2); Squamous Epithelial Cell Urine 0-2 /HPF (0-2); WBC Urine 0-5 /HPF (0-5)
[2022-12-31 12:22] LABS: Albumin Level 3.2 g/dL (3.5-5.0); Anion Gap 13 (12-20); Blood Urea Nitrogen 21 mg/dL (9-16); Calcium 8.6 mg/dL (8.4-10.2); Carbon Dioxide 25 mmol/L (22-29); Chloride 107 mmol/L (96-108); Estimated Glomerular Filt Rate > 60; Magnesium 1.8 mg/dL (1.6-2.6); Phosphorus 3.2 mg/dL (2.7-4.5); Potassium 4.1 mmol/L (3.3-5.1); Sodium 141 mmol/L (135-145); Uric Acid 7.5 mg/dL (3.4-7.0)
[2022-12-31 12:25] LABS: Vitamin D 25-OH Total 26.7 ng/mL (>30)
[2022-12-31 12:58] LABS: Creatinine Urine 191.04 mg/dL; Protein/Creatinine Ratio, Ur 0.57 (<0.2); Total Protein Urine Random 109 mg/dL (<12)
[2022-12-31 13:16] LABS: Microalbum/Creatinine Ratio Ur 337.6 ug/mg cr
[2023-01-03 18:19] LABS: Calcium (PTHI) 8.8 mg/dL (8.6-10.3); PTHI 41 pg/mL (16-77)
== END 2022-12-31 10:34 | disposition home or self-care (01) ==
LOC: HO.LAB 10:33
PROVIDERS: PCP Internal Medicine; Visit Provider Internal Medicine Nephrology
DX: N04.9 Nephrotic syndrome with unspecified morphologic changes (principal); N04.2 Nephrotic syndrome with diffuse membranous glomerulonephritis; N03.2 Chronic nephritic syndrome with diffuse membranous glomerulonephritis; Z79.899 Other long term (current) drug therapy
CPT/HCPCS: 36415; 80051; 81001; 82040; 82043; 82306; 82310; 82565; 83735; 83970; 84100; 84156; 84520; 84550; 85025; 87086

== ENCOUNTER → 2023-02-11 09:36 | Outpatient (BNVA) | payer OTHER, SELFPAY | PROVIDERS: PCP Internal Medicine; Visit Provider Nurse Practitioner | DX: Z12.11 Encounter for screening for malignant neoplasm of colon (principal); D12.6 Benign neoplasm of colon, unspecified | CPT/HCPCS: 99212 ==

== ENCOUNTER → 2023-03-15 09:39 | Outpatient (BNVA) | payer OTHER, SELFPAY | PROVIDERS: PCP Internal Medicine; Visit Provider Internal Medicine | DX: J98.4 Other disorders of lung (principal); R06.00 Dyspnea, unspecified; R91.1 Solitary pulmonary nodule; Z87.891 Personal history of nicotine dependence | CPT/HCPCS: 99212 ==

== ENCOUNTER 2023-05-07 13:04 | Emergency (ER) | payer OTHER, SELFPAY ==
[2023-05-07 13:11] VITALS: BP 125/72; BP 130/73; PULSE 67; RESP 18; TEMP 36.6; O2SAT 95; BMI 26.2
[2023-05-07 15:33] VITALS: BP 136/82; PULSE 67; RESP 18; TEMP 36.6; O2SAT 95
--- NOTE | 2023-05-07 16:26 | ED.GENADULT ---
HPI - General Adult General Chief complaint: Fall Stated complaint: Recent fall, LOC, R rib pain Time Seen by Provider: 05/07/23 16:01 Source: patient Mode of arrival: EMS Limitations: no limitations History of Present Illness HPI narrative: 63-year-old male presents for evaluation after a fall. Patient reports that he fell last night around 10:00 p.m. The patient landed on his right side Hoes not know if he hit his head or not He does not believe he lost consciousness per next day complains of right-sided chest wall/rib pain His pain and comes and goes At worst it is 8/10 He reports that it is difficult to take a deep breath due to the pain Related Data Home Medications Medication Instructions Recorded Confirmed bupropion HCl 200 mg tablet,12 hr 200 mg PO BEDTIME 04/13/21 04/13/21 sustained-release hydroxyzine HCl 50 mg tablet 50 mg PO BEDTIME 04/13/21 04/13/21 ropinirole 4 mg tablet 4 mg PO BEDTIME 04/13/21 04/13/21 tamsulosin 0.4 mg capsule 0.4 mg PO BEDTIME 04/13/21 04/13/21 ergocalciferol (vitamin D2) 50 mcg 50 mcg PO DAILY 07/30/21 (2,000 unit) capsule ferrous sulfate 325 mg (65 mg 325 mg PO DAILY 07/30/21 iron) tablet (Feosol) rosuvastatin 40 mg tablet 20 mg PO DAILY 07/30/21 ropinirole 1 mg tablet 1 mg PO BID 01/25/22 sertraline 100 mg tablet 100 mg PO DAILY 01/25/22 albuterol sulfate 90 mcg/actuation 2 puff inhalation Q6H PRN 07/26/22 aerosol inhaler torsemide 60 mg tablet 20 mg PO BID 02/11/23 Previous Rx's Medication Instructions Recorded azithromycin 250 mg tablet See Rx Instructions PO .COMPLEX #6 05/07/23 tabs oxycodone 5 mg tablet 5 mg PO Q6H PRN severe pain (scale 05/07/23 score 7-10) #12 tabs Allergies Allergy/AdvReac Type Severity Reaction Status Date / Time Penicillins [PENICILLINS] Allergy Unknown UNKNOWN Verified 05/07/23 13:15 atorvastatin [From Lipitor] AdvReac Unknown Vomiting Verified 05/07/23 13:15 Review of Systems Constitutional: Constitutional: Denies chills and Denies fever(s) ENT: Denies vertigo Cardiovascular: Cardiovascular: Denies dyspnea Comments: Chest wall pain on the right Respiratory: Respiratory: Denies cough and Denies dyspnea Gastrointestinal: Gastrointestinal: Denies abdominal pain, Denies nausea and Denies vomiting Integumentary/Breasts: Skin/Breast: Denies rash Neurologic: Denies vertigo [facility] Past Medical History Medical History (Updated 05/07/23 @ 17:54 by Bill Doyle) BPH (benign prostatic hyperplasia) COPD (chronic obstructive pulmonary disease) Depression Dyspnea on exertion History of CVA (cerebrovascular accident) (~02/2021) Nephrotic syndrome Personal history of nicotine dependence Pleural effusion on right Restless leg Restrictive lung disease Sjogren's syndrome Surgical History (Updated 05/05/23 @ 10:43 by Tasneem Bay PA-C) History of colonoscopy History of facial fracture repair History of left knee surgery History of thoracentesis History of thumb surgery Status post biopsy of kidney Family History Family History Father Prostate cancer Brother Cancer Social History Social History Household Members: Spouse Housing: Apartment Do you presently have visiting nurse or other home services: No Patient Tobacco Use Status: Former Tobacco user Years Smoked: 30 years of smoking Substance Use Type: Marijuana Advance Directives: Yes Advance Directives on File: Yes Advance Directives Date on File: 02/19/21 service: Yes Current occupational status: employed Physical Exam ED Vital Signs: Vital Signs - 24 hr 05/07/23 13:11 05/07/23 15:33 05/07/23 17:32 Temperature 97.9 F 97.9 F Pulse Rate 67 67 Respiratory Rate 18 18 18 Blood Pressure 125/72 136/82 Pulse Oximetry 95 95 Oxygen Delivery Method Room Air Room Air BMI result Body Mass Index 26.2 Const General: healthy appearing, comfortable, no acute distress, alert and awake Nutritional Appearance: well nourished Orientation/consciousness: patient oriented x3 HENMT Head: Yes normocephalic and Yes atraumatic Eyes Eyelids: Yes eyelids normal Conjunctivae: conjunctivae normal Sclerae: sclerae normal Corneas: corneas normal Pupils: Equal, round and reactive pupils present EOM: EOMs intact bilaterally Neck Neck: Yes full ROM Chest Other: No ecchymosis, wounds to the right lateral chest pain the patient is tender palpation in the right anterior axillary line in the mid axillary line at the level of the 7th through 10th ribs. Chest palpation & inspection: no crepitus Resp Effort & Inspection: normal respiratory effort, able to speak in complete sentences, no audible wheezes and not labored Auscultation: clear to auscultation bilaterally Cardio Rate: regular rate Rhythm: regular rhythm GI Inspection: No distended Palpation (GI): Soft to palpation, not firm, nontender, no guarding and not rigid Auscultation: normoactive bowel sounds Skin General skin exam: elasticity normal Neuro General: patient oriented x3 Cranial nerves: Yes Equal, round and reactive pupils present and Yes Bilaterally intact EOM present Cognition (Neuro): normal cognition Extrem Other: Moving all extremities well without any obvious deformities Course Reevaluation(s) Reevaluation #1: Patient's CT scan resulted showing extensive changes along with related to his COPD which is not new for the patient. And does not document specifically on the ribs, I suspect the patient has at least 1 and possibly 2 rib fractures. The patient is high risk for developing pneumonia due to his COPD and rib fractures, we will treat with azithromycin, analgesia and he will be sent home with incentive spirometry. Time: 17:53 Medications Administered Discontinued Medications Generic Name Dose Route Start Last Admin Trade Name Alize PRN Reason Stop Dose Admin Morphine Sulfate 2 mg 05/07/23 16:23 05/07/23 17:32 Morphine Sulfate 2 Mg/Ml Cartridge IVPUSH 05/07/23 16:24 2 mg ONCE ONE Administration Protocol Ondansetron HCl 4 mg 05/07/23 16:23 05/07/23 17:33 Ondansetron Hcl 4 Mg/2 Ml Vial IVPUSH 05/07/23 16:24 4 mg ONCE ONE Administration Medical Decision Making Medical Decision Making MDM Narrative: Patient a fall last night that is reports nonsyncopal. He reports that he fell as he is stating his mother's house and the bathroom is too small for him to maneuver. He has pain mostly to his right ribs. There is now abdominal pain or tenderness on exam. On my review the x-ray the patient appears to have at least 1 right-sided rib fracture appears acute. Radiology reports that there are no rib fractures. Will get a CT scan to better evaluate Differential Diagnosis Chest wall contusion Fracture Pneumothorax Hemothorax Well chest Independent Interpretation I performed an independent interpretation of an: Plain X-Ray (Questionable to right-sided rib fractures) Radiology Impression Discussion of test interpretation with radiology: I have reviewed the radiologist's reading. (Unremarkable ribs) Discharge Plan Discharge Clinical Impression: Fracture of rib of right side Patient Disposition: Home, Self-Care Instructions: Rib Fracture (ED) Additional Instructions: And looks acute have at least 1 and possibly 2 rib fractures on the right Use azithromycin as directed to help ensure you do not get pneumonia Tylenol as needed for your pain Use oxycodone for more severe, breakthrough pain Use the incentive spirometry once every hour Return for new or worsening symptoms Prescriptions: New azithromycin 250 mg tablet See Rx Instructions .ROUTE .COMPLEX Qty: 6 0RF Rx Instructions: For 250 mg dose pack: take 500 mg today (day 1), then 250 mg for 4 days (days 2-5) oxycodone 5 mg tablet 5 mg PO Q6H PRN (Reason: severe pain (scale score 7-10)) Qty: 12 0RF Rx Instructions: Partial Fill upon patient request. No Action ropinirole 4 mg tablet 4 mg PO BEDTIME hydroxyzine HCl 50 mg Tablet 50 mg PO BEDTIME tamsulosin 0.4 mg Capsule 0.4 mg PO BEDTIME bupropion HCl 200 mg Tablet Sustained-Release 12 Hr 200 mg PO BEDTIME ropinirole 1 mg tablet 1 mg PO BID rosuvastatin 40 mg tablet 20 mg PO DAILY ergocalciferol (vitamin D2) 50 mcg (2,000 unit) capsule 50 mcg PO DAILY ferrous sulfate [Feosol] 325 mg (65 mg iron) tablet 325 mg PO DAILY sertraline 100 mg tablet 100 mg PO DAILY albuterol sulfate 90 mcg/actuation HFA aerosol inhaler 2 puff inhalation Q6H PRN torsemide 60 mg tablet 20 mg PO BID
[2023-05-07 17:32] VITALS: RESP 18
[2023-05-07] MEDS: Morphine Sulfate 2 MG/ML CARTRIDGE IVPUSH (17:32)
[2023-05-07] MEDS: ondansetron HCL 4 MG/2 ML VIAL IVPUSH (17:33)
[2023-05-07 18:04] VITALS: BP 124/72; PULSE 63; RESP 19; TEMP 35.6; O2SAT 96
== END 2023-05-07 18:18 | disposition home or self-care (01) ==
PROVIDERS: Emergency Provider Emergency Medicine
DX: S22.31XA Fracture of one rib, right side, initial encounter for closed fracture (principal); W19.XXXA Unspecified fall, initial encounter; R06.00 Dyspnea, unspecified; F12.90 Cannabis use, unspecified, uncomplicated; Z87.891 Personal history of nicotine dependence; Z86.73 Personal history of transient ischemic attack (TIA), and cerebral infarction without residual deficits; Z79.899 Other long term (current) drug therapy; Y93.9 Activity, unspecified; Y92.039 Unspecified place in apartment as the place of occurrence of the external cause; Y99.9 Unspecified external cause status
CPT/HCPCS: 70450; 71101; 71250; 94010; 96374; 96375; 99284; J2270; J2405

== ENCOUNTER 2023-05-13 | Outpatient (REF) | payer OTHER, SELFPAY | END 2023-05-13 00:01 | disposition home or self-care (01) | LOC: CF | PROVIDERS: PCP Internal Medicine; Visit Provider Physician Assistant Medical | DX: N04.9 Nephrotic syndrome with unspecified morphologic changes (principal); J90 Pleural effusion, not elsewhere classified; Z87.891 Personal history of nicotine dependence | CPT/HCPCS: G0296 ==

== ENCOUNTER 2023-11-01 13:04 | Outpatient (REF) | payer OTHER, SELFPAY ==
[2023-11-01 13:53] LABS: MANUAL DIFF FLAG NO
[2023-11-01 14:47] LABS: Basophils Percent Auto 0.2 % (0-2); Eosinophils Absolute Auto 0.6 X10*3/uL (0.0-0.4); Eosinophils Percent Auto 9.2 % (0-4); Hematocrit 37.9 % (42.0-52.0); Hemoglobin 12.4 g/dl (14.0-18.0); Imm Gran Abs Auto 0.02 X10*3/uL (0.00-0.03); Imm Gran Pct Auto 0.3 % (0.0-0.4); Lymphocytes Absolute Auto 1.6 X10*3/uL (1.2-4.9); Lymphocytes Percent Auto 26.1 % (20-40); Mean Corpuscular HGB Conc 32.7 g/dl (31.0-36.0); Mean Corpuscular Volume 82.6 fL (80.0-98.0); Mean Platelet Volume 9.2 fL (9.4-12.4); Monocytes Absolute Auto 0.7 X10*3/uL (0.1-1.2); Monocytes Percent Auto 11.1 % (2-11); Neutrophils Absolute Auto 3.2 x10*3/uL (2.0-8.3); Neutrophils Percent Auto 53.1 % (45-73); Platelet Count 184 X10*3/uL (160-400); Red Blood Count 4.59 X10*6/uL (4.60-5.80); Red Cell Distribution Width 13.9 % (11.0-16.0); White Blood Count 6.1 X10*3/uL (4.8-10.8)
[2023-11-01 15:06] LABS: Calcium 9.1 mg/dL (8.4-10.2)
[2023-11-01 15:10] LABS: Anion Gap 9 (12-20); Blood Urea Nitrogen 21 mg/dL (9-16); Carbon Dioxide 27 mmol/L (22-29); Chloride 106 mmol/L (96-108); Estimated Glomerular Filt Rate > 60; Potassium 3.4 mmol/L (3.3-5.1); Sodium 139 mmol/L (135-145)
== END 2023-11-01 13:05 | disposition home or self-care (01) ==
LOC: HO.LAB 13:04
PROVIDERS: PCP Internal Medicine Nephrology; Visit Provider Internal Medicine
DX: N03.2 Chronic nephritic syndrome with diffuse membranous glomerulonephritis (principal); N04.20 Nephrotic syndrome with diffuse membranous glomerulonephritis, unspecified; N04.9 Nephrotic syndrome with unspecified morphologic changes; R60.0 Localized edema; R91.1 Solitary pulmonary nodule; J98.4 Other disorders of lung
CPT/HCPCS: 36415; 80051; 82310; 82565; 84520; 85025; 99212

== ENCOUNTER 2023-11-01 13:04 | Outpatient (AMB) | payer OTHER, SELFPAY ==
--- NOTE | 2023-11-01 13:12 | MHC.OFFVIS ---
Intake Vital Signs 11/01/23 13:15 Height 6 ft 1 in BP 120/70 Blood Pressure Location Lt brachial Position Sitting Pulse 67 Pulse Oximetry (%) 96 Oxygen Delivery Method Room Air Intake Visit Reasons: COPD Intake Note: pt is here for follow up and states he states some coughing and shortness of breath when bending. PLEASE SEND IN REFILL ON ALUBTEROL HFA TO [place] 3 MONTHS PLEASE. 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: No Allergies Penicillins [PENICILLINS] Allergy (Unknown, Verified 11/01/23 13:21) UNKNOWN atorvastatin [From Lipitor] Adverse Reaction (Unknown, Verified 11/01/23 13:21) Vomiting Medication List - Last Reconciled 11/01/23 by Alma Whelan MD albuterol sulfate 90 mcg/actuation 2 puffs inhalation Q6H PRN bupropion HCl 200 mg PO BEDTIME ergocalciferol (vitamin D2) 50 mcg PO DAILY ferrous sulfate (Feosol) 325 mg PO DAILY hydroxyzine HCl 50 mg PO BEDTIME oxycodone 5 mg PO Q6H PRN ropinirole 4 mg PO BEDTIME ropinirole 1 mg PO BID rosuvastatin 20 mg PO DAILY sertraline 50 mg PO DAILY tamsulosin 0.4 mg PO BEDTIME torsemide 20 mg PO BID Do you need a note to return to daycare/school/sports/work: No HPI COPD HPI Details 63 years old , past history of smoking but does not smoke anymore. He has only borderline chronic obstructive pulmonary disease, in has mild intermittent cough with shortness of breath on exertion. However his gait is impaired and he does not walk much. He uses albuterol only once in a while on a p.r.n. basis. He is a case of cirrhosis of liver which is also staying well controlled. Has had restless leg syndrome and is controlled with the use of ropinirole. Last low-dose CT scan of the chest was in May 2023, which does show small pulmonary nodules, and he is in annual lung screening program. [facility] Medical History History of CVA (cerebrovascular accident) (~02/2021) Personal history of nicotine dependence Sjogren's syndrome Depression Restless leg BPH (benign prostatic hyperplasia) Restrictive lung disease Nephrotic syndrome Pleural effusion on right COPD (chronic obstructive pulmonary disease) Dyspnea on exertion Surgical History History of facial fracture repair History of left knee surgery History of thumb surgery History of colonoscopy Status post biopsy of kidney History of thoracentesis Family History Father Prostate cancer Brother Lung cancer Social History Household Members: Spouse Housing: Apartment Do you presently have visiting nurse or other home services: No Comment: air loss bed Patient Tobacco Use Status: Former Tobacco user Quit Date: 12/11/2014 Years Smoked: onset 19yo, 1ppd x 36yrs, 35pyh - quit 12/11/2014) Substance Use Type: Marijuana Advance Directives Date on File: 02/19/21 service: Yes Current occupational status: employed Review of Systems Const All systems reviewed & are unremarkable except as noted in HPI and below Eyes Reports no additional complaints ENT Reports nasal congestion (mild off and on ) Card Denies chest pain, Denies irregular heart rhythm and Reports leg edema Resp Reports as per HPI GI Reports no additional complaints Reports urinary hesitancy Musc Reports back pain (mild ) Skin/Breast Reports lesions (scabbed lesions on lt thigh ) Neuro Reports focal weakness (rt upper and lower extremilty) Psych Reports no additional complaints Physical Exam Vital Signs: Last Vital Signs Pulse 67 11/01/23 13:15 BP 120/70 11/01/23 13:15 Pulse Ox 96 11/01/23 13:15 Oxygen Delivery Method Room Air 11/01/23 13:15 Const Other: IN WHEELCHAIR General: comfortable, no acute distress, alert and awake Orientation/consciousness: patient oriented x3 HEENT Head: Yes normal to inspection General nose exam: No nasal polyps present and No nasal discharge present Face and sinus: Yes sinuses nontender Mouth: oropharynx normal Throat: Yes posterior oropharynx normal Eyes General: appearance normal, both eyes and all related structures Neck Neck: Yes normal visual inspection, Yes no lymphadenopathy, Yes trachea midline and Yes no JVD Thyroid: Thyroid normal Chest Chest palpation & inspection: normal inspection of the chest, normal palpation of entire chest wall and no tenderness Resp Other: Percussion note is resonant on both sides, Breath sounds slightly decreased over the basilar areas and normal over the rest of the lungs. No inspiratory or expiratory wheezes are heard today. Cardio Palpation: normal PMI Rate: regular rate Rhythm: regular rhythm Heart sounds: no gallops and no murmurs GI Palpation (GI): Soft to palpation, nontender, No hepatosplenomegaly present, no masses and Other GI palpation findings present (No ascites present this time) Auscultation: normal bowel sounds Back/Spine/Pelvis Thoracic/Lumbar Spine: thoracic and lumbar spine normal to inspection Skin General skin exam: no rashes or lesions noted Neuro General: patient oriented x3, No gait normal (Gait is impaired, patient uses wheelchair) and no focal motor deficits Cranial nerves: Yes CN's II-XII intact bilaterally Extrem General: Yes normal to inspection, Yes no clubbing, cyanosis or edema and Yes no calf tenderness Psych Appearance: grossly normal and well kempt Speech and movement: Normal speech and movement present Results Reviewed Results Reviewed: LDCT 05/29 IMPRESSION: 1. [id number] centrilobular emphysematous change of lungs. 2. Bronchiectasis with bronchial wall thickening at lung bases. 3. Dependent atelectasis at both lung bases. 4. Small bilateral pleural effusions. 5. Mild hydronephrosis of left kidney. Small nonobstructive calculi in each kidney. 6. Small linear calcifications of the wall of the fundus of the gallbladder. No surrounding edema of the gallbladder. No bile duct dilatation. 7. There are a few small calcified and noncalcified micronodules in lungs stable since study of 2019. No new or suspicious lung nodule. No follow-up imaging would be recommended. Assessment & Plan Assessment & Plan (1) Dyspnea on exertion: Comment: Sec to Restrictive Component , No COPD , as per PFTs . MAY USE ALBUTEROL HFA 2 PUFFS Q 6 hRS ONLY prn . KEEP ON DOING DEEP BREATHING EXERCISES . Code(s): R06.00 - Dyspnea, unspecified Plan: as above (2) Pulmonary nodule: Comment: * THE LAST CT SCAN OF THE CHEST in May 2023 showed small pulmonary nodules . less than 6 mm in size . THERE WAS MILD TO MODERATE DEGREE OF PLEURAL EFFUSION ON THE LEFT SIDE AND ONLY MINIMAL ON THE RIGHT SIDE. Code(s): R91.1 - Solitary pulmonary nodule Plan: Patient is getting annual says low-dose CT scan. He will continue to be in annual lung screening program. (3) Restrictive lung disease: Comment: Moderately severe Restrictive disorder , probably on basis of Nephrotic Syndrome , and small basilar effusions . Clinically improved at present. Continue doing deep breathing exercises every day , Code(s): J98.4 - Other disorders of lung Plan: Continue to do deep breathing exercises Coding Level of Care Code Est Pt Level 3 (41923) Diagnoses Dyspnea on exertion R06.00 Pulmonary nodule R91.1 Restrictive lung disease J98.4
[2023-11-01 13:15] VITALS: BP 120/70; PULSE 67; O2SAT 96
== END 2023-11-01 13:29 | disposition home or self-care (01) ==
PROVIDERS: PCP Internal Medicine; Visit Provider Internal Medicine
DX: R06.00 Dyspnea, unspecified (principal); R91.1 Solitary pulmonary nodule; J98.4 Other disorders of lung
CPT/HCPCS: 99213

== ENCOUNTER 2023-11-02 11:54 | Outpatient (REF) | payer OTHER, SELFPAY ==
[2023-11-02 12:12] LABS: Appearance Urine Cloudy; Color Urine Yellow; Glucose Urine UA Negative (Negative); Leukocyte Esterase Urine Moderate (2+) (Negative); Nitrite Urine Positive (Negative); UMIC TRIGGER UA YES; Urine Blood Negative (Negative); Urine Ketones Negative (Negative); Urine Protein 100 (2+) mg/dL (Neg-Trace)
[2023-11-02 12:25] LABS: Bacteria Urine 4+ (None Seen); Hyaline Casts Urine 0-2 /LPF (0-2); Other Crystals Urine Present; Squamous Epithelial Cell Urine 0-2 /HPF (0-2); WBC Urine >50 /HPF (0-5)
[2023-11-02 13:35] LABS: Creatinine Urine 223.88 mg/dL; Protein/Creatinine Ratio, Ur 0.43 (<0.2); Total Protein Urine Random 97 mg/dL (<12)
[2023-11-02 13:46] LABS: Microalbum/Creatinine Ratio Ur 223.3 ug/mg cr (<30)
== END 2023-11-02 11:55 | disposition home or self-care (01) ==
LOC: HO.LNP 11:54
PROVIDERS: Visit Provider Internal Medicine Nephrology
DX: N04.20 Nephrotic syndrome with diffuse membranous glomerulonephritis, unspecified (principal); N03.2 Chronic nephritic syndrome with diffuse membranous glomerulonephritis
CPT/HCPCS: 81001; 82043; 82570; 84156

== ENCOUNTER 2024-05-16 14:29 | Outpatient (AMB) | payer OTHER, SELFPAY ==
--- NOTE | 2024-05-16 14:38 | A.OFFVIS_ITS ---
Vital Signs 05/16/24 14:39 Height 6 ft Weight 214 lb BMI 29.0 BP 102/70 Blood Pressure Location Lt brachial Position Sitting Pulse 73 Pulse Source Pulse Oximeter Pulse Oximetry (%) 95 Oxygen Delivery Method Room Air Intake Visit Reasons: COPD Intake Note: pt is here for follow up and states his breathing is good. 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 Allergies Penicillins [PENICILLINS] Allergy (Unknown, Verified 05/16/24 14:58) UNKNOWN atorvastatin [From Lipitor] Adverse Reaction (Unknown, Verified 05/16/24 14:58) Vomiting Medication List - Last Reconciled 05/16/24 by Alma Whelan MD albuterol sulfate 90 mcg/actuation 2 puffs inhalation Q4-6H PRN 90 days bupropion HCl SR 200 mg PO BEDTIME ergocalciferol (vitamin D2) 50 mcg PO DAILY ferrous sulfate (Feosol) 325 mg PO DAILY hydroxyzine HCl 50 mg PO BEDTIME oxycodone 5 mg PO Q6H PRN ropinirole 4 mg PO BEDTIME ropinirole 1 mg PO BID rosuvastatin 20 mg PO DAILY sertraline 50 mg PO DAILY tamsulosin 0.4 mg PO BEDTIME torsemide 20 mg PO BID Do you need a note to return to daycare/school/sports/work: No HPI HPI COPD: Details: 64 years old very pleasant gentleman, a , comes for follow-up after 6 months, for his mild intermittent bronchial asthma. He has albuterol HFA that he uses p.r.n. he comes here today mainly because he needs a refill. During the past 1 year he has had no acute attacks. He has had no chest infection. He is a former smoker but quit in 2014 He does smoke marijuana once in a while. He has had right hemiplegia since 2020 after an accident related stroke. [facility] Medical History History of CVA (cerebrovascular accident) (~02/2021) Personal history of nicotine dependence Sjogren's syndrome Depression Restless leg BPH (benign prostatic hyperplasia) Restrictive lung disease Nephrotic syndrome Pleural effusion on right COPD (chronic obstructive pulmonary disease) Dyspnea on exertion Surgical History History of facial fracture repair History of left knee surgery History of thumb surgery History of colonoscopy Status post biopsy of kidney History of thoracentesis Family History Father Prostate cancer Brother Lung cancer Social History Household Members: Spouse Housing: Apartment Do you presently have visiting nurse or other home services: No Comment: air loss bed Patient Tobacco Use Status: Former Tobacco user Years Smoked: onset 19yo, 1ppd x 36yrs, 35pyh - quit 12/11/2014) Substance Use Type: Marijuana Advance Directives Date on File: 02/19/21 service: Yes Current occupational status: employed Review of Systems Const All systems reviewed & are unremarkable except as noted in HPI and below Eyes Reports no additional complaints ENT Reports nasal congestion (mild off and on ) Card Denies chest pain, Denies irregular heart rhythm and Reports leg edema Resp Reports as per HPI GI Reports no additional complaints Reports urinary hesitancy Musc Reports back pain (mild ) Skin/Breast Reports lesions (scabbed lesions on lt thigh ) Neuro Reports focal weakness (rt upper and lower extremilty) Psych Reports no additional complaints Physical Exam Vital Signs: Last Vital Signs Pulse 73 05/16/24 14:39 BP 102/70 05/16/24 14:39 Pulse Ox 95 05/16/24 14:39 Oxygen Delivery Method Room Air 05/16/24 14:39 BMI result Body Mass Index 29.0 Const Other: IN WHEELCHAIR General: comfortable, no acute distress, alert and awake Orientation/consciousness: patient oriented x3 HEENT Head: Yes normal to inspection General nose exam: No nasal polyps present and No nasal discharge present Face and sinus: Yes sinuses nontender Mouth: oropharynx normal Throat: Yes posterior oropharynx normal Eyes General: appearance normal, both eyes and all related structures Neck Neck: Yes normal visual inspection, Yes no lymphadenopathy, Yes trachea midline and Yes no JVD Thyroid: Thyroid normal Chest Chest palpation & inspection: normal inspection of the chest, normal palpation of entire chest wall and no tenderness Resp Other: Percussion note is resonant on both sides, Breath sounds slightly decreased over the basilar areas . No inspiratory or expiratory wheezes are heard today. Cardio Palpation: normal PMI Rate: regular rate Rhythm: regular rhythm Heart sounds: no gallops and no murmurs GI Palpation (GI): Soft to palpation, nontender, No hepatosplenomegaly present, no masses and Other GI palpation findings present (No ascites present this time) Auscultation: normal bowel sounds Back/Spine/Pelvis Thoracic/Lumbar Spine: thoracic and lumbar spine normal to inspection Skin General skin exam: no rashes or lesions noted Neuro General: patient oriented x3, No gait normal (Gait is impaired, patient uses wheelchair) and other (He has the chronic right hemiplegia with flexion contractures of the right ) Extrem General: Yes normal to inspection, Yes no clubbing, cyanosis or edema and Yes no calf tenderness Psych Appearance: grossly normal and well kempt Speech and movement: Normal speech and movement present Assessment & Plan Assessment & Plan (1) Personal history of nicotine dependence: Comment: (Former smoker - onset 19yo, 1ppd x 36yrs, 35pyh - quit 12/11/2014) Code(s): Z87.891 - Personal history of nicotine dependence Category: Medical Plan: Again stress that he should not go back to smoking at all. (2) Restrictive lung disease: Comment: Moderately severe Restrictive disorder , probably on basis of Nephrotic Syndrome , and small basilar effusions . Clinically improved at present. Code(s): J98.4 - Other disorders of lung Category: Medical Plan: Continue doing deep breathing exercises at least 3 times a day Patient needs to have albuterol HFA on hand and use 1 or 2 puffs Q 6 hours only p.r.n. if there is any sustained cough or wheezing. I have ordered the prescription at [place] [facility]. For future refills I think he can get orders by his primary care physician. But if there is a need to come and see me in the office all be glad to see him. (3) Pleural effusion on right: Comment: He has had bilateral pleural effusions on basis of nephrotic syndrome in the past, At present there is no sign of anasarca or pleural effusions. Code(s): J90 - Pleural effusion, not elsewhere classified Category: Medical Plan: Continue on diuretic therapy. Medications: Refilled albuterol sulfate 90 mcg/actuation 2 puffs inhalation Q4-6H 90 days PRN 8.5 grams 3RF shortness of breath or wheezing Coding Level of Care Code Est Pt Level 3 (02648) Diagnoses Personal history of nicotine dependence Z87.891 Restrictive lung disease J98.4 Pleural effusion on right J90
[2024-05-16 14:39] VITALS: BP 102/70; PULSE 73; O2SAT 95; BMI 29.0
== END 2024-05-16 14:58 | disposition home or self-care (01) ==
PROVIDERS: PCP Internal Medicine; Referring Provider Internal Medicine; Visit Provider Internal Medicine
DX: Z87.891 Personal history of nicotine dependence (principal); J98.4 Other disorders of lung; J90 Pleural effusion, not elsewhere classified
CPT/HCPCS: 99213

== ENCOUNTER → 2024-05-16 14:29 | Outpatient (BNVA) | payer OTHER, SELFPAY | PROVIDERS: PCP Internal Medicine; Visit Provider Internal Medicine | DX: J98.4 Other disorders of lung (principal); J90 Pleural effusion, not elsewhere classified; Z87.891 Personal history of nicotine dependence | CPT/HCPCS: 99212 ==